=== PATIENT | male | born 1950 | race Caucasian/White ===

== ENCOUNTER → 2017-09-29 13:07 | Outpatient (CLI) | payer MEDICARE, MEDICAID, SELFPAY | PROVIDERS: Family Provider Family Medicine; PCP Family Medicine; Visit Provider Internal Medicine | DX: L89.611 Pressure ulcer of right heel, stage 1 (principal); G82.50 Quadriplegia, unspecified | CPT/HCPCS: 99213 ==

== ENCOUNTER → 2017-12-08 12:05 | Outpatient (CLI) | payer MEDICARE, MEDICAID, SELFPAY ==
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
== END ==
PROVIDERS: Family Provider Family Medicine; PCP Family Medicine; Visit Provider Internal Medicine
DX: G82.50 Quadriplegia, unspecified (principal); L89.153 Pressure ulcer of sacral region, stage 3
CPT/HCPCS: 11042; 11045

== ENCOUNTER → 2017-12-14 15:16 | Outpatient (CLI) | payer MEDICARE, MEDICAID, SELFPAY ==
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
== END ==
PROVIDERS: Family Provider Family Medicine; PCP Family Medicine; Visit Provider Internal Medicine
DX: L89.153 Pressure ulcer of sacral region, stage 3 (principal)
CPT/HCPCS: 11042

== ENCOUNTER → 2017-12-15 13:12 | Outpatient (REF) | payer MEDICARE, MEDICAID, SELFPAY ==
[2017-12-15 13:45] LABS: Appearance Urine UA CLEAR; Bilirubin Urine UA NEGATIVE (NEGATIVE); Color Urine UA YELLOW; Glucose Urine UA NEGATIVE (Normal); Ketones Urine UA NEGATIVE (NEGATIVE); Leukocyte Esterase Urine UA 2+ (NEGATIVE); Nitrite Urine UA POSITIVE (Negative); Occult Blood Urine UA 2+ (Negative); Protein Urine UA TRACE (Negative); Urobilinogen Urine UA 0.2 E.U./dL (0.2); pH Urine UA 7.5 (4.5-8.0)
[2017-12-15 14:08] LABS: Bacteria Urine Many (>30); Culture Indicated Urine Specimen Cultured; RBC Urine 0-1/HPF (0-5/HPF); WBC Urine 30-100/HPF (0-5/HPF)
== END ==
LOC: LAB 13:12
PROVIDERS: Family Provider Family Medicine; PCP Family Medicine; Visit Provider Family Medicine
DX: R39.9 Unspecified symptoms and signs involving the genitourinary system (principal)
CPT/HCPCS: 81001; 87077; 87086; 87186

== ENCOUNTER → 2017-12-21 11:15 | Outpatient (CLI) | payer MEDICARE, MEDICAID, SELFPAY ==
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
== END ==
PROVIDERS: Family Provider Family Medicine; PCP Family Medicine; Visit Provider Internal Medicine
DX: L89.153 Pressure ulcer of sacral region, stage 3 (principal); G82.21 Paraplegia, complete
CPT/HCPCS: 99213

== ENCOUNTER → 2018-04-04 15:32 | Outpatient (CLI) | payer MEDICARE, MEDICAID, SELFPAY ==
[2018-04-04 16:27] LABS: Appearance Urine UA CLOUDY; Bilirubin Urine UA NEGATIVE (NEGATIVE); Color Urine UA YELLOW; Glucose Urine UA NEGATIVE (Normal); Ketones Urine UA NEGATIVE (NEGATIVE); Leukocyte Esterase Urine UA 2+ (NEGATIVE); Nitrite Urine UA NEGATIVE (Negative); Occult Blood Urine UA 3+ (Negative); Protein Urine UA 2+ (Negative); Urobilinogen Urine UA 0.2 E.U./dL (0.2); pH Urine UA 8.5 (4.5-8.0)
[2018-04-04 16:45] LABS: RBC Urine 10-30/HPF (0-5/HPF); Squamous Epithelial Cell Urine 1-5 /HPF; WBC Urine 10-30/HPF (0-5/HPF)
[2018-04-04 16:46] LABS: Amorphous Sediment Urine 2+; Bacteria Urine Many (>30); Culture Indicated Urine Specimen Cultured; Mucus Urine 2+ (Negative)
== END ==
PROVIDERS: Family Provider Family Medicine; PCP Family Medicine; Visit Provider Family Medicine
DX: R30.0 Dysuria (principal)
CPT/HCPCS: 81003; 81015; 87077; 87086; 87186

== ENCOUNTER 2018-05-02 10:52 | Emergency (ER) | payer MEDICARE, MEDICAID, SELFPAY ==
[2018-05-02 11:22] VITALS: PULSE 86; RESP 12; TEMP 36.3; O2SAT 98
--- NOTE | 2018-05-02 11:31 | PC.NURSE ---
pt refused for bp to be taken and refused to be in stretcher.
--- NOTE | 2018-05-02 11:57 | PC.NURSE ---
24 FR found and placed at BS, awaiting MD assessment and orders
--- NOTE | 2018-05-02 12:55 | ED.MALEGU ---
HPI - Male Genitourinary <JANI Terry - Last Filed: 05/02/18 21:22> General Chief complaint: Urogenital-Male Stated complaint: CATH PULLED OUT Time Seen by Provider: 05/02/18 12:09 Source: patient Mode of arrival: wheelchair Limitations: no limitations History of Present Illness HPI Narrative: 67-year-old male with history of paraplegia is a everyday smoker here for complaint of his super pubic catheter being a accidentally pulled out last night. He states that the caregiver help to get him from his wheelchair into his bed when the catheter bag caught on the wheelchair and accidentally caused the catheter to come out. He states that he has not had the catheter in place for approximately 12 hr. He denies any discomfort. Denies any bleeding. He has been draining from the super pubic site is use been using a paper towel to absorb the urine. No other concerns or complaints today. MD Complaint: other Related Data Previous Rx's Medication Instructions Recorded Wheelchair Air Compression Cushion #1 ea 12/21/17 gabapentin 400 mg capsule 400 mg PO TID #90 cap 12/21/[address] #1 ea 01/24/18 ciprofloxacin 500 mg tablet 500 mg PO BID #30 tab 04/05/18 Allergies Allergy/AdvReac Type Severity Reaction Status Date / Time No Known Drug Allergies Allergy Unverified 12/07/17 16:42 Review of Systems <JANI Terry - Last Filed: 05/02/18 21:22> Constitutional Denies chills, Denies fever(s), Denies lethargy and Denies weakness Eyes Denies change in vision, Denies eye discharge, Denies irritation and Denies loss of vision ENT Ears, Nose, Mouth, and Throat: Denies change in voice, Denies neck pain and Denies sore throat Cardiovascular Denies chest pain, Denies irregular heart rhythm, Denies lightheadedness, Denies palpitations, Denies dyspnea, Denies dyspnea on exertion and Denies orthopnea Respiratory Denies cough, Denies dyspnea, Denies dyspnea on exertion and Denies wheezing Gastrointestinal Gastrointestinal: Denies abdominal pain, Denies change in bowel habits, Denies diarrhea, Denies nausea and Denies vomiting Genitourinary Comments: Suprapubic catheter accidentally removed Musculoskeletal Denies neck pain Integumentary/Breasts Denies pruritus, Denies erythema, Denies rash and Denies wounds Neurologic Denies confusion, Denies loss of vision and Denies weakness Psychiatric Denies anxiety, Denies confusion, Denies depression, Denies homicidal ideation and Denies suicidal ideation Endocrine Denies palpitations Hematologic/Lymphatic Denies easy bruising Allergic/Immunologic Denies wheezing Exam <JANI Terry - Last Filed: 05/02/18 21:22> Initial Vital Signs Initial Vital Signs: Vital Signs Temperature 97.3 F L 05/02/18 11:22 Pulse Rate 86 05/02/18 11:22 Respiratory Rate 12 05/02/18 11:22 Pulse Oximetry 98 05/02/18 11:22 Const General: cooperative and well developed Nutritional Appearance: well nourished Orientation: alert, awake, oriented x3 and not confused HENMT Mouth: oral mucosae normal and moist mucous membranes Throat: posterior oropharynx normal Eyes Conjunctivae: conjunctivae normal Sclera: sclerae normal Pupils: PERRL EOM: EOM intact bilaterally Resp Effort & Inspection: normal respiratory effort, able to speak in complete sentences, no respiratory distress and no use of accessory muscles Auscultation: clear to auscultation bilaterally, no rales, no rhonchi and no wheezes Cardio Rate: regular rate Rhythm: regular rhythm Heart Sounds: no click, no gallops, no murmurs and no rubs Pulses: normal peripheral pulses Other: Suprapubic site with no signs of trauma. No erythema. No signs of infection. <Suma Montaño DO - Last Filed: 05/05/18 13:17> Initial Vital Signs Initial Vital Signs: Vital Signs Temperature 97.3 F L 05/02/18 11:22 Pulse Rate 86 05/02/18 11:22 Respiratory Rate 12 05/02/18 11:22 Pulse Oximetry 98 05/02/18 11:22 Course <JANI Terry - Last Filed: 05/02/18 21:22> Vital Signs - 8 hr 05/02/18 11:22 Temperature 97.3 F L Pulse Rate 86 Respiratory Rate 12 Pulse Oximetry 98 <Suma Montaño DO - Last Filed: 05/05/18 13:17> Vital Signs - 8 hr 05/02/18 11:22 Temperature 97.3 F L Pulse Rate 86 Respiratory Rate 12 Pulse Oximetry 98 MDM - Male Genitourinary <Ivan WestJANI - Last Filed: 05/02/18 21:22> [facility] Narrative Medical decision making narrative: Discussed case with Dr. 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 Tyson. He states there is no contraindications in stock replacing the suprapubic catheter after 12 hr. Suprapubic catheter was replaced with 24 Romanian balloon catheter with no complications. Catheter is draining clear light urine. Follow up with primary care provider. Per follow up with Urology. Patient refused to have blood pressure checked today. For any worsening symptoms return emergency room. Discharge Plan Departure Patient Disposition: Home Clinical Impression: Encounter for suprapubic catheter care Discharge Date/Time: 05/02/18 14:38 Interventions: ED Discharge Assessment Last Done: 05/02/18 13:44 Instructions: How to Care for a Suprapubic Catheter Activity Restrictions/Additional Instructions: Suprapubic catheter was replaced today. Follow up with her primary care provider. Follow up with Urology. For any worsening symptoms return to the emergency room. Prescriptions: No Action Wheelchair Air Compression Cushion Qty: 1 RF: 0 gabapentin [Neurontin] 400 mg capsule 400 mg PO TID Qty: 90 RF: [address] Qty: 1 RF: 0 ciprofloxacin HCl 500 mg tablet 500 mg PO BID Qty: 30 RF: 0 Referrals: Jessie Haile DO [Primary Care Provider] - <Suma Montaño DO - Last Filed: 05/05/18 13:17> Cosign ED Attending Cosignature Attestation: I was immediately available in the department for consultation, case was discussed and plan to consult with urology. Per there recommendations catheter was placed, patient tolerated well and was draining. This documentation has been reviewed and I agree with assessment and plan. Supervised by Suma Montaño DO
== END 2018-05-02 14:38 | disposition home or self-care (01) ==
PROVIDERS: Emergency Provider Nurse Practitioner Family; Family Provider Family Medicine; PCP Family Medicine
DX: Z43.5 Encounter for attention to cystostomy (principal)
CPT/HCPCS: 99282

== ENCOUNTER → 2018-05-16 16:41 | Outpatient (CLI) | payer MEDICARE, MEDICAID, SELFPAY | PROVIDERS: Family Provider Family Medicine; PCP Family Medicine; Visit Provider Family Medicine | DX: J18.9 Pneumonia, unspecified organism (principal); R05 Cough | CPT/HCPCS: 87070; 87205 ==

== ENCOUNTER 2018-06-22 12:04 | Inpatient (IN) | payer MEDICARE, MEDICAID, SELFPAY ==
[2018-06-22] VITALS (11 sets, daily range): BP systolic 169–194; BP diastolic 75–120; PULSE 70–97; RESP 16–27; TEMP 36.6–36.8; O2SAT 93–100; BMI 17.4
--- NOTE | 2018-06-22 13:00 | ED.URI ---
HPI - URI/Sore Throat <JANI Terry - Last Filed: 06/22/18 21:37> General Chief Complaint: Upper Respiratory Symptoms Stated Complaint: REOCCURING PNUMONIA Time Seen by Provider: 06/22/18 13:00 Source: patient and other Mode of arrival: wheelchair Limitations: no limitations History of Present Illness HPI Narrative: 67-year-old male with history of paraplegia and is a everyday smoker here for complaint of having cough and and malaise over the past couple of days. He is concerned that he is starting to have pneumonia. He reports having a productive cough as well. Positive p.o. intake. He states he feels he may have had a fever over the past couple of days although has been checked. Positive chills. He has had positive p.o. intake although decreased appetite. No chest pain. No flank pain. He states that he had pneumonia in May and was treated with Levaquin. He reports that he did not complete the Levaquin treatment as I gave him diarrhea. Related Data Allergies Allergy/AdvReac Type Severity Reaction Status Date / Time No Known Drug Allergies Allergy Unverified 06/22/18 12:12 Review of Systems <JANI Terry - Last Filed: 06/22/18 21:37> Constitutional Reports chills, Reports fever(s), Denies lethargy and Denies weakness Eyes Denies change in vision, Denies eye discharge, Denies irritation and Denies loss of vision ENT Ears, Nose, Mouth, and Throat: Denies change in voice, Denies neck pain, Denies sore throat and Denies throat swelling Cardiovascular Denies chest pain, Denies irregular heart rhythm, Denies lightheadedness, Denies palpitations and Denies orthopnea Respiratory Reports cough and Denies wheezing Gastrointestinal Gastrointestinal: Denies abdominal pain, Denies change in bowel habits, Denies diarrhea, Denies nausea and Denies vomiting Genitourinary Denies hematuria, Denies flank pain, Denies urinary incontinence and Denies urinary urgency Musculoskeletal Denies neck pain Integumentary/Breasts Denies pruritus, Denies erythema, Denies rash and Denies wounds Neurologic Denies loss of vision and Denies weakness Endocrine Denies palpitations Allergic/Immunologic Denies urticaria, Denies throat swelling and Denies wheezing PFSH <JANI Terry - Last Filed: 06/22/18 21:37> Medical History Aortic stenosis (Chronic Unknown) COPD (chronic obstructive pulmonary disease) (Chronic Unknown) Erectile dysfunction (Chronic Unknown) Neurogenic bladder (Chronic Unknown) PAD (peripheral artery disease) (Chronic Unknown) Paraplegia (Chronic ~1969) Suprapubic catheter (Chronic Unknown) Surgical History History of ankle surgery (Resolved Unknown) History of bladder stone (Resolved ~09/2014) History of bladder surgery (Resolved Unknown) History of open reduction and internal fixation (ORIF) procedure (Resolved Unknown) History of pressure ulcer (Resolved Unknown) Hx of cataract surgery (Resolved Unknown) Family History Brother Diabetes mellitus Father Skin cancer Mother Diabetes mellitus Social History household members: family Smoking Status: Current every day smoker alcohol intake: current substance use type: marijuana Family History Brother Diabetes mellitus Father Skin cancer Mother Diabetes mellitus Social History household members: family Smoking Status: Current every day smoker alcohol intake: current substance use type: marijuana Exam <JANI Terry - Last Filed: 06/22/18 21:37> Initial Vital Signs Initial Vital Signs: Vital Signs Temperature 98.3 F 06/22/18 12:07 Pulse Rate 78 06/22/18 12:07 Respiratory Rate 20 06/22/18 12:07 Blood Pressure 176/88 H 06/22/18 12:07 Pulse Oximetry 93 06/22/18 12:07 Const General: cooperative and well developed Nutritional Appearance: well nourished Orientation: alert, awake, oriented x3 and not confused HENMT Mouth: oral mucosae normal and moist mucous membranes Eyes Conjunctivae: conjunctivae normal Sclera: sclerae normal Pupils: PERRL EOM: EOM intact bilaterally Resp Effort & Inspection: normal respiratory effort, able to speak in complete sentences, no respiratory distress and no use of accessory muscles Auscultation: clear to auscultation bilaterally, rales bilaterally, no rhonchi and no wheezes Cardio Rate: regular rate Rhythm: regular rhythm Heart Sounds: no click, no gallops, no murmurs and no rubs Pulses: normal peripheral pulses GI Inspection: non-distended Palpation: soft, no hepatosplenomegaly, No guarding, No pulsatile mass and No tender Auscultation: normal bowel sounds Skin General: no rashes or lesions noted, No jaundice and No petechiae Neuro General: alert and oriented x3 Speech: speech normal <Wayne Boothe DO - Last Filed: 06/27/18 07:36> Initial Vital Signs Initial Vital Signs: Vital Signs Temperature 98.3 F 06/22/18 12:07 Pulse Rate 78 06/22/18 12:07 Respiratory Rate 20 06/22/18 12:07 Blood Pressure 176/88 H 06/22/18 12:07 Pulse Oximetry 93 06/22/18 12:07 Course <JANI Terry - Last Filed: 06/22/18 21:37> Orders Ordered: Discontinued Medications Albuterol/Ipratropium (Duoneb) 3 ml INH NOW ONE Stop: 06/22/18 13:41 Last Admin: 06/22/18 13:44 Dose: 3 ml Albuterol/Ipratropium (Duoneb) 3 ml INH RTQ4HR PRN PRN Reason: Bronchospasm Last Admin: 06/23/18 09:05 Dose: 3 ml Furosemide (Lasix) 20 mg IV NOW ONE Stop: 06/23/18 15:45 Last Admin: 06/23/18 16:05 Dose: 20 mg Gabapentin (Neurontin) 200 mg PO NOW ONE Stop: 06/22/18 21:30 Last Admin: 06/22/18 22:30 Dose: 200 mg Gabapentin (Neurontin) 400 mg PO TID [facility] Last Admin: 06/23/18 21:10 Dose: 400 mg Heparin Sodium (Porcine) (Heparin) 5,000 unit SUBCUT BID [facility] Last Admin: 06/23/18 21:10 Dose: 5,000 unit Admin: 06/23/18 09:53 Dose: 5,000 unit Sodium Chloride (Normal Saline 0.9%) 1,000 mls @ 1,000 mls/hr IV BOLUS ONE Stop: 06/22/18 14:39 Last Infusion: 06/22/18 15:36 Dose: 0 mls/hr Admin: 06/22/18 13:49 Dose: 1,000 mls/hr Levofloxacin (Levaquin) 750 mg in 150 mls @ 100 mls/hr IV NOW ONE Stop: 06/22/18 17:09 Last Infusion: 06/22/18 18:32 Dose: 100 mls/hr Admin: 06/22/18 15:58 Dose: 100 mls/hr Sodium Chloride (Normal Saline 0.9%) 1,000 mls @ 1,000 mls/hr IV BOLUS ONE Stop: 06/22/18 16:39 Last Infusion: 06/22/18 18:33 Dose: 1,000 mls/hr Admin: 06/22/18 15:58 Dose: 1,000 mls/hr Ceftriaxone Sodium/Dextrose (Rocephin) 1 gm in 50 mls @ 100 mls/hr IV NOW ONE Stop: 06/22/18 18:25 Last Admin: 06/22/18 19:17 Dose: 100 mls/hr Sodium Chloride (Normal Saline 0.9%) 1,000 mls @ 80 mls/hr IV CONT [facility] Last Admin: 06/23/18 12:44 Dose: 80 mls/hr Infusion: 06/23/18 10:56 Dose: 80 mls/hr Admin: 06/22/18 22:26 Dose: 80 mls/hr Levofloxacin (Levaquin) 750 mg in 150 mls @ 100 mls/hr IV Q24H [facility] Last Infusion: 06/23/18 11:30 Dose: 0 mls/hr Admin: 06/23/18 09:53 Dose: 100 mls/hr Heparin Sodium/Dextrose (Heparin Drip) 25,000 unit in 500 mls @ 21.06 mls/hr IV CONT [facility]; Protocol Last Admin: 06/23/18 23:16 Dose: Not Given Piperacillin/Tazobactam/Dextrose (Zosyn) 3.375 gm in 50 mls @ 100 mls/hr IV Q6H [facility] Last Admin: 06/23/18 23:09 Dose: 100 mls/hr Lactobacillus Acidophilus (Bacid Caplet) 1 each PO BIDWM [facility] Last Admin: 06/23/18 17:21 Dose: 1 each Admin: 02/22/19 12:46 Dose: 1 each Lorazepam (Ativan) 0.25 mg IV Q4HR PRN PRN Reason: Anxiety Methylprednisolone (Solu-Medrol 125 Mg Vial) 125 mg IV NOW ONE Stop: 06/22/18 13:41 Last Admin: 06/22/18 13:49 Dose: 125 mg Morphine Sulfate (Morphine) 1 mg IV Q4HR PRN PRN Reason: Pain, Moderate (4-6) Last Admin: 06/23/18 20:19 Dose: 1 mg Admin: 06/23/18 16:14 Dose: 1 mg Nicotine (Nicoderm) 21 mg TOP DAILY [facility] Last Admin: 06/23/18 09:53 Dose: Not Given Nifedipine (Nifedipine) 10 mg PO Q20MIN [facility] Stop: 06/25/18 22:01 Last Admin: 06/23/18 11:32 Dose: Not Given Nifedipine (Nifedipine) 10 mg PO Q20MIN [facility] Stop: 06/24/18 22:01 Last Admin: 06/23/18 20:04 Dose: 10 mg Admin: 06/22/18 23:46 Dose: 10 mg Admin: 06/22/18 22:33 Dose: Not Given Prednisone (Deltasone) 40 mg PO DAILY [facility] Stop: 06/27/18 09:01 Last Admin: 06/23/18 12:46 Dose: 40 mg Vital Signs - 8 hr 06/22/18 13:44 06/22/18 14:55 06/22/18 15:30 Temperature Pulse Rate 97 H 91 H 95 H Respiratory Rate 24 21 24 Blood Pressure Blood Pressure [Right Arm] 172/120 H 184/101 H Pulse Oximetry 94 96 95 06/22/18 16:39 06/22/18 18:30 06/22/18 18:33 Temperature 98.1 F Pulse Rate 71 85 80 Respiratory Rate 25 H 19 21 Blood Pressure 171/112 H 174/93 H Blood Pressure [Right Arm] 171/104 H Pulse Oximetry 97 96 06/22/18 20:11 Temperature 97.9 F Pulse Rate 82 Respiratory Rate 20 Blood Pressure 187/75 H Blood Pressure [Right Arm] Pulse Oximetry 100 <Wayne Boothe DO - Last Filed: 06/27/18 07:36> Orders Ordered: Discontinued Medications Albuterol/Ipratropium (Duoneb) 3 ml INH NOW ONE Stop: 06/22/18 13:41 Last Admin: 06/22/18 13:44 Dose: 3 ml Albuterol/Ipratropium (Duoneb) 3 ml INH RTQ4HR PRN PRN Reason: Bronchospasm Last Admin: 06/23/18 09:05 Dose: 3 ml Furosemide (Lasix) 20 mg IV NOW ONE Stop: 06/23/18 15:45 Last Admin: 06/23/18 16:05 Dose: 20 mg Gabapentin (Neurontin) 200 mg PO NOW ONE Stop: 06/22/18 21:30 Last Admin: 06/22/18 22:30 Dose: 200 mg Gabapentin (Neurontin) 400 mg PO TID [facility] Last Admin: 06/23/18 21:10 Dose: 400 mg Heparin Sodium (Porcine) (Heparin) 5,000 unit SUBCUT BID [facility] Last Admin: 06/23/18 21:10 Dose: 5,000 unit Admin: 06/23/18 09:53 Dose: 5,000 unit Sodium Chloride (Normal Saline 0.9%) 1,000 mls @ 1,000 mls/hr IV BOLUS ONE Stop: 06/22/18 14:39 Last Infusion: 06/22/18 15:36 Dose: 0 mls/hr Admin: 06/22/18 13:49 Dose: 1,000 mls/hr Levofloxacin (Levaquin) 750 mg in 150 mls @ 100 mls/hr IV NOW ONE Stop: 06/22/18 17:09 Last Infusion: 06/22/18 18:32 Dose: 100 mls/hr Admin: 06/22/18 15:58 Dose: 100 mls/hr Sodium Chloride (Normal Saline 0.9%) 1,000 mls @ 1,000 mls/hr IV BOLUS ONE Stop: 06/22/18 16:39 Last Infusion: 06/22/18 18:33 Dose: 1,000 mls/hr Admin: 06/22/18 15:58 Dose: 1,000 mls/hr Ceftriaxone Sodium/Dextrose (Rocephin) 1 gm in 50 mls @ 100 mls/hr IV NOW ONE Stop: 06/22/18 18:25 Last Admin: 06/22/18 19:17 Dose: 100 mls/hr Sodium Chloride (Normal Saline 0.9%) 1,000 mls @ 80 mls/hr IV CONT [facility] Last Admin: 06/23/18 12:44 Dose: 80 mls/hr Infusion: 06/23/18 10:56 Dose: 80 mls/hr Admin: 06/22/18 22:26 Dose: 80 mls/hr Levofloxacin (Levaquin) 750 mg in 150 mls @ 100 mls/hr IV Q24H [facility] Last Infusion: 06/23/18 11:30 Dose: 0 mls/hr Admin: 06/23/18 09:53 Dose: 100 mls/hr Heparin Sodium/Dextrose (Heparin Drip) 25,000 unit in 500 mls @ 21.06 mls/hr IV CONT YENI; Protocol Last Admin: 06/23/18 23:16 Dose: Not Given Piperacillin/Tazobactam/Dextrose (Zosyn) 3.375 gm in 50 mls @ 100 mls/hr IV Q6H [facility] Last Admin: 06/23/18 23:09 Dose: 100 mls/hr Lactobacillus Acidophilus (Bacid Caplet) 1 each PO BIDWM [facility] Last Admin: 06/23/18 17:21 Dose: 1 each Admin: 06/23/18 12:46 Dose: 1 each Lorazepam (Ativan) 0.25 mg IV Q4HR PRN PRN Reason: Anxiety Methylprednisolone (Solu-Medrol 125 Mg Vial) 125 mg IV NOW ONE Stop: 06/22/18 13:41 Last Admin: 06/22/18 13:49 Dose: 125 mg Morphine Sulfate (Morphine) 1 mg IV Q4HR PRN PRN Reason: Pain, Moderate (4-6) Last Admin: 06/23/18 20:19 Dose: 1 mg Admin: 06/23/18 16:14 Dose: 1 mg Nicotine (Nicoderm) 21 mg TOP DAILY [facility] Last Admin: 06/23/18 09:53 Dose: Not Given Nifedipine (Nifedipine) 10 mg PO Q20MIN [facility] Stop: 06/25/18 22:01 Last Admin: 06/23/18 11:32 Dose: Not Given Nifedipine (Nifedipine) 10 mg PO Q20MIN [facility] Stop: 06/24/18 22:01 Last Admin: 06/23/18 20:04 Dose: 10 mg Admin: 06/22/18 23:46 Dose: 10 mg Admin: 06/22/18 22:33 Dose: Not Given Prednisone (Deltasone) 40 mg PO DAILY [facility] Stop: 06/27/18 09:01 Last Admin: 06/23/18 12:46 Dose: 40 mg Vital Signs - 8 hr 06/22/18 13:44 06/22/18 14:55 06/22/18 15:30 Temperature Pulse Rate 97 H 91 H 95 H Respiratory Rate 24 21 24 Blood Pressure Blood Pressure [Right Arm] 172/120 H 184/101 H Pulse Oximetry 94 96 95 06/22/18 16:39 06/22/18 18:30 06/22/18 18:33 Temperature 98.1 F Pulse Rate 71 85 80 Respiratory Rate 25 H 19 21 Blood Pressure 171/112 H 174/93 H Blood Pressure [Right Arm] 171/104 H Pulse Oximetry 97 96 06/22/18 20:11 Temperature 97.9 F Pulse Rate 82 Respiratory Rate 20 Blood Pressure 187/75 H Blood Pressure [Right Arm] Pulse Oximetry 100 MDM - URI/Sore Throat <JANI Terry - Last Filed: 06/22/18 21:37> Lab Data Result diagrams: 06/23/18 21:41 06/23/18 21:41 Lab Results 06/22/18 06/22/18 06/22/18 Range/Units 14:04 14:04 14:04 WBC 11.4 H (4.5-11.0) X10^3/uL RBC 4.91 (4.5-5.9) X10^6/uL Hgb 13.8 (13.5-17.5) g/dL Hct 42.6 (41-53) % MCV 86.8 (80-100) fL MCH 28.0 (26-34) PG MCHC 32.3 (30-36) % RDW 13.7 (11.6-14.8) % Plt Count 276 (150-400) X10^3/uL Neut % (Auto) 81.4 H (50-75) % Lymph % (Auto) 10.0 L (25-40) % Bent % (Auto) 6.7 (3-14) % Eos % (Auto) 1.3 L (2-4) % Baso % (Auto) 0.6 (0-2) % Neut # (Auto) 9300 H (4564-2787) /uL Lymph # (Auto) 1100 (1795-0272) /uL Bent # (Auto) 800 (0-900) /uL Eos # (Auto) 100 (0-450) /uL Baso # (Auto) 100 (0-100) /uL Total Counted Seg Neutrophils % (38-70) % Lymphocytes % (Manual) (25-45) % Monocytes % (Manual) (2-11) % Myelocytes % (-0) % Neutrophils # (Manual) (0424-1024) /uL RBC Morphology D-Dimer 654 H (<230) ng/mL ABG pH (7.35-7.45) ABG pCO2 (35-45) mmHg ABG pO2 (80-100) mmHg ABG HCO3 (22-26) mmol/L ABG Total CO2 (21-31) mmol/L ABG O2 Saturation (95-100) % ABG Base Excess (-2-2) mmol/L FiO2 Sodium 139 (137-145) mmol/L Potassium 4.5 (3.4-5.1) mmol/L Chloride 110 H (98-107) mmol/L Carbon Dioxide 17 L (22-32) mmol/L BUN 60 H (9-20) mg/dL Creatinine 1.90 H (0.66-1.25) mg/dL Estimated GFR 35.3 L (>60) mL/min BUN/Creatinine Ratio 31.6 H (6-22) Glucose 103 (80-110) mg/dL Lactate (0.7-2.1) mmol/L Calcium 8.9 (8.4-10.2) mg/dL Magnesium 2.0 (1.6-2.3) mg/dL Total Bilirubin (0.2-1.3) mg/dL AST (17-59) IU/L ALT (21-72) IU/L Alkaline Phosphatase (38-126) U/L Total Creatine Kinase 46 L (55-170) U/L CK-MB (CK-2) TNP CK-MB (CK-2) Rel Index TNP Troponin I 0.061 H (0.01-0.034) ng/mL B-Natriuretic Peptide 1150 H (<100) Total Protein (6.3-8.2) g/dL Albumin (3.5-5.0) g/dL Globulin (1.7-4.1) g/dL Albumin/Globulin Ratio (1.0-2.8) Procalcitonin (<0.5) ng/mL Urine Color Urine Appearance Urine pH (4.5-8.0) Ur Specific [place] (1.000-1.035) Urine Protein (Negative) Urine Glucose (UA) (Negative) g/dL Urine Ketones (NEGATIVE) Urine Occult Blood (Negative) Urine Nitrate (Negative) Urine Bilirubin (NEGATIVE) Urine Urobilinogen (0.2) E.U./dL Ur Leukocyte Esterase (NEGATIVE) Urine RBC (0-5/HPF) Urine WBC (0-5/HPF) Ur Squamous Epith Cells Calcium Oxalate Crystal (None) Amorphous Sediment Urine Bacteria (None) Urine Mucus (Negative) Ur Culture Indicated? Chlamy pneumoniae PCR (Not Detect) Adenovirus (PCR) (Not Detect) B.parapertussis DNA PCR (Not Detect) Coronavirus OC43 (PCR) (Not Detect) Coronavirus HKU1 (PCR) (Not Detect) Coronavirus 229E (PCR) (Not Detect) Coronavirus NL63 (PCR) (Not Detect) Human Metapneumovir PCR (Not Detect) Influenza Type A (PCR) (Not Detect) Influenza Type B (PCR) (Not Detect) Influenza A & B (PCR) (Negative) M. pneumoniae (PCR) (Not Detect) Parainfluenza 1 (PCR) (Not Detect) Parainfluenza 2 (PCR) (Not Detect) Parainfluenza 3 (PCR) (Not Detect) Parainfluenza 4 (PCR) (Not Detect) RSV (PCR) (Not Detect) Entero/Rhino (PCR) (Not Detect) Blood Type Antibody Screen Antibody Identification 06/22/18 06/22/18 06/22/18 Range/Units 14:04 14:04 15:18 WBC (4.5-11.0) X10^3/uL RBC (4.5-5.9) X10^6/uL Hgb (13.5-17.5) g/dL Hct (41-53) % MCV (80-100) fL MCH (26-34) PG MCHC (30-36) % RDW (11.6-14.8) % Plt Count (150-400) X10^3/uL Neut % (Auto) (50-75) % Lymph % (Auto) (25-40) % Bent % (Auto) (3-14) % Eos % (Auto) (2-4) % Baso % (Auto) (0-2) % Neut # (Auto) (8584-8853) /uL Lymph # (Auto) (9140-3584) /uL Bent # (Auto) (0-900) /uL Eos # (Auto) (0-450) /uL Baso # (Auto) (0-100) /uL Total Counted Seg Neutrophils % (38-70) % Lymphocytes % (Manual) (25-45) % Monocytes % (Manual) (2-11) % Myelocytes % (-0) % Neutrophils # (Manual) (5705-7189) /uL RBC Morphology D-Dimer (<230) ng/mL ABG pH (7.35-7.45) ABG pCO2 (35-45) mmHg ABG pO2 (80-100) mmHg ABG HCO3 (22-26) mmol/L ABG Total CO2 (21-31) mmol/L ABG O2 Saturation (95-100) % ABG Base Excess (-2-2) mmol/L FiO2 Sodium (137-145) mmol/L Potassium (3.4-5.1) mmol/L Chloride (98-107) mmol/L Carbon Dioxide (22-32) mmol/L BUN (9-20) mg/dL Creatinine (0.66-1.25) mg/dL Estimated GFR (>60) mL/min BUN/Creatinine Ratio (6-22) Glucose (80-110) mg/dL Lactate 0.8 (0.7-2.1) mmol/L Calcium (8.4-10.2) mg/dL Magnesium (1.6-2.3) mg/dL Total Bilirubin (0.2-1.3) mg/dL AST (17-59) IU/L ALT (21-72) IU/L Alkaline Phosphatase (38-126) U/L Total Creatine Kinase (55-170) U/L CK-MB (CK-2) CK-MB (CK-2) Rel Index Troponin I (0.01-0.034) ng/mL B-Natriuretic Peptide (<100) Total Protein (6.3-8.2) g/dL Albumin (3.5-5.0) g/dL Globulin (1.7-4.1) g/dL Albumin/Globulin Ratio (1.0-2.8) Procalcitonin < 0.05 (<0.5) ng/mL Urine Color Urine Appearance Urine pH (4.5-8.0) Ur Specific [place] (1.000-1.035) Urine Protein (Negative) Urine Glucose (UA) (Negative) g/dL Urine Ketones (NEGATIVE) Urine Occult Blood (Negative) Urine Nitrate (Negative) Urine Bilirubin (NEGATIVE) Urine Urobilinogen (0.2) E.U./dL Ur Leukocyte Esterase (NEGATIVE) Urine RBC 0-1/hpf D (0-5/HPF) Urine WBC 10-30/hpf H (0-5/HPF) Ur Squamous Epith Cells 0-1 /hpf Calcium Oxalate Crystal (None) Amorphous Sediment 2+ Urine Bacteria Many (>30) H (None) Urine Mucus (Negative) Ur Culture Indicated? Specimen cultured Chlamy pneumoniae PCR (Not Detect) Adenovirus (PCR) (Not Detect) B.parapertussis DNA PCR (Not Detect) Coronavirus OC43 (PCR) (Not Detect) Coronavirus HKU1 (PCR) (Not Detect) Coronavirus 229E (PCR) (Not Detect) Coronavirus NL63 (PCR) (Not Detect) Human Metapneumovir PCR (Not Detect) Influenza Type A (PCR) (Not Detect) Influenza Type B (PCR) (Not Detect) Influenza A & B (PCR) (Negative) M. pneumoniae (PCR) (Not Detect) Parainfluenza 1 (PCR) (Not Detect) Parainfluenza 2 (PCR) (Not Detect) Parainfluenza 3 (PCR) (Not Detect) Parainfluenza 4 (PCR) (Not Detect) RSV (PCR) (Not Detect) Entero/Rhino (PCR) (Not Detect) Blood Type Antibody Screen Antibody Identification 06/22/18 06/22/18 06/22/18 Range/Units 15:40 21:24 21:24 WBC (4.5-11.0) X10^3/uL RBC (4.5-5.9) X10^6/uL Hgb (13.5-17.5) g/dL Hct (41-53) % MCV (80-100) fL MCH (26-34) PG MCHC (30-36) % RDW (11.6-14.8) % Plt Count (150-400) X10^3/uL Neut % (Auto) (50-75) % Lymph % (Auto) (25-40) % Bent % (Auto) (3-14) % Eos % (Auto) (2-4) % Baso % (Auto) (0-2) % Neut # (Auto) (5011-5879) /uL Lymph # (Auto) (4225-3143) /uL Bent # (Auto) (0-900) /uL Eos # (Auto) (0-450) /uL Baso # (Auto) (0-100) /uL Total Counted Seg Neutrophils % (38-70) % Lymphocytes % (Manual) (25-45) % Monocytes % (Manual) (2-11) % Myelocytes % (-0) % Neutrophils # (Manual) (4430-4912) /uL RBC Morphology D-Dimer (<230) ng/mL ABG pH (7.35-7.45) ABG pCO2 (35-45) mmHg ABG pO2 (80-100) mmHg ABG HCO3 (22-26) mmol/L ABG Total CO2 (21-31) mmol/L ABG O2 Saturation (95-100) % ABG Base Excess (-2-2) mmol/L FiO2 Sodium (137-145) mmol/L Potassium (3.4-5.1) mmol/L Chloride (98-107) mmol/L Carbon Dioxide (22-32) mmol/L BUN (9-20) mg/dL Creatinine (0.66-1.25) mg/dL Estimated GFR (>60) mL/min BUN/Creatinine Ratio (6-22) Glucose (80-110) mg/dL Lactate 0.9 (0.7-2.1) mmol/L Calcium (8.4-10.2) mg/dL Magnesium (1.6-2.3) mg/dL Total Bilirubin (0.2-1.3) mg/dL AST (17-59) IU/L ALT (21-72) IU/L Alkaline Phosphatase (38-126) U/L Total Creatine Kinase (55-170) U/L CK-MB (CK-2) CK-MB (CK-2) Rel Index Troponin I 0.075 H (0.01-0.034) ng/mL B-Natriuretic Peptide (<100) Total Protein (6.3-8.2) g/dL Albumin (3.5-5.0) g/dL Globulin (1.7-4.1) g/dL Albumin/Globulin Ratio (1.0-2.8) Procalcitonin (<0.5) ng/mL Urine Color Urine Appearance Urine pH (4.5-8.0) Ur Specific [place] (1.000-1.035) Urine Protein (Negative) Urine Glucose (UA) (Negative) g/dL Urine Ketones (NEGATIVE) Urine Occult Blood (Negative) Urine Nitrate (Negative) Urine Bilirubin (NEGATIVE) Urine Urobilinogen (0.2) E.U./dL Ur Leukocyte Esterase (NEGATIVE) Urine RBC (0-5/HPF) Urine WBC (0-5/HPF) Ur Squamous Epith Cells Calcium Oxalate Crystal (None) Amorphous Sediment Urine Bacteria (None) Urine Mucus (Negative) Ur Culture Indicated? Chlamy pneumoniae PCR (Not Detect) Adenovirus (PCR) (Not Detect) B.parapertussis DNA PCR (Not Detect) Coronavirus OC43 (PCR) (Not Detect) Coronavirus HKU1 (PCR) (Not Detect) Coronavirus 229E (PCR) (Not Detect) Coronavirus NL63 (PCR) (Not Detect) Human Metapneumovir PCR (Not Detect) Influenza Type A (PCR) (Not Detect) Influenza Type B (PCR) (Not Detect) Influenza A & B (PCR) Negative (Negative) M. pneumoniae (PCR) (Not Detect) Parainfluenza 1 (PCR) (Not Detect) Parainfluenza 2 (PCR) (Not Detect) Parainfluenza 3 (PCR) (Not Detect) Parainfluenza 4 (PCR) (Not Detect) RSV (PCR) (Not Detect) Entero/Rhino (PCR) (Not Detect) Blood Type Antibody Screen Antibody Identification 06/22/18 06/22/18 06/22/18 Range/Units 21:27 21:36 23:10 WBC (4.5-11.0) X10^3/uL RBC (4.5-5.9) X10^6/uL Hgb (13.5-17.5) g/dL Hct (41-53) % MCV (80-100) fL MCH (26-34) PG MCHC (30-36) % RDW (11.6-14.8) % Plt Count (150-400) X10^3/uL Neut % (Auto) (50-75) % Lymph % (Auto) (25-40) % Bent % (Auto) (3-14) % Eos % (Auto) (2-4) % Baso % (Auto) (0-2) % Neut # (Auto) (6400-5150) /uL Lymph # (Auto) (0112-5344) /uL Bent # (Auto) (0-900) /uL Eos # (Auto) (0-450) /uL Baso # (Auto) (0-100) /uL Total Counted Seg Neutrophils % (38-70) % Lymphocytes % (Manual) (25-45) % Monocytes % (Manual) (2-11) % Myelocytes % (-0) % Neutrophils # (Manual) (6002-0934) /uL RBC Morphology D-Dimer (<230) ng/mL ABG pH 7.30 L (7.35-7.45) ABG pCO2 30.6 L (35-45) mmHg ABG pO2 71 L (80-100) mmHg ABG HCO3 15 L (22-26) mmol/L ABG Total CO2 16 L (21-31) mmol/L ABG O2 Saturation 93 L (95-100) % ABG Base Excess -11.0 L (-2-2) mmol/L FiO2 21 Sodium (137-145) mmol/L Potassium (3.4-5.1) mmol/L Chloride (98-107) mmol/L Carbon Dioxide (22-32) mmol/L BUN (9-20) mg/dL Creatinine (0.66-1.25) mg/dL Estimated GFR (>60) mL/min BUN/Creatinine Ratio (6-22) Glucose (80-110) mg/dL Lactate (0.7-2.1) mmol/L Calcium (8.4-10.2) mg/dL Magnesium (1.6-2.3) mg/dL Total Bilirubin (0.2-1.3) mg/dL AST (17-59) IU/L ALT (21-72) IU/L Alkaline Phosphatase (38-126) U/L Total Creatine Kinase (55-170) U/L CK-MB (CK-2) CK-MB (CK-2) Rel Index Troponin I (0.01-0.034) ng/mL B-Natriuretic Peptide (<100) Total Protein (6.3-8.2) g/dL Albumin (3.5-5.0) g/dL Globulin (1.7-4.1) g/dL Albumin/Globulin Ratio (1.0-2.8) Procalcitonin (<0.5) ng/mL Urine Color Yellow Urine Appearance Turbid Urine pH 7.5 (4.5-8.0) Ur Specific [place] 1.015 (1.000-1.035) Urine Protein 3+ H (Negative) Urine Glucose (UA) Negative (Negative) g/dL Urine Ketones Negative (NEGATIVE) Urine Occult Blood 1+ H (Negative) Urine Nitrate Positive (Negative) Urine Bilirubin Negative (NEGATIVE) Urine Urobilinogen 0.2 (0.2) E.U./dL Ur Leukocyte Esterase 1+ H (NEGATIVE) Urine RBC 0-1/hpf (0-5/HPF) Urine WBC 30-100/hpf H (0-5/HPF) Ur Squamous Epith Cells 1-5 /hpf Calcium Oxalate Crystal Occasional H (None) Amorphous Sediment Urine Bacteria Many (>30) H (None) Urine Mucus 3+ H (Negative) Ur Culture Indicated? Specimen cultured Chlamy pneumoniae PCR Not detected (Not Detect) Adenovirus (PCR) Not detected (Not Detect) B.parapertussis DNA PCR Not detected (Not Detect) Coronavirus OC43 (PCR) Not detected (Not Detect) Coronavirus HKU1 (PCR) Not detected (Not Detect) Coronavirus 229E (PCR) Not detected (Not Detect) Coronavirus NL63 (PCR) Not detected (Not Detect) Human Metapneumovir PCR Not detected (Not Detect) Influenza Type A (PCR) Not detected (Not Detect) Influenza Type B (PCR) Not detected (Not Detect) Influenza A & B (PCR) (Negative) M. pneumoniae (PCR) Not detected (Not Detect) Parainfluenza 1 (PCR) Not detected (Not Detect) Parainfluenza 2 (PCR) Not detected (Not Detect) Parainfluenza 3 (PCR) Not detected (Not Detect) Parainfluenza 4 (PCR) Not detected (Not Detect) RSV (PCR) Not detected (Not Detect) Entero/Rhino (PCR) Not detected (Not Detect) Blood Type Antibody Screen Antibody Identification 06/23/18 06/23/18 06/23/18 Range/Units 01:58 06:25 06:25 WBC 6.8 (4.5-11.0) X10^3/uL RBC 4.63 (4.5-5.9) X10^6/uL Hgb 13.0 L (13.5-17.5) g/dL Hct 40.5 L (41-53) % MCV 87.4 (80-100) fL MCH 28.0 (26-34) PG MCHC 32.1 (30-36) % RDW 14.0 (11.6-14.8) % Plt Count 259 (150-400) X10^3/uL Neut % (Auto) (50-75) % Lymph % (Auto) (25-40) % Bent % (Auto) (3-14) % Eos % (Auto) (2-4) % Baso % (Auto) (0-2) % Neut # (Auto) (6764-7462) /uL Lymph # (Auto) (8583-3942) /uL Bent # (Auto) (0-900) /uL Eos # (Auto) (0-450) /uL Baso # (Auto) (0-100) /uL Total Counted 100 Seg Neutrophils % 89.0 H (38-70) % Lymphocytes % (Manual) 6.0 L (25-45) % Monocytes % (Manual) 4.0 (2-11) % Myelocytes % 1.0 H (-0) % Neutrophils # (Manual) 6052 H (0935-6048) /uL RBC Morphology Normal morphology D-Dimer (<230) ng/mL ABG pH (7.35-7.45) ABG pCO2 (35-45) mmHg ABG pO2 (80-100) mmHg ABG HCO3 (22-26) mmol/L ABG Total CO2 (21-31) mmol/L ABG O2 Saturation (95-100) % ABG Base Excess (-2-2) mmol/L FiO2 Sodium 140 (137-145) mmol/L Potassium 4.9 (3.4-5.1) mmol/L Chloride 113 H (98-107) mmol/L Carbon Dioxide 16 L (22-32) mmol/L BUN 61 H (9-20) mg/dL Creatinine 2.10 H (0.66-1.25) mg/dL Estimated GFR 31.5 L (>60) mL/min BUN/Creatinine Ratio 29.0 H (6-22) Glucose 109 (80-110) mg/dL Lactate (0.7-2.1) mmol/L Calcium 8.7 (8.4-10.2) mg/dL Magnesium 1.9 (1.6-2.3) mg/dL Total Bilirubin (0.2-1.3) mg/dL AST (17-59) IU/L ALT (21-72) IU/L Alkaline Phosphatase (38-126) U/L Total Creatine Kinase (55-170) U/L CK-MB (CK-2) CK-MB (CK-2) Rel Index Troponin I 0.075 H (0.01-0.034) ng/mL B-Natriuretic Peptide (<100) Total Protein (6.3-8.2) g/dL Albumin (3.5-5.0) g/dL Globulin (1.7-4.1) g/dL Albumin/Globulin Ratio (1.0-2.8) Procalcitonin (<0.5) ng/mL Urine Color Urine Appearance Urine pH (4.5-8.0) Ur Specific [place] (1.000-1.035) Urine Protein (Negative) Urine Glucose (UA) (Negative) g/dL Urine Ketones (NEGATIVE) Urine Occult Blood (Negative) Urine Nitrate (Negative) Urine Bilirubin (NEGATIVE) Urine Urobilinogen (0.2) E.U./dL Ur Leukocyte Esterase (NEGATIVE) Urine RBC (0-5/HPF) Urine WBC (0-5/HPF) Ur Squamous Epith Cells Calcium Oxalate Crystal (None) Amorphous Sediment Urine Bacteria (None) Urine Mucus (Negative) Ur Culture Indicated? Chlamy pneumoniae PCR (Not Detect) Adenovirus (PCR) (Not Detect) B.parapertussis DNA PCR (Not Detect) Coronavirus OC43 (PCR) (Not Detect) Coronavirus HKU1 (PCR) (Not Detect) Coronavirus 229E (PCR) (Not Detect) Coronavirus NL63 (PCR) (Not Detect) Human Metapneumovir PCR (Not Detect) Influenza Type A (PCR) (Not Detect) Influenza Type B (PCR) (Not Detect) Influenza A & B (PCR) (Negative) M. pneumoniae (PCR) (Not Detect) Parainfluenza 1 (PCR) (Not Detect) Parainfluenza 2 (PCR) (Not Detect) Parainfluenza 3 (PCR) (Not Detect) Parainfluenza 4 (PCR) (Not Detect) RSV (PCR) (Not Detect) Entero/Rhino (PCR) (Not Detect) Blood Type Antibody Screen Antibody Identification 06/23/18 06/23/18 06/23/18 Range/Units 06:25 16:09 21:38 WBC (4.5-11.0) X10^3/uL RBC (4.5-5.9) X10^6/uL Hgb (13.5-17.5) g/dL Hct (41-53) % MCV (80-100) fL MCH (26-34) PG MCHC (30-36) % RDW (11.6-14.8) % Plt Count (150-400) X10^3/uL Neut % (Auto) (50-75) % Lymph % (Auto) (25-40) % Bent % (Auto) (3-14) % Eos % (Auto) (2-4) % Baso % (Auto) (0-2) % Neut # (Auto) (1185-8655) /uL Lymph # (Auto) (0801-9149) /uL Bent # (Auto) (0-900) /uL Eos # (Auto) (0-450) /uL Baso # (Auto) (0-100) /uL Total Counted Seg Neutrophils % (38-70) % Lymphocytes % (Manual) (25-45) % Monocytes % (Manual) (2-11) % Myelocytes % (-0) % Neutrophils # (Manual) (5642-8690) /uL RBC Morphology D-Dimer (<230) ng/mL ABG pH 7.22 L* (7.35-7.45) ABG pCO2 38.7 (35-45) mmHg ABG pO2 59 L (80-100) mmHg ABG HCO3 16 L (22-26) mmol/L ABG Total CO2 17 L (21-31) mmol/L ABG O2 Saturation 85 L (95-100) % ABG Base Excess -12.0 L (-2-2) mmol/L FiO2 0.21 Sodium (137-145) mmol/L Potassium (3.4-5.1) mmol/L Chloride (98-107) mmol/L Carbon Dioxide (22-32) mmol/L BUN (9-20) mg/dL Creatinine 1.90 H (0.66-1.25) mg/dL Estimated GFR 35.3 L (>60) mL/min BUN/Creatinine Ratio (6-22) Glucose (80-110) mg/dL Lactate (0.7-2.1) mmol/L Calcium (8.4-10.2) mg/dL Magnesium (1.6-2.3) mg/dL Total Bilirubin (0.2-1.3) mg/dL AST (17-59) IU/L ALT (21-72) IU/L Alkaline Phosphatase (38-126) U/L Total Creatine Kinase (55-170) U/L CK-MB (CK-2) CK-MB (CK-2) Rel Index Troponin I 0.074 H (0.01-0.034) ng/mL B-Natriuretic Peptide (<100) Total Protein (6.3-8.2) g/dL Albumin (3.5-5.0) g/dL Globulin (1.7-4.1) g/dL Albumin/Globulin Ratio (1.0-2.8) Procalcitonin (<0.5) ng/mL Urine Color Urine Appearance Urine pH (4.5-8.0) Ur Specific [place] (1.000-1.035) Urine Protein (Negative) Urine Glucose (UA) (Negative) g/dL Urine Ketones (NEGATIVE) Urine Occult Blood (Negative) Urine Nitrate (Negative) Urine Bilirubin (NEGATIVE) Urine Urobilinogen (0.2) E.U./dL Ur Leukocyte Esterase (NEGATIVE) Urine RBC (0-5/HPF) Urine WBC (0-5/HPF) Ur Squamous Epith Cells Calcium Oxalate Crystal (None) Amorphous Sediment Urine Bacteria (None) Urine Mucus (Negative) Ur Culture Indicated? Chlamy pneumoniae PCR (Not Detect) Adenovirus (PCR) (Not Detect) B.parapertussis DNA PCR (Not Detect) Coronavirus OC43 (PCR) (Not Detect) Coronavirus HKU1 (PCR) (Not Detect) Coronavirus 229E (PCR) (Not Detect) Coronavirus NL63 (PCR) (Not Detect) Human Metapneumovir PCR (Not Detect) Influenza Type A (PCR) (Not Detect) Influenza Type B (PCR) (Not Detect) Influenza A & B (PCR) (Negative) M. pneumoniae (PCR) (Not Detect) Parainfluenza 1 (PCR) (Not Detect) Parainfluenza 2 (PCR) (Not Detect) Parainfluenza 3 (PCR) (Not Detect) Parainfluenza 4 (PCR) (Not Detect) RSV (PCR) (Not Detect) Entero/Rhino (PCR) (Not Detect) Blood Type Antibody Screen Antibody Identification 06/23/18 06/23/18 06/23/18 Range/Units 21:41 21:41 21:41 WBC 8.2 (4.5-11.0) X10^3/uL RBC 4.55 (4.5-5.9) X10^6/uL Hgb 12.8 L (13.5-17.5) g/dL Hct 40.1 L (41-53) % MCV 88.2 (80-100) fL MCH 28.1 (26-34) PG MCHC 31.9 (30-36) % RDW 14.2 (11.6-14.8) % Plt Count 267 (150-400) X10^3/uL Neut % (Auto) 92.3 H (50-75) % Lymph % (Auto) 5.8 L (25-40) % Bent % (Auto) 1.8 L (3-14) % Eos % (Auto) 0.0 L (2-4) % Baso % (Auto) 0.1 (0-2) % Neut # (Auto) 7600 H (4820-8542) /uL Lymph # (Auto) 500 L (0296-1220) /uL Bent # (Auto) 200 (0-900) /uL Eos # (Auto) 0 (0-450) /uL Baso # (Auto) 0 (0-100) /uL Total Counted Seg Neutrophils % (38-70) % Lymphocytes % (Manual) (25-45) % Monocytes % (Manual) (2-11) % Myelocytes % (-0) % Neutrophils # (Manual) (0412-9755) /uL RBC Morphology D-Dimer (<230) ng/mL ABG pH (7.35-7.45) ABG pCO2 (35-45) mmHg ABG pO2 (80-100) mmHg ABG HCO3 (22-26) mmol/L ABG Total CO2 (21-31) mmol/L ABG O2 Saturation (95-100) % ABG Base Excess (-2-2) mmol/L FiO2 Sodium 140 (137-145) mmol/L Potassium 5.2 H (3.4-5.1) mmol/L Chloride 112 H (98-107) mmol/L Carbon Dioxide 17 L (22-32) mmol/L BUN 73 H (9-20) mg/dL Creatinine 2.40 H (0.66-1.25) mg/dL Estimated GFR 27.0 L (>60) mL/min BUN/Creatinine Ratio 30.4 H (6-22) Glucose 138 H (80-110) mg/dL Lactate (0.7-2.1) mmol/L Calcium 8.8 (8.4-10.2) mg/dL Magnesium (1.6-2.3) mg/dL Total Bilirubin 0.3 (0.2-1.3) mg/dL AST 39 (17-59) IU/L ALT 45 (21-72) IU/L Alkaline Phosphatase 55 (38-126) U/L Total Creatine Kinase (55-170) U/L CK-MB (CK-2) CK-MB (CK-2) Rel Index Troponin I 0.205 H* (0.01-0.034) ng/mL B-Natriuretic Peptide (<100) Total Protein 6.2 L (6.3-8.2) g/dL Albumin 3.2 L (3.5-5.0) g/dL Globulin 3.0 (1.7-4.1) g/dL Albumin/Globulin Ratio 1.1 (1.0-2.8) Procalcitonin (<0.5) ng/mL Urine Color Urine Appearance Urine pH (4.5-8.0) Ur Specific [place] (1.000-1.035) Urine Protein (Negative) Urine Glucose (UA) (Negative) g/dL Urine Ketones (NEGATIVE) Urine Occult Blood (Negative) Urine Nitrate (Negative) Urine Bilirubin (NEGATIVE) Urine Urobilinogen (0.2) E.U./dL Ur Leukocyte Esterase (NEGATIVE) Urine RBC (0-5/HPF) Urine WBC (0-5/HPF) Ur Squamous Epith Cells Calcium Oxalate Crystal (None) Amorphous Sediment Urine Bacteria (None) Urine Mucus (Negative) Ur Culture Indicated? Chlamy pneumoniae PCR (Not Detect) Adenovirus (PCR) (Not Detect) B.parapertussis DNA PCR (Not Detect) Coronavirus OC43 (PCR) (Not Detect) Coronavirus HKU1 (PCR) (Not Detect) Coronavirus 229E (PCR) (Not Detect) Coronavirus NL63 (PCR) (Not Detect) Human Metapneumovir PCR (Not Detect) Influenza Type A (PCR) (Not Detect) Influenza Type B (PCR) (Not Detect) Influenza A & B (PCR) (Negative) M. pneumoniae (PCR) (Not Detect) Parainfluenza 1 (PCR) (Not Detect) Parainfluenza 2 (PCR) (Not Detect) Parainfluenza 3 (PCR) (Not Detect) Parainfluenza 4 (PCR) (Not Detect) RSV (PCR) (Not Detect) Entero/Rhino (PCR) (Not Detect) Blood Type Antibody Screen Antibody Identification 06/23/18 06/23/18 Range/Units 21:41 22:57 WBC (4.5-11.0) X10^3/uL RBC (4.5-5.9) X10^6/uL Hgb (13.5-17.5) g/dL Hct (41-53) % MCV (80-100) fL MCH (26-34) PG MCHC (30-36) % RDW (11.6-14.8) % Plt Count (150-400) X10^3/uL Neut % (Auto) (50-75) % Lymph % (Auto) (25-40) % Bent % (Auto) (3-14) % Eos % (Auto) (2-4) % Baso % (Auto) (0-2) % Neut # (Auto) (8125-3154) /uL Lymph # (Auto) (8055-9959) /uL Bent # (Auto) (0-900) /uL Eos # (Auto) (0-450) /uL Baso # (Auto) (0-100) /uL Total Counted Seg Neutrophils % (38-70) % Lymphocytes % (Manual) (25-45) % Monocytes % (Manual) (2-11) % Myelocytes % (-0) % Neutrophils # (Manual) (9264-4698) /uL RBC Morphology D-Dimer (<230) ng/mL ABG pH 7.25 L* (7.35-7.45) ABG pCO2 36.0 (35-45) mmHg ABG pO2 118 H (80-100) mmHg ABG HCO3 16 L (22-26) mmol/L ABG Total CO2 17 L (21-31) mmol/L ABG O2 Saturation 98 (95-100) % ABG Base Excess -12.0 L (-2-2) mmol/L FiO2 0.35 Sodium (137-145) mmol/L Potassium (3.4-5.1) mmol/L Chloride (98-107) mmol/L Carbon Dioxide (22-32) mmol/L BUN (9-20) mg/dL Creatinine (0.66-1.25) mg/dL Estimated GFR (>60) mL/min BUN/Creatinine Ratio (6-22) Glucose (80-110) mg/dL Lactate (0.7-2.1) mmol/L Calcium (8.4-10.2) mg/dL Magnesium (1.6-2.3) mg/dL Total Bilirubin (0.2-1.3) mg/dL AST (17-59) IU/L ALT (21-72) IU/L Alkaline Phosphatase (38-126) U/L Total Creatine Kinase (55-170) U/L CK-MB (CK-2) CK-MB (CK-2) Rel Index Troponin I (0.01-0.034) ng/mL B-Natriuretic Peptide (<100) Total Protein (6.3-8.2) g/dL Albumin (3.5-5.0) g/dL Globulin (1.7-4.1) g/dL Albumin/Globulin Ratio (1.0-2.8) Procalcitonin (<0.5) ng/mL Urine Color Urine Appearance Urine pH (4.5-8.0) Ur Specific [place] (1.000-1.035) Urine Protein (Negative) Urine Glucose (UA) (Negative) g/dL Urine Ketones (NEGATIVE) Urine Occult Blood (Negative) Urine Nitrate (Negative) Urine Bilirubin (NEGATIVE) Urine Urobilinogen (0.2) E.U./dL Ur Leukocyte Esterase (NEGATIVE) Urine RBC (0-5/HPF) Urine WBC (0-5/HPF) Ur Squamous Epith Cells Calcium Oxalate Crystal (None) Amorphous Sediment Urine Bacteria (None) Urine Mucus (Negative) Ur Culture Indicated? Chlamy pneumoniae PCR (Not Detect) Adenovirus (PCR) (Not Detect) B.parapertussis DNA PCR (Not Detect) Coronavirus OC43 (PCR) (Not Detect) Coronavirus HKU1 (PCR) (Not Detect) Coronavirus 229E (PCR) (Not Detect) Coronavirus NL63 (PCR) (Not Detect) Human Metapneumovir PCR (Not Detect) Influenza Type A (PCR) (Not Detect) Influenza Type B (PCR) (Not Detect) Influenza A & B (PCR) (Negative) M. pneumoniae (PCR) (Not Detect) Parainfluenza 1 (PCR) (Not Detect) Parainfluenza 2 (PCR) (Not Detect) Parainfluenza 3 (PCR) (Not Detect) Parainfluenza 4 (PCR) (Not Detect) RSV (PCR) (Not Detect) Entero/Rhino (PCR) (Not Detect) Blood Type O Positive Antibody Screen Positive Antibody Identification Anti-K Point of Care Testing Glucose POC 122 Urine Dip Bedside Urine Glucose Negative Bedside Urine Bilirubin - Negative Bedside Urine Ketone - Negative Urine Specific [place] 1.015 Bedside Urine Occult Blood + Bedside Urine pH 7.5 Bedside Urine Protein +++ 300 Bedside Urine Urobilinogen +/- 1mg Bedside Urine Nitrite - Negative Bedside Urine Leukocytes ++ 125 Esterase Imaging Data Chest x-ray: Radiologist's impression: [address] [address] XRay Report Signed Patient: Kahlil Bailey RMR#: [id number] : 9Acct:[id number] Age/Sex: 67 / MDate of Service: 06/22/18 Loc: ED Accession Number: [id number] Procedure: XR chest 1V Ordering Provider: Ivan West PROCEDURE: XR CHEST 1V INDICATIONS: dyspnea TECHNIQUE: One view of the chest was acquired. COMPARISON: [facility], CT, PE STUDY (CTA CHEST), 01/27/2015, 12:26. [facility], CR, CHEST 1 VIEW, 01/15/2017, 10:54. [facility], CR, CHEST 1 VIEW, 01/17/2017, 11:14. FINDINGS: Surgical changes and devices: None. Lungs and pleura: Bilateral perihilar infiltrates, right greater than left. There is chronic interstitial prominence. Left basilar consolidation. No pleural effusions or pneumothorax. Mediastinum: Mediastinal contours appear normal. Heart size is normal. Bones and chest wall: No suspicious bony lesions. Overlying soft tissues appear unremarkable. IMPRESSION: 1. Bilateral perihilar infiltrates and left basilar consolidation suspicious for pneumonia. 2. There is chronic interstitial prominence. Dictated by: Tonya Cazares M.D. on 06/22/2018 at 14:09 Approved by: Tonya Cazares M.D. on 06/22/2018 at 14:11 ECG Data Interpretation: EKG shows sinus rhythm with no ST elevation or depression. No ectopy. Ventricular rate of 88. Pr interval 129. QRS duration is 68. QTC of 396. MDM Narrative Medical decision making narrative: chest x-ray shows findings of perihilar bilateral pneumonia and also left basilar pneumonia. CBC shows elevated white count of 11 kg. Neutrophils are elevated at 9000. chemistry shows decreased GFR 35.3 and elevated creatinine of 1.9. Troponin was elevated at .06. BNP was elevated at 1150. sinus symptoms presents as pneumonia. Due to patient's history of COPD and increased GFR suspect that the troponin and the BMP are elevated due to this. He was placed on Levaquin IV in the emergency room and also Rocephin. Will hold on using any diuretics at this point due to his decreased GFR and see have his BNP GFR improve with hydration. He is admitted to inpatient services. Dr. szymanski accepted. <Wayne Boothe, - Last Filed: 06/27/18 07:36> Lab Data Lab Results 06/22/18 06/22/18 06/22/18 Range/Units 14:04 14:04 14:04 WBC 11.4 H (4.5-11.0) X10^3/uL RBC 4.91 (4.5-5.9) X10^6/uL Hgb 13.8 (13.5-17.5) g/dL Hct 42.6 (41-53) % MCV 86.8 (80-100) fL MCH 28.0 (26-34) PG MCHC 32.3 (30-36) % RDW 13.7 (11.6-14.8) % Plt Count 276 (150-400) X10^3/uL Neut % (Auto) 81.4 H (50-75) % Lymph % (Auto) 10.0 L (25-40) % Bent % (Auto) 6.7 (3-14) % Eos % (Auto) 1.3 L (2-4) % Baso % (Auto) 0.6 (0-2) % Neut # (Auto) 9300 H (5014-6189) /uL Lymph # (Auto) 1100 (0813-4249) /uL Bent # (Auto) 800 (0-900) /uL Eos # (Auto) 100 (0-450) /uL Baso # (Auto) 100 (0-100) /uL Total Counted Seg Neutrophils % (38-70) % Lymphocytes % (Manual) (25-45) % Monocytes % (Manual) (2-11) % Myelocytes % (-0) % Neutrophils # (Manual) (4867-7543) /uL RBC Morphology D-Dimer 654 H (<230) ng/mL ABG pH (7.35-7.45) ABG pCO2 (35-45) mmHg ABG pO2 (80-100) mmHg ABG HCO3 (22-26) mmol/L ABG Total CO2 (21-31) mmol/L ABG O2 Saturation (95-100) % ABG Base Excess (-2-2) mmol/L FiO2 Sodium 139 (137-145) mmol/L Potassium 4.5 (3.4-5.1) mmol/L Chloride 110 H (98-107) mmol/L Carbon Dioxide 17 L (22-32) mmol/L BUN 60 H (9-20) mg/dL Creatinine 1.90 H (0.66-1.25) mg/dL Estimated GFR 35.3 L (>60) mL/min BUN/Creatinine Ratio 31.6 H (6-22) Glucose 103 (80-110) mg/dL Lactate (0.7-2.1) mmol/L Calcium 8.9 (8.4-10.2) mg/dL Magnesium 2.0 (1.6-2.3) mg/dL Total Bilirubin (0.2-1.3) mg/dL AST (17-59) IU/L ALT (21-72) IU/L Alkaline Phosphatase (38-126) U/L Total Creatine Kinase 46 L (55-170) U/L CK-MB (CK-2) TNP CK-MB (CK-2) Rel Index TNP Troponin I 0.061 H (0.01-0.034) ng/mL B-Natriuretic Peptide 1150 H (<100) Total Protein (6.3-8.2) g/dL Albumin (3.5-5.0) g/dL Globulin (1.7-4.1) g/dL Albumin/Globulin Ratio (1.0-2.8) Procalcitonin (<0.5) ng/mL Urine Color Urine Appearance Urine pH (4.5-8.0) Ur Specific [place] (1.000-1.035) Urine Protein (Negative) Urine Glucose (UA) (Negative) g/dL Urine Ketones (NEGATIVE) Urine Occult Blood (Negative) Urine Nitrate (Negative) Urine Bilirubin (NEGATIVE) Urine Urobilinogen (0.2) E.U./dL Ur Leukocyte Esterase (NEGATIVE) Urine RBC (0-5/HPF) Urine WBC (0-5/HPF) Ur Squamous Epith Cells Calcium Oxalate Crystal (None) Amorphous Sediment Urine Bacteria (None) Urine Mucus (Negative) Ur Culture Indicated? Chlamy pneumoniae PCR (Not Detect) Adenovirus (PCR) (Not Detect) B.parapertussis DNA PCR (Not Detect) Coronavirus OC43 (PCR) (Not Detect) Coronavirus HKU1 (PCR) (Not Detect) Coronavirus 229E (PCR) (Not Detect) Coronavirus NL63 (PCR) (Not Detect) Human Metapneumovir PCR (Not Detect) Influenza Type A (PCR) (Not Detect) Influenza Type B (PCR) (Not Detect) Influenza A & B (PCR) (Negative) M. pneumoniae (PCR) (Not Detect) Parainfluenza 1 (PCR) (Not Detect) Parainfluenza 2 (PCR) (Not Detect) Parainfluenza 3 (PCR) (Not Detect) Parainfluenza 4 (PCR) (Not Detect) RSV (PCR) (Not Detect) Entero/Rhino (PCR) (Not Detect) Blood Type Antibody Screen Antibody Identification 06/22/18 06/22/18 06/22/18 Range/Units 14:04 14:04 15:18 WBC (4.5-11.0) X10^3/uL RBC (4.5-5.9) X10^6/uL Hgb (13.5-17.5) g/dL Hct (41-53) % MCV (80-100) fL MCH (26-34) PG MCHC (30-36) % RDW (11.6-14.8) % Plt Count (150-400) X10^3/uL Neut % (Auto) (50-75) % Lymph % (Auto) (25-40) % Bent % (Auto) (3-14) % Eos % (Auto) (2-4) % Baso % (Auto) (0-2) % Neut # (Auto) (2888-4957) /uL Lymph # (Auto) (3045-3986) /uL Bent # (Auto) (0-900) /uL Eos # (Auto) (0-450) /uL Baso # (Auto) (0-100) /uL Total Counted Seg Neutrophils % (38-70) % Lymphocytes % (Manual) (25-45) % Monocytes % (Manual) (2-11) % Myelocytes % (-0) % Neutrophils # (Manual) (4585-5819) /uL RBC Morphology D-Dimer (<230) ng/mL ABG pH (7.35-7.45) ABG pCO2 (35-45) mmHg ABG pO2 (80-100) mmHg ABG HCO3 (22-26) mmol/L ABG Total CO2 (21-31) mmol/L ABG O2 Saturation (95-100) % ABG Base Excess (-2-2) mmol/L FiO2 Sodium (137-145) mmol/L Potassium (3.4-5.1) mmol/L Chloride (98-107) mmol/L Carbon Dioxide (22-32) mmol/L BUN (9-20) mg/dL Creatinine (0.66-1.25) mg/dL Estimated GFR (>60) mL/min BUN/Creatinine Ratio (6-22) Glucose (80-110) mg/dL Lactate 0.8 (0.7-2.1) mmol/L Calcium (8.4-10.2) mg/dL Magnesium (1.6-2.3) mg/dL Total Bilirubin (0.2-1.3) mg/dL AST (17-59) IU/L ALT (21-72) IU/L Alkaline Phosphatase (38-126) U/L Total Creatine Kinase (55-170) U/L CK-MB (CK-2) CK-MB (CK-2) Rel Index Troponin I (0.01-0.034) ng/mL B-Natriuretic Peptide (<100) Total Protein (6.3-8.2) g/dL Albumin (3.5-5.0) g/dL Globulin (1.7-4.1) g/dL Albumin/Globulin Ratio (1.0-2.8) Procalcitonin < 0.05 (<0.5) ng/mL Urine Color Urine Appearance Urine pH (4.5-8.0) Ur Specific [place] (1.000-1.035) Urine Protein (Negative) Urine Glucose (UA) (Negative) g/dL Urine Ketones (NEGATIVE) Urine Occult Blood (Negative) Urine Nitrate (Negative) Urine Bilirubin (NEGATIVE) Urine Urobilinogen (0.2) E.U./dL Ur Leukocyte Esterase (NEGATIVE) Urine RBC 0-1/hpf D (0-5/HPF) Urine WBC 10-30/hpf H (0-5/HPF) Ur Squamous Epith Cells 0-1 /hpf Calcium Oxalate Crystal (None) Amorphous Sediment 2+ Urine Bacteria Many (>30) H (None) Urine Mucus (Negative) Ur Culture Indicated? Specimen cultured Chlamy pneumoniae PCR (Not Detect) Adenovirus (PCR) (Not Detect) B.parapertussis DNA PCR (Not Detect) Coronavirus OC43 (PCR) (Not Detect) Coronavirus HKU1 (PCR) (Not Detect) Coronavirus 229E (PCR) (Not Detect) Coronavirus NL63 (PCR) (Not Detect) Human Metapneumovir PCR (Not Detect) Influenza Type A (PCR) (Not Detect) Influenza Type B (PCR) (Not Detect) Influenza A & B (PCR) (Negative) M. pneumoniae (PCR) (Not Detect) Parainfluenza 1 (PCR) (Not Detect) Parainfluenza 2 (PCR) (Not Detect) Parainfluenza 3 (PCR) (Not Detect) Parainfluenza 4 (PCR) (Not Detect) RSV (PCR) (Not Detect) Entero/Rhino (PCR) (Not Detect) Blood Type Antibody Screen Antibody Identification 06/22/18 06/22/18 06/22/18 Range/Units 15:40 21:24 21:24 WBC (4.5-11.0) X10^3/uL RBC (4.5-5.9) X10^6/uL Hgb (13.5-17.5) g/dL Hct (41-53) % MCV (80-100) fL MCH (26-34) PG MCHC (30-36) % RDW (11.6-14.8) % Plt Count (150-400) X10^3/uL Neut % (Auto) (50-75) % Lymph % (Auto) (25-40) % Bent % (Auto) (3-14) % Eos % (Auto) (2-4) % Baso % (Auto) (0-2) % Neut # (Auto) (8791-4696) /uL Lymph # (Auto) (9373-0326) /uL Bent # (Auto) (0-900) /uL Eos # (Auto) (0-450) /uL Baso # (Auto) (0-100) /uL Total Counted Seg Neutrophils % (38-70) % Lymphocytes % (Manual) (25-45) % Monocytes % (Manual) (2-11) % Myelocytes % (-0) % Neutrophils # (Manual) (8969-5650) /uL RBC Morphology D-Dimer (<230) ng/mL ABG pH (7.35-7.45) ABG pCO2 (35-45) mmHg ABG pO2 (80-100) mmHg ABG HCO3 (22-26) mmol/L ABG Total CO2 (21-31) mmol/L ABG O2 Saturation (95-100) % ABG Base Excess (-2-2) mmol/L FiO2 Sodium (137-145) mmol/L Potassium (3.4-5.1) mmol/L Chloride (98-107) mmol/L Carbon Dioxide (22-32) mmol/L BUN (9-20) mg/dL Creatinine (0.66-1.25) mg/dL Estimated GFR (>60) mL/min BUN/Creatinine Ratio (6-22) Glucose (80-110) mg/dL Lactate 0.9 (0.7-2.1) mmol/L Calcium (8.4-10.2) mg/dL Magnesium (1.6-2.3) mg/dL Total Bilirubin (0.2-1.3) mg/dL AST (17-59) IU/L ALT (21-72) IU/L Alkaline Phosphatase (38-126) U/L Total Creatine Kinase (55-170) U/L CK-MB (CK-2) CK-MB (CK-2) Rel Index Troponin I 0.075 H (0.01-0.034) ng/mL B-Natriuretic Peptide (<100) Total Protein (6.3-8.2) g/dL Albumin (3.5-5.0) g/dL Globulin (1.7-4.1) g/dL Albumin/Globulin Ratio (1.0-2.8) Procalcitonin (<0.5) ng/mL Urine Color Urine Appearance Urine pH (4.5-8.0) Ur Specific [place] (1.000-1.035) Urine Protein (Negative) Urine Glucose (UA) (Negative) g/dL Urine Ketones (NEGATIVE) Urine Occult Blood (Negative) Urine Nitrate (Negative) Urine Bilirubin (NEGATIVE) Urine Urobilinogen (0.2) E.U./dL Ur Leukocyte Esterase (NEGATIVE) Urine RBC (0-5/HPF) Urine WBC (0-5/HPF) Ur Squamous Epith Cells Calcium Oxalate Crystal (None) Amorphous Sediment Urine Bacteria (None) Urine Mucus (Negative) Ur Culture Indicated? Chlamy pneumoniae PCR (Not Detect) Adenovirus (PCR) (Not Detect) B.parapertussis DNA PCR (Not Detect) Coronavirus OC43 (PCR) (Not Detect) Coronavirus HKU1 (PCR) (Not Detect) Coronavirus 229E (PCR) (Not Detect) Coronavirus NL63 (PCR) (Not Detect) Human Metapneumovir PCR (Not Detect) Influenza Type A (PCR) (Not Detect) Influenza Type B (PCR) (Not Detect) Influenza A & B (PCR) Negative (Negative) M. pneumoniae (PCR) (Not Detect) Parainfluenza 1 (PCR) (Not Detect) Parainfluenza 2 (PCR) (Not Detect) Parainfluenza 3 (PCR) (Not Detect) Parainfluenza 4 (PCR) (Not Detect) RSV (PCR) (Not Detect) Entero/Rhino (PCR) (Not Detect) Blood Type Antibody Screen Antibody Identification 06/22/18 06/22/18 06/22/18 Range/Units 21:27 21:36 23:10 WBC (4.5-11.0) X10^3/uL RBC (4.5-5.9) X10^6/uL Hgb (13.5-17.5) g/dL Hct (41-53) % MCV (80-100) fL MCH (26-34) PG MCHC (30-36) % RDW (11.6-14.8) % Plt Count (150-400) X10^3/uL Neut % (Auto) (50-75) % Lymph % (Auto) (25-40) % Bent % (Auto) (3-14) % Eos % (Auto) (2-4) % Baso % (Auto) (0-2) % Neut # (Auto) (6326-4303) /uL Lymph # (Auto) (9768-1900) /uL Bent # (Auto) (0-900) /uL Eos # (Auto) (0-450) /uL Baso # (Auto) (0-100) /uL Total Counted Seg Neutrophils % (38-70) % Lymphocytes % (Manual) (25-45) % Monocytes % (Manual) (2-11) % Myelocytes % (-0) % Neutrophils # (Manual) (5555-0810) /uL RBC Morphology D-Dimer (<230) ng/mL ABG pH 7.30 L (7.35-7.45) ABG pCO2 30.6 L (35-45) mmHg ABG pO2 71 L (80-100) mmHg ABG HCO3 15 L (22-26) mmol/L ABG Total CO2 16 L (21-31) mmol/L ABG O2 Saturation 93 L (95-100) % ABG Base Excess -11.0 L (-2-2) mmol/L FiO2 21 Sodium (137-145) mmol/L Potassium (3.4-5.1) mmol/L Chloride (98-107) mmol/L Carbon Dioxide (22-32) mmol/L BUN (9-20) mg/dL Creatinine (0.66-1.25) mg/dL Estimated GFR (>60) mL/min BUN/Creatinine Ratio (6-22) Glucose (80-110) mg/dL Lactate (0.7-2.1) mmol/L Calcium (8.4-10.2) mg/dL Magnesium (1.6-2.3) mg/dL Total Bilirubin (0.2-1.3) mg/dL AST (17-59) IU/L ALT (21-72) IU/L Alkaline Phosphatase (38-126) U/L Total Creatine Kinase (55-170) U/L CK-MB (CK-2) CK-MB (CK-2) Rel Index Troponin I (0.01-0.034) ng/mL B-Natriuretic Peptide (<100) Total Protein (6.3-8.2) g/dL Albumin (3.5-5.0) g/dL Globulin (1.7-4.1) g/dL Albumin/Globulin Ratio (1.0-2.8) Procalcitonin (<0.5) ng/mL Urine Color Yellow Urine Appearance Turbid Urine pH 7.5 (4.5-8.0) Ur Specific [place] 1.015 (1.000-1.035) Urine Protein 3+ H (Negative) Urine Glucose (UA) Negative (Negative) g/dL Urine Ketones Negative (NEGATIVE) Urine Occult Blood 1+ H (Negative) Urine Nitrate Positive (Negative) Urine Bilirubin Negative (NEGATIVE) Urine Urobilinogen 0.2 (0.2) E.U./dL Ur Leukocyte Esterase 1+ H (NEGATIVE) Urine RBC 0-1/hpf (0-5/HPF) Urine WBC 30-100/hpf H (0-5/HPF) Ur Squamous Epith Cells 1-5 /hpf Calcium Oxalate Crystal Occasional H (None) Amorphous Sediment Urine Bacteria Many (>30) H (None) Urine Mucus 3+ H (Negative) Ur Culture Indicated? Specimen cultured Chlamy pneumoniae PCR Not detected (Not Detect) Adenovirus (PCR) Not detected (Not Detect) B.parapertussis DNA PCR Not detected (Not Detect) Coronavirus OC43 (PCR) Not detected (Not Detect) Coronavirus HKU1 (PCR) Not detected (Not Detect) Coronavirus 229E (PCR) Not detected (Not Detect) Coronavirus NL63 (PCR) Not detected (Not Detect) Human Metapneumovir PCR Not detected (Not Detect) Influenza Type A (PCR) Not detected (Not Detect) Influenza Type B (PCR) Not detected (Not Detect) Influenza A & B (PCR) (Negative) M. pneumoniae (PCR) Not detected (Not Detect) Parainfluenza 1 (PCR) Not detected (Not Detect) Parainfluenza 2 (PCR) Not detected (Not Detect) Parainfluenza 3 (PCR) Not detected (Not Detect) Parainfluenza 4 (PCR) Not detected (Not Detect) RSV (PCR) Not detected (Not Detect) Entero/Rhino (PCR) Not detected (Not Detect) Blood Type Antibody Screen Antibody Identification 06/23/18 06/23/18 06/23/18 Range/Units 01:58 06:25 06:25 WBC 6.8 (4.5-11.0) X10^3/uL RBC 4.63 (4.5-5.9) X10^6/uL Hgb 13.0 L (13.5-17.5) g/dL Hct 40.5 L (41-53) % MCV 87.4 (80-100) fL MCH 28.0 (26-34) PG MCHC 32.1 (30-36) % RDW 14.0 (11.6-14.8) % Plt Count 259 (150-400) X10^3/uL Neut % (Auto) (50-75) % Lymph % (Auto) (25-40) % Bent % (Auto) (3-14) % Eos % (Auto) (2-4) % Baso % (Auto) (0-2) % Neut # (Auto) (9527-1056) /uL Lymph # (Auto) (1451-9394) /uL Bent # (Auto) (0-900) /uL Eos # (Auto) (0-450) /uL Baso # (Auto) (0-100) /uL Total Counted 100 Seg Neutrophils % 89.0 H (38-70) % Lymphocytes % (Manual) 6.0 L (25-45) % Monocytes % (Manual) 4.0 (2-11) % Myelocytes % 1.0 H (-0) % Neutrophils # (Manual) 6052 H (3625-9658) /uL RBC Morphology Normal morphology D-Dimer (<230) ng/mL ABG pH (7.35-7.45) ABG pCO2 (35-45) mmHg ABG pO2 (80-100) mmHg ABG HCO3 (22-26) mmol/L ABG Total CO2 (21-31) mmol/L ABG O2 Saturation (95-100) % ABG Base Excess (-2-2) mmol/L FiO2 Sodium 140 (137-145) mmol/L Potassium 4.9 (3.4-5.1) mmol/L Chloride 113 H (98-107) mmol/L Carbon Dioxide 16 L (22-32) mmol/L BUN 61 H (9-20) mg/dL Creatinine 2.10 H (0.66-1.25) mg/dL Estimated GFR 31.5 L (>60) mL/min BUN/Creatinine Ratio 29.0 H (6-22) Glucose 109 (80-110) mg/dL Lactate (0.7-2.1) mmol/L Calcium 8.7 (8.4-10.2) mg/dL Magnesium 1.9 (1.6-2.3) mg/dL Total Bilirubin (0.2-1.3) mg/dL AST (17-59) IU/L ALT (21-72) IU/L Alkaline Phosphatase (38-126) U/L Total Creatine Kinase (55-170) U/L CK-MB (CK-2) CK-MB (CK-2) Rel Index Troponin I 0.075 H (0.01-0.034) ng/mL B-Natriuretic Peptide (<100) Total Protein (6.3-8.2) g/dL Albumin (3.5-5.0) g/dL Globulin (1.7-4.1) g/dL Albumin/Globulin Ratio (1.0-2.8) Procalcitonin (<0.5) ng/mL Urine Color Urine Appearance Urine pH (4.5-8.0) Ur Specific [place] (1.000-1.035) Urine Protein (Negative) Urine Glucose (UA) (Negative) g/dL Urine Ketones (NEGATIVE) Urine Occult Blood (Negative) Urine Nitrate (Negative) Urine Bilirubin (NEGATIVE) Urine Urobilinogen (0.2) E.U./dL Ur Leukocyte Esterase (NEGATIVE) Urine RBC (0-5/HPF) Urine WBC (0-5/HPF) Ur Squamous Epith Cells Calcium Oxalate Crystal (None) Amorphous Sediment Urine Bacteria (None) Urine Mucus (Negative) Ur Culture Indicated? Chlamy pneumoniae PCR (Not Detect) Adenovirus (PCR) (Not Detect) B.parapertussis DNA PCR (Not Detect) Coronavirus OC43 (PCR) (Not Detect) Coronavirus HKU1 (PCR) (Not Detect) Coronavirus 229E (PCR) (Not Detect) Coronavirus NL63 (PCR) (Not Detect) Human Metapneumovir PCR (Not Detect) Influenza Type A (PCR) (Not Detect) Influenza Type B (PCR) (Not Detect) Influenza A & B (PCR) (Negative) M. pneumoniae (PCR) (Not Detect) Parainfluenza 1 (PCR) (Not Detect) Parainfluenza 2 (PCR) (Not Detect) Parainfluenza 3 (PCR) (Not Detect) Parainfluenza 4 (PCR) (Not Detect) RSV (PCR) (Not Detect) Entero/Rhino (PCR) (Not Detect) Blood Type Antibody Screen Antibody Identification 06/23/18 06/23/18 06/23/18 Range/Units 06:25 16:09 21:38 WBC (4.5-11.0) X10^3/uL RBC (4.5-5.9) X10^6/uL Hgb (13.5-17.5) g/dL Hct (41-53) % MCV (80-100) fL MCH (26-34) PG MCHC (30-36) % RDW (11.6-14.8) % Plt Count (150-400) X10^3/uL Neut % (Auto) (50-75) % Lymph % (Auto) (25-40) % Bent % (Auto) (3-14) % Eos % (Auto) (2-4) % Baso % (Auto) (0-2) % Neut # (Auto) (9047-6446) /uL Lymph # (Auto) (3133-0350) /uL Bent # (Auto) (0-900) /uL Eos # (Auto) (0-450) /uL Baso # (Auto) (0-100) /uL Total Counted Seg Neutrophils % (38-70) % Lymphocytes % (Manual) (25-45) % Monocytes % (Manual) (2-11) % Myelocytes % (-0) % Neutrophils # (Manual) (7151-0657) /uL RBC Morphology D-Dimer (<230) ng/mL ABG pH 7.22 L* (7.35-7.45) ABG pCO2 38.7 (35-45) mmHg ABG pO2 59 L (80-100) mmHg ABG HCO3 16 L (22-26) mmol/L ABG Total CO2 17 L (21-31) mmol/L ABG O2 Saturation 85 L (95-100) % ABG Base Excess -12.0 L (-2-2) mmol/L FiO2 0.21 Sodium (137-145) mmol/L Potassium (3.4-5.1) mmol/L Chloride (98-107) mmol/L Carbon Dioxide (22-32) mmol/L BUN (9-20) mg/dL Creatinine 1.90 H (0.66-1.25) mg/dL Estimated GFR 35.3 L (>60) mL/min BUN/Creatinine Ratio (6-22) Glucose (80-110) mg/dL Lactate (0.7-2.1) mmol/L Calcium (8.4-10.2) mg/dL Magnesium (1.6-2.3) mg/dL Total Bilirubin (0.2-1.3) mg/dL AST (17-59) IU/L ALT (21-72) IU/L Alkaline Phosphatase (38-126) U/L Total Creatine Kinase (55-170) U/L CK-MB (CK-2) CK-MB (CK-2) Rel Index Troponin I 0.074 H (0.01-0.034) ng/mL B-Natriuretic Peptide (<100) Total Protein (6.3-8.2) g/dL Albumin (3.5-5.0) g/dL Globulin (1.7-4.1) g/dL Albumin/Globulin Ratio (1.0-2.8) Procalcitonin (<0.5) ng/mL Urine Color Urine Appearance Urine pH (4.5-8.0) Ur Specific [place] (1.000-1.035) Urine Protein (Negative) Urine Glucose (UA) (Negative) g/dL Urine Ketones (NEGATIVE) Urine Occult Blood (Negative) Urine Nitrate (Negative) Urine Bilirubin (NEGATIVE) Urine Urobilinogen (0.2) E.U./dL Ur Leukocyte Esterase (NEGATIVE) Urine RBC (0-5/HPF) Urine WBC (0-5/HPF) Ur Squamous Epith Cells Calcium Oxalate Crystal (None) Amorphous Sediment Urine Bacteria (None) Urine Mucus (Negative) Ur Culture Indicated? Chlamy pneumoniae PCR (Not Detect) Adenovirus (PCR) (Not Detect) B.parapertussis DNA PCR (Not Detect) Coronavirus OC43 (PCR) (Not Detect) Coronavirus HKU1 (PCR) (Not Detect) Coronavirus 229E (PCR) (Not Detect) Coronavirus NL63 (PCR) (Not Detect) Human Metapneumovir PCR (Not Detect) Influenza Type A (PCR) (Not Detect) Influenza Type B (PCR) (Not Detect) Influenza A & B (PCR) (Negative) M. pneumoniae (PCR) (Not Detect) Parainfluenza 1 (PCR) (Not Detect) Parainfluenza 2 (PCR) (Not Detect) Parainfluenza 3 (PCR) (Not Detect) Parainfluenza 4 (PCR) (Not Detect) RSV (PCR) (Not Detect) Entero/Rhino (PCR) (Not Detect) Blood Type Antibody Screen Antibody Identification 06/23/18 06/23/18 06/23/18 Range/Units 21:41 21:41 21:41 WBC 8.2 (4.5-11.0) X10^3/uL RBC 4.55 (4.5-5.9) X10^6/uL Hgb 12.8 L (13.5-17.5) g/dL Hct 40.1 L (41-53) % MCV 88.2 (80-100) fL MCH 28.1 (26-34) PG MCHC 31.9 (30-36) % RDW 14.2 (11.6-14.8) % Plt Count 267 (150-400) X10^3/uL Neut % (Auto) 92.3 H (50-75) % Lymph % (Auto) 5.8 L (25-40) % Bent % (Auto) 1.8 L (3-14) % Eos % (Auto) 0.0 L (2-4) % Baso % (Auto) 0.1 (0-2) % Neut # (Auto) 7600 H (9194-8742) /uL Lymph # (Auto) 500 L (8993-4285) /uL Bent # (Auto) 200 (0-900) /uL Eos # (Auto) 0 (0-450) /uL Baso # (Auto) 0 (0-100) /uL Total Counted Seg Neutrophils % (38-70) % Lymphocytes % (Manual) (25-45) % Monocytes % (Manual) (2-11) % Myelocytes % (-0) % Neutrophils # (Manual) (2341-5124) /uL RBC Morphology D-Dimer (<230) ng/mL ABG pH (7.35-7.45) ABG pCO2 (35-45) mmHg ABG pO2 (80-100) mmHg ABG HCO3 (22-26) mmol/L ABG Total CO2 (21-31) mmol/L ABG O2 Saturation (95-100) % ABG Base Excess (-2-2) mmol/L FiO2 Sodium 140 (137-145) mmol/L Potassium 5.2 H (3.4-5.1) mmol/L Chloride 112 H (98-107) mmol/L Carbon Dioxide 17 L (22-32) mmol/L BUN 73 H (9-20) mg/dL Creatinine 2.40 H (0.66-1.25) mg/dL Estimated GFR 27.0 L (>60) mL/min BUN/Creatinine Ratio 30.4 H (6-22) Glucose 138 H (80-110) mg/dL Lactate (0.7-2.1) mmol/L Calcium 8.8 (8.4-10.2) mg/dL Magnesium (1.6-2.3) mg/dL Total Bilirubin 0.3 (0.2-1.3) mg/dL AST 39 (17-59) IU/L ALT 45 (21-72) IU/L Alkaline Phosphatase 55 (38-126) U/L Total Creatine Kinase (55-170) U/L CK-MB (CK-2) CK-MB (CK-2) Rel Index Troponin I 0.205 H* (0.01-0.034) ng/mL B-Natriuretic Peptide (<100) Total Protein 6.2 L (6.3-8.2) g/dL Albumin 3.2 L (3.5-5.0) g/dL Globulin 3.0 (1.7-4.1) g/dL Albumin/Globulin Ratio 1.1 (1.0-2.8) Procalcitonin (<0.5) ng/mL Urine Color Urine Appearance Urine pH (4.5-8.0) Ur Specific [place] (1.000-1.035) Urine Protein (Negative) Urine Glucose (UA) (Negative) g/dL Urine Ketones (NEGATIVE) Urine Occult Blood (Negative) Urine Nitrate (Negative) Urine Bilirubin (NEGATIVE) Urine Urobilinogen (0.2) E.U./dL Ur Leukocyte Esterase (NEGATIVE) Urine RBC (0-5/HPF) Urine WBC (0-5/HPF) Ur Squamous Epith Cells Calcium Oxalate Crystal (None) Amorphous Sediment Urine Bacteria (None) Urine Mucus (Negative) Ur Culture Indicated? Chlamy pneumoniae PCR (Not Detect) Adenovirus (PCR) (Not Detect) B.parapertussis DNA PCR (Not Detect) Coronavirus OC43 (PCR) (Not Detect) Coronavirus HKU1 (PCR) (Not Detect) Coronavirus 229E (PCR) (Not Detect) Coronavirus NL63 (PCR) (Not Detect) Human Metapneumovir PCR (Not Detect) Influenza Type A (PCR) (Not Detect) Influenza Type B (PCR) (Not Detect) Influenza A & B (PCR) (Negative) M. pneumoniae (PCR) (Not Detect) Parainfluenza 1 (PCR) (Not Detect) Parainfluenza 2 (PCR) (Not Detect) Parainfluenza 3 (PCR) (Not Detect) Parainfluenza 4 (PCR) (Not Detect) RSV (PCR) (Not Detect) Entero/Rhino (PCR) (Not Detect) Blood Type Antibody Screen Antibody Identification 06/23/18 06/23/18 Range/Units 21:41 22:57 WBC (4.5-11.0) X10^3/uL RBC (4.5-5.9) X10^6/uL Hgb (13.5-17.5) g/dL Hct (41-53) % MCV (80-100) fL MCH (26-34) PG MCHC (30-36) % RDW (11.6-14.8) % Plt Count (150-400) X10^3/uL Neut % (Auto) (50-75) % Lymph % (Auto) (25-40) % Bent % (Auto) (3-14) % Eos % (Auto) (2-4) % Baso % (Auto) (0-2) % Neut # (Auto) (9088-2458) /uL Lymph # (Auto) (4688-0490) /uL Bent # (Auto) (0-900) /uL Eos # (Auto) (0-450) /uL Baso # (Auto) (0-100) /uL Total Counted Seg Neutrophils % (38-70) % Lymphocytes % (Manual) (25-45) % Monocytes % (Manual) (2-11) % Myelocytes % (-0) % Neutrophils # (Manual) (1212-5188) /uL RBC Morphology D-Dimer (<230) ng/mL ABG pH 7.25 L* (7.35-7.45) ABG pCO2 36.0 (35-45) mmHg ABG pO2 118 H (80-100) mmHg ABG HCO3 16 L (22-26) mmol/L ABG Total CO2 17 L (21-31) mmol/L ABG O2 Saturation 98 (95-100) % ABG Base Excess -12.0 L (-2-2) mmol/L FiO2 0.35 Sodium (137-145) mmol/L Potassium (3.4-5.1) mmol/L Chloride (98-107) mmol/L Carbon Dioxide (22-32) mmol/L BUN (9-20) mg/dL Creatinine (0.66-1.25) mg/dL Estimated GFR (>60) mL/min BUN/Creatinine Ratio (6-22) Glucose (80-110) mg/dL Lactate (0.7-2.1) mmol/L Calcium (8.4-10.2) mg/dL Magnesium (1.6-2.3) mg/dL Total Bilirubin (0.2-1.3) mg/dL AST (17-59) IU/L ALT (21-72) IU/L Alkaline Phosphatase (38-126) U/L Total Creatine Kinase (55-170) U/L CK-MB (CK-2) CK-MB (CK-2) Rel Index Troponin I (0.01-0.034) ng/mL B-Natriuretic Peptide (<100) Total Protein (6.3-8.2) g/dL Albumin (3.5-5.0) g/dL Globulin (1.7-4.1) g/dL Albumin/Globulin Ratio (1.0-2.8) Procalcitonin (<0.5) ng/mL Urine Color Urine Appearance Urine pH (4.5-8.0) Ur Specific [place] (1.000-1.035) Urine Protein (Negative) Urine Glucose (UA) (Negative) g/dL Urine Ketones (NEGATIVE) Urine Occult Blood (Negative) Urine Nitrate (Negative) Urine Bilirubin (NEGATIVE) Urine Urobilinogen (0.2) E.U./dL Ur Leukocyte Esterase (NEGATIVE) Urine RBC (0-5/HPF) Urine WBC (0-5/HPF) Ur Squamous Epith Cells Calcium Oxalate Crystal (None) Amorphous Sediment Urine Bacteria (None) Urine Mucus (Negative) Ur Culture Indicated? Chlamy pneumoniae PCR (Not Detect) Adenovirus (PCR) (Not Detect) B.parapertussis DNA PCR (Not Detect) Coronavirus OC43 (PCR) (Not Detect) Coronavirus HKU1 (PCR) (Not Detect) Coronavirus 229E (PCR) (Not Detect) Coronavirus NL63 (PCR) (Not Detect) Human Metapneumovir PCR (Not Detect) Influenza Type A (PCR) (Not Detect) Influenza Type B (PCR) (Not Detect) Influenza A & B (PCR) (Negative) M. pneumoniae (PCR) (Not Detect) Parainfluenza 1 (PCR) (Not Detect) Parainfluenza 2 (PCR) (Not Detect) Parainfluenza 3 (PCR) (Not Detect) Parainfluenza 4 (PCR) (Not Detect) RSV (PCR) (Not Detect) Entero/Rhino (PCR) (Not Detect) Blood Type O Positive Antibody Screen Positive Antibody Identification Anti-K Point of Care Testing Glucose POC 122 Urine Dip Bedside Urine Glucose Negative Bedside Urine Bilirubin - Negative Bedside Urine Ketone - Negative Urine Specific [place] 1.015 Bedside Urine Occult Blood + Bedside Urine pH 7.5 Bedside Urine Protein +++ 300 Bedside Urine Urobilinogen +/- 1mg Bedside Urine Nitrite - Negative Bedside Urine Leukocytes ++ 125 Esterase Discharge Plan Departure Patient Disposition: Admitted As Inpatient Clinical Impression: Pneumonia Qualifiers: Pneumonia type: due to unspecified organism Laterality: bilateral Lung location: lower lobe of lung Qualified Code(s): J18.1 - Lobar pneumonia, unspecified organism Discharge Date/Time: 06/22/18 18:35 Interventions: ED Discharge Assessment Last Done: 06/22/18 18:33 Admit Date/Time: 06/23/18 11:02 Admit Provider: Rubi Szymanski <Wayne Boothe DO - Last Filed: 06/27/18 07:36> Cosign ED Attending Terry Attestation: I was available for consultation during this patient's emergency department encounter
--- NOTE | 2018-06-22 13:41 | DI.RAD.S_ITS ---
PROCEDURE: XR CHEST 1V INDICATIONS: dyspnea TECHNIQUE: One view of the chest was acquired. COMPARISON: [facility], CT, PE STUDY (CTA CHEST), 01/27/2015, 12:26. [facility], CR, CHEST 1 VIEW, 01/15/2017, 10:54. [facility], CR, CHEST 1 VIEW, 01/17/2017, 11:14. FINDINGS: Surgical changes and devices: None. Lungs and pleura: Bilateral perihilar infiltrates, right greater than left. There is chronic interstitial prominence. Left basilar consolidation. No pleural effusions or pneumothorax. Mediastinum: Mediastinal contours appear normal. Heart size is normal. Bones and chest wall: No suspicious bony lesions. Overlying soft tissues appear unremarkable. IMPRESSION: 1. Bilateral perihilar infiltrates and left basilar consolidation suspicious for pneumonia. 2. There is chronic interstitial prominence. Dictated by: Tonya Cazares M.D. on 06/22/2018 at 14:09 Approved by: Tonya Cazares M.D. on 06/22/2018 at 14:11
[2018-06-22] MEDS: ALBUTEROL/IPRATROPIUM 3 ML AMPUL INH (13:44)
[2018-06-22] MEDS: methylPREDNISolone 125 MG/2 ML VIAL IV (13:49)
[2018-06-22] MEDS: SODIUM CHLORIDE 0.9% 1,000 ML 1000 ML IV ×2 (13:49→15:58)
[2018-06-22 14:18] LABS: Add Manual Diff / Slide Review NO; Basophils Absolute Auto 100 /uL (0-100); Basophils Percent Auto 0.6 % (0-2); Eosinophils Absolute Auto 100 /uL (0-450); Eosinophils Percent Auto 1.3 % (2-4); Hematocrit 42.6 % (41-53); Hemoglobin 13.8 g/dL (13.5-17.5); Lymphocytes Absolute Auto 1100 /uL (1100-4500); Mean Corpuscular HGB Conc 32.3 % (30-36); Mean Corpuscular Volume 86.8 fL (80-100); Monocytes Absolute Auto 800 /uL (0-900); Monocytes Percent Auto 6.7 % (3-14); Neutrophils Absolute Auto 9300 /uL (1500-7000); Neutrophils Percent Auto 81.4 % (50-75); Platelet Count 276 X10^3/uL (150-400); Red Blood Cell Count 4.91 X10^6/uL (4.5-5.9); Red Cell Distribution Width 13.7 % (11.6-14.8); White Blood Cell Count 11.4 X10^3/uL (4.5-11.0)
--- NOTE | 2018-06-22 14:18 | PC.NURSE ---
Upon admission to ED, Cleaned patient with assistance of caregiver. Pt had soft stools but does not appear to have diarrhea as caregiver states. She states stool has been just like this. Report of low BP however here 169/98. Patient appears dirty and unkept. Patient has large area of redness coccyx that does not mony. Covered pressure sore on right buttox. Redness on scrotum. Tobacco found in scrotum as well. Patient has limited movement of arms. Cannot move legs. Pt is wheelchair bound. Caregiver and two brothers are currently at bedside.
[2018-06-22 14:24] LABS: D Dimer 654 ng/mL (<230)
[2018-06-22 14:35] LABS: BUN Creatinine Ratio 31.6 (6-22); Blood Urea Nitrogen 60 mg/dL (9-20); Calcium 8.9 mg/dL (8.4-10.2); Carbon Dioxide 17 mmol/L (22-32); Chloride 110 mmol/L (98-107); Creatine Kinase 46 U/L (55-170); Estimated Glomerular Filt Rate 35.3 mL/min (>60); Glucose 103 mg/dL (80-110); HEMOLYSIS < 15 (0-50); Lactate (Lactic Acid) 0.8 mmol/L (0.7-2.1); Potassium 4.5 mmol/L (3.4-5.1); Sodium 139 mmol/L (137-145)
[2018-06-22 14:46] LABS: Troponin I 0.061 ng/mL (0.01-0.034)
[2018-06-22 14:52] LABS: Procalcitonin < 0.05 ng/mL (<0.5)
[2018-06-22 15:13] LABS: B Type Natriuretic Peptide 1150 (<100)
[2018-06-22 15:49] LABS: Amorphous Sediment Urine 2+; Bacteria Urine Many (>30); Culture Indicated Urine Specimen Cultured; RBC Urine 0-1/HPF (0-5/HPF); Squamous Epithelial Cell Urine 0-1 /HPF; WBC Urine 10-30/HPF (0-5/HPF)
[2018-06-22] MEDS: levoFLOXacin 750 MG/150 ML PIGGYBACK 100 MG IV (15:58)
[2018-06-22 16:00] LABS: Influenza A and B by PCR Rapid Negative (Negative)
--- NOTE | 2018-06-22 17:20 | ED_ITS ---
HPI - URI/Sore Throat <JANI Terry - Last Filed: 06/22/18 21:37> General Chief Complaint: Upper Respiratory Symptoms Stated Complaint: REOCCURING PNUMONIA Time Seen by Provider: 06/22/18 13:00 Source: patient and other Mode of arrival: wheelchair Limitations: no limitations History of Present Illness HPI Narrative: 67-year-old male with history of paraplegia and is a everyday smoker here for complaint of having cough and and malaise over the past couple of days. He is concerned that he is starting to have pneumonia. He reports having a productive cough as well. Positive p.o. intake. He states he feels he may have had a fever over the past couple of days although has been checked. Positive chills. He has had positive p.o. intake although decreased appetite. No chest pain. No flank pain. He states that he had pneumonia in May and was treated with Levaquin. He reports that he did not complete the Levaquin treatment as I gave him diarrhea. Related Data Allergies Allergy/AdvReac Type Severity Reaction Status Date / Time No Known Drug Allergies Allergy Unverified 06/22/18 12:12 Review of Systems <JANI Terry - Last Filed: 06/22/18 21:37> Constitutional Reports chills, Reports fever(s), Denies lethargy and Denies weakness Eyes Denies change in vision, Denies eye discharge, Denies irritation and Denies loss of vision ENT Ears, Nose, Mouth, and Throat: Denies change in voice, Denies neck pain, Denies sore throat and Denies throat swelling Cardiovascular Denies chest pain, Denies irregular heart rhythm, Denies lightheadedness, Denies palpitations and Denies orthopnea Respiratory Reports cough and Denies wheezing Gastrointestinal Gastrointestinal: Denies abdominal pain, Denies change in bowel habits, Denies diarrhea, Denies nausea and Denies vomiting Genitourinary Denies hematuria, Denies flank pain, Denies urinary incontinence and Denies urinary urgency Musculoskeletal Denies neck pain Integumentary/Breasts Denies pruritus, Denies erythema, Denies rash and Denies wounds Neurologic Denies loss of vision and Denies weakness Endocrine Denies palpitations Allergic/Immunologic Denies urticaria, Denies throat swelling and Denies wheezing PFSH <JANI Terry - Last Filed: 06/22/18 21:37> Medical History Aortic stenosis (Chronic Unknown) COPD (chronic obstructive pulmonary disease) (Chronic Unknown) Erectile dysfunction (Chronic Unknown) Neurogenic bladder (Chronic Unknown) PAD (peripheral artery disease) (Chronic Unknown) Paraplegia (Chronic ~1969) Suprapubic catheter (Chronic Unknown) Surgical History History of ankle surgery (Resolved Unknown) History of bladder stone (Resolved ~09/2014) History of bladder surgery (Resolved Unknown) History of open reduction and internal fixation (ORIF) procedure (Resolved Unknown) History of pressure ulcer (Resolved Unknown) Hx of cataract surgery (Resolved Unknown) Family History Brother Diabetes mellitus Father Skin cancer Mother Diabetes mellitus Social History household members: family Smoking Status: Current every day smoker alcohol intake: current substance use type: marijuana Family History Brother Diabetes mellitus Father Skin cancer Mother Diabetes mellitus Social History household members: family Smoking Status: Current every day smoker alcohol intake: current substance use type: marijuana Exam <JANI Terry - Last Filed: 06/22/18 21:37> Initial Vital Signs Initial Vital Signs: Vital Signs Temperature 98.3 F 06/22/18 12:07 Pulse Rate 78 06/22/18 12:07 Respiratory Rate 20 06/22/18 12:07 Blood Pressure 176/88 H 06/22/18 12:07 Pulse Oximetry 93 06/22/18 12:07 Const General: cooperative and well developed Nutritional Appearance: well nourished Orientation: alert, awake, oriented x3 and not confused HENMT Mouth: oral mucosae normal and moist mucous membranes Eyes Conjunctivae: conjunctivae normal Sclera: sclerae normal Pupils: PERRL EOM: EOM intact bilaterally Resp Effort & Inspection: normal respiratory effort, able to speak in complete sentences, no respiratory distress and no use of accessory muscles Auscultation: clear to auscultation bilaterally, rales bilaterally, no rhonchi and no wheezes Cardio Rate: regular rate Rhythm: regular rhythm Heart Sounds: no click, no gallops, no murmurs and no rubs Pulses: normal peripheral pulses GI Inspection: non-distended Palpation: soft, no hepatosplenomegaly, No guarding, No pulsatile mass and No tender Auscultation: normal bowel sounds Skin General: no rashes or lesions noted, No jaundice and No petechiae Neuro General: alert and oriented x3 Speech: speech normal <Wayne Boothe DO - Last Filed: 06/27/18 07:36> Initial Vital Signs Initial Vital Signs: Vital Signs Temperature 98.3 F 06/22/18 12:07 Pulse Rate 78 06/22/18 12:07 Respiratory Rate 20 06/22/18 12:07 Blood Pressure 176/88 H 06/22/18 12:07 Pulse Oximetry 93 06/22/18 12:07 Course <JANI Terry - Last Filed: 06/22/18 21:37> Orders Ordered: Discontinued Medications Albuterol/Ipratropium (Duoneb) 3 ml INH NOW ONE Stop: 06/22/18 13:41 Last Admin: 06/22/18 13:44 Dose: 3 ml Albuterol/Ipratropium (Duoneb) 3 ml INH RTQ4HR PRN PRN Reason: Bronchospasm Last Admin: 06/23/18 09:05 Dose: 3 ml Furosemide (Lasix) 20 mg IV NOW ONE Stop: 06/23/18 15:45 Last Admin: 06/23/18 16:05 Dose: 20 mg Gabapentin (Neurontin) 200 mg PO NOW ONE Stop: 06/22/18 21:30 Last Admin: 06/22/18 22:30 Dose: 200 mg Gabapentin (Neurontin) 400 mg PO TID [facility] Last Admin: 06/23/18 21:10 Dose: 400 mg Heparin Sodium (Porcine) (Heparin) 5,000 unit SUBCUT BID [facility] Last Admin: 06/23/18 21:10 Dose: 5,000 unit Admin: 06/23/18 09:53 Dose: 5,000 unit Sodium Chloride (Normal Saline 0.9%) 1,000 mls @ 1,000 mls/hr IV BOLUS ONE Stop: 06/22/18 14:39 Last Infusion: 06/22/18 15:36 Dose: 0 mls/hr Admin: 06/22/18 13:49 Dose: 1,000 mls/hr Levofloxacin (Levaquin) 750 mg in 150 mls @ 100 mls/hr IV NOW ONE Stop: 06/22/18 17:09 Last Infusion: 06/22/18 18:32 Dose: 100 mls/hr Admin: 06/22/18 15:58 Dose: 100 mls/hr Sodium Chloride (Normal Saline 0.9%) 1,000 mls @ 1,000 mls/hr IV BOLUS ONE Stop: 06/22/18 16:39 Last Infusion: 06/22/18 18:33 Dose: 1,000 mls/hr Admin: 06/22/18 15:58 Dose: 1,000 mls/hr Ceftriaxone Sodium/Dextrose (Rocephin) 1 gm in 50 mls @ 100 mls/hr IV NOW ONE Stop: 06/22/18 18:25 Last Admin: 06/22/18 19:17 Dose: 100 mls/hr Sodium Chloride (Normal Saline 0.9%) 1,000 mls @ 80 mls/hr IV CONT YENI Last Admin: 06/23/18 12:44 Dose: 80 mls/hr Infusion: 06/23/18 10:56 Dose: 80 mls/hr Admin: 06/22/18 22:26 Dose: 80 mls/hr Levofloxacin (Levaquin) 750 mg in 150 mls @ 100 mls/hr IV Q24H YENI Last Infusion: 06/23/18 11:30 Dose: 0 mls/hr Admin: 06/23/18 09:53 Dose: 100 mls/hr Heparin Sodium/Dextrose (Heparin Drip) 25,000 unit in 500 mls @ 21.06 mls/hr IV CONT YENI; Protocol Last Admin: 06/23/18 23:16 Dose: Not Given Piperacillin/Tazobactam/Dextrose (Zosyn) 3.375 gm in 50 mls @ 100 mls/hr IV Q6H YENI Last Admin: 06/23/18 23:09 Dose: 100 mls/hr Lactobacillus Acidophilus (Bacid Caplet) 1 each PO BIDWM YENI Last Admin: 06/23/18 17:21 Dose: 1 each Admin: 02/22/19 12:46 Dose: 1 each Lorazepam (Ativan) 0.25 mg IV Q4HR PRN PRN Reason: Anxiety Methylprednisolone (Solu-Medrol 125 Mg Vial) 125 mg IV NOW ONE Stop: 06/22/18 13:41 Last Admin: 06/22/18 13:49 Dose: 125 mg Morphine Sulfate (Morphine) 1 mg IV Q4HR PRN PRN Reason: Pain, Moderate (4-6) Last Admin: 06/23/18 20:19 Dose: 1 mg Admin: 06/23/18 16:14 Dose: 1 mg Nicotine (Nicoderm) 21 mg TOP DAILY [facility] Last Admin: 06/23/18 09:53 Dose: Not Given Nifedipine (Nifedipine) 10 mg PO Q20MIN [facility] Stop: 06/25/18 22:01 Last Admin: 06/23/18 11:32 Dose: Not Given Nifedipine (Nifedipine) 10 mg PO Q20MIN [facility] Stop: 06/24/18 22:01 Last Admin: 06/23/18 20:04 Dose: 10 mg Admin: 06/22/18 23:46 Dose: 10 mg Admin: 06/22/18 22:33 Dose: Not Given Prednisone (Deltasone) 40 mg PO DAILY [facility] Stop: 06/27/18 09:01 Last Admin: 06/23/18 12:46 Dose: 40 mg Vital Signs - 8 hr 06/22/18 13:44 06/22/18 14:55 06/22/18 15:30 Temperature Pulse Rate 97 H 91 H 95 H Respiratory Rate 24 21 24 Blood Pressure Blood Pressure [Right Arm] 172/120 H 184/101 H Pulse Oximetry 94 96 95 06/22/18 16:39 06/22/18 18:30 06/22/18 18:33 Temperature 98.1 F Pulse Rate 71 85 80 Respiratory Rate 25 H 19 21 Blood Pressure 171/112 H 174/93 H Blood Pressure [Right Arm] 171/104 H Pulse Oximetry 97 96 06/22/18 20:11 Temperature 97.9 F Pulse Rate 82 Respiratory Rate 20 Blood Pressure 187/75 H Blood Pressure [Right Arm] Pulse Oximetry 100 <Wayne Boothe DO - Last Filed: 06/27/18 07:36> Orders Ordered: Discontinued Medications Albuterol/Ipratropium (Duoneb) 3 ml INH NOW ONE Stop: 06/22/18 13:41 Last Admin: 06/22/18 13:44 Dose: 3 ml Albuterol/Ipratropium (Duoneb) 3 ml INH RTQ4HR PRN PRN Reason: Bronchospasm Last Admin: 06/23/18 09:05 Dose: 3 ml Furosemide (Lasix) 20 mg IV NOW ONE Stop: 06/23/18 15:45 Last Admin: 06/23/18 16:05 Dose: 20 mg Gabapentin (Neurontin) 200 mg PO NOW ONE Stop: 06/22/18 21:30 Last Admin: 06/22/18 22:30 Dose: 200 mg Gabapentin (Neurontin) 400 mg PO TID YENI Last Admin: 06/23/18 21:10 Dose: 400 mg Heparin Sodium (Porcine) (Heparin) 5,000 unit SUBCUT BID [facility] Last Admin: 06/23/18 21:10 Dose: 5,000 unit Admin: 06/23/18 09:53 Dose: 5,000 unit Sodium Chloride (Normal Saline 0.9%) 1,000 mls @ 1,000 mls/hr IV BOLUS ONE Stop: 06/22/18 14:39 Last Infusion: 06/22/18 15:36 Dose: 0 mls/hr Admin: 06/22/18 13:49 Dose: 1,000 mls/hr Levofloxacin (Levaquin) 750 mg in 150 mls @ 100 mls/hr IV NOW ONE Stop: 06/22/18 17:09 Last Infusion: 06/22/18 18:32 Dose: 100 mls/hr Admin: 06/22/18 15:58 Dose: 100 mls/hr Sodium Chloride (Normal Saline 0.9%) 1,000 mls @ 1,000 mls/hr IV BOLUS ONE Stop: 06/22/18 16:39 Last Infusion: 06/22/18 18:33 Dose: 1,000 mls/hr Admin: 06/22/18 15:58 Dose: 1,000 mls/hr Ceftriaxone Sodium/Dextrose (Rocephin) 1 gm in 50 mls @ 100 mls/hr IV NOW ONE Stop: 06/22/18 18:25 Last Admin: 06/22/18 19:17 Dose: 100 mls/hr Sodium Chloride (Normal Saline 0.9%) 1,000 mls @ 80 mls/hr IV CONT [facility] Last Admin: 06/23/18 12:44 Dose: 80 mls/hr Infusion: 06/23/18 10:56 Dose: 80 mls/hr Admin: 06/22/18 22:26 Dose: 80 mls/hr Levofloxacin (Levaquin) 750 mg in 150 mls @ 100 mls/hr IV Q24H [facility] Last Infusion: 06/23/18 11:30 Dose: 0 mls/hr Admin: 06/23/18 09:53 Dose: 100 mls/hr Heparin Sodium/Dextrose (Heparin Drip) 25,000 unit in 500 mls @ 21.06 mls/hr IV CONT YENI; Protocol Last Admin: 06/23/18 23:16 Dose: Not Given Piperacillin/Tazobactam/Dextrose (Zosyn) 3.375 gm in 50 mls @ 100 mls/hr IV Q6H [facility] Last Admin: 06/23/18 23:09 Dose: 100 mls/hr Lactobacillus Acidophilus (Bacid Caplet) 1 each PO BIDWM [facility] Last Admin: 06/23/18 17:21 Dose: 1 each Admin: 06/23/18 12:46 Dose: 1 each Lorazepam (Ativan) 0.25 mg IV Q4HR PRN PRN Reason: Anxiety Methylprednisolone (Solu-Medrol 125 Mg Vial) 125 mg IV NOW ONE Stop: 06/22/18 13:41 Last Admin: 06/22/18 13:49 Dose: 125 mg Morphine Sulfate (Morphine) 1 mg IV Q4HR PRN PRN Reason: Pain, Moderate (4-6) Last Admin: 06/23/18 20:19 Dose: 1 mg Admin: 06/23/18 16:14 Dose: 1 mg Nicotine (Nicoderm) 21 mg TOP DAILY [facility] Last Admin: 06/23/18 09:53 Dose: Not Given Nifedipine (Nifedipine) 10 mg PO Q20MIN [facility] Stop: 06/25/18 22:01 Last Admin: 06/23/18 11:32 Dose: Not Given Nifedipine (Nifedipine) 10 mg PO Q20MIN [facility] Stop: 06/24/18 22:01 Last Admin: 06/23/18 20:04 Dose: 10 mg Admin: 06/22/18 23:46 Dose: 10 mg Admin: 06/22/18 22:33 Dose: Not Given Prednisone (Deltasone) 40 mg PO DAILY YENI Stop: 06/27/18 09:01 Last Admin: 06/23/18 12:46 Dose: 40 mg Vital Signs - 8 hr 06/22/18 13:44 06/22/18 14:55 06/22/18 15:30 Temperature Pulse Rate 97 H 91 H 95 H Respiratory Rate 24 21 24 Blood Pressure Blood Pressure [Right Arm] 172/120 H 184/101 H Pulse Oximetry 94 96 95 06/22/18 16:39 06/22/18 18:30 06/22/18 18:33 Temperature 98.1 F Pulse Rate 71 85 80 Respiratory Rate 25 H 19 21 Blood Pressure 171/112 H 174/93 H Blood Pressure [Right Arm] 171/104 H Pulse Oximetry 97 96 06/22/18 20:11 Temperature 97.9 F Pulse Rate 82 Respiratory Rate 20 Blood Pressure 187/75 H Blood Pressure [Right Arm] Pulse Oximetry 100 MDM - URI/Sore Throat <JANI Terry - Last Filed: 06/22/18 21:37> Lab Data Result diagrams: 06/23/18 21:41 06/23/18 21:41 Lab Results 06/22/18 06/22/18 06/22/18 Range/Units 14:04 14:04 14:04 WBC 11.4 H (4.5-11.0) X10^3/uL RBC 4.91 (4.5-5.9) X10^6/uL Hgb 13.8 (13.5-17.5) g/dL Hct 42.6 (41-53) % MCV 86.8 (80-100) fL MCH 28.0 (26-34) PG MCHC 32.3 (30-36) % RDW 13.7 (11.6-14.8) % Plt Count 276 (150-400) X10^3/uL Neut % (Auto) 81.4 H (50-75) % Lymph % (Auto) 10.0 L (25-40) % [place] % (Auto) 6.7 (3-14) % Eos % (Auto) 1.3 L (2-4) % Baso % (Auto) 0.6 (0-2) % Neut # (Auto) 9300 H (4662-8291) /uL Lymph # (Auto) 1100 (1019-9167) /uL [place] # (Auto) 800 (0-900) /uL Eos # (Auto) 100 (0-450) /uL Baso # (Auto) 100 (0-100) /uL Total Counted Seg Neutrophils % (38-70) % Lymphocytes % (Manual) (25-45) % Monocytes % (Manual) (2-11) % Myelocytes % (-0) % Neutrophils # (Manual) (3102-1521) /uL RBC Morphology D-Dimer 654 H (<230) ng/mL ABG pH (7.35-7.45) ABG pCO2 (35-45) mmHg ABG pO2 (80-100) mmHg ABG HCO3 (22-26) mmol/L ABG Total CO2 (21-31) mmol/L ABG O2 Saturation (95-100) % ABG Base Excess (-2-2) mmol/L FiO2 Sodium 139 (137-145) mmol/L Potassium 4.5 (3.4-5.1) mmol/L Chloride 110 H (98-107) mmol/L Carbon Dioxide 17 L (22-32) mmol/L BUN 60 H (9-20) mg/dL Creatinine 1.90 H (0.66-1.25) mg/dL Estimated GFR 35.3 L (>60) mL/min BUN/Creatinine Ratio 31.6 H (6-22) Glucose 103 (80-110) mg/dL Lactate (0.7-2.1) mmol/L Calcium 8.9 (8.4-10.2) mg/dL Magnesium 2.0 (1.6-2.3) mg/dL Total Bilirubin (0.2-1.3) mg/dL AST (17-59) IU/L ALT (21-72) IU/L Alkaline Phosphatase (38-126) U/L Total Creatine Kinase 46 L (55-170) U/L CK-MB (CK-2) TNP CK-MB (CK-2) Rel Index TNP Troponin I 0.061 H (0.01-0.034) ng/mL B-Natriuretic Peptide 1150 H (<100) Total Protein (6.3-8.2) g/dL Albumin (3.5-5.0) g/dL Globulin (1.7-4.1) g/dL Albumin/Globulin Ratio (1.0-2.8) Procalcitonin (<0.5) ng/mL Urine Color Urine Appearance Urine pH (4.5-8.0) Ur Specific [place] (1.000-1.035) Urine Protein (Negative) Urine Glucose (UA) (Negative) g/dL Urine Ketones (NEGATIVE) Urine Occult Blood (Negative) Urine Nitrate (Negative) Urine Bilirubin (NEGATIVE) Urine Urobilinogen (0.2) E.U./dL Ur Leukocyte Esterase (NEGATIVE) Urine RBC (0-5/HPF) Urine WBC (0-5/HPF) Ur Squamous Epith Cells Calcium Oxalate Crystal (None) Amorphous Sediment Urine Bacteria (None) Urine Mucus (Negative) Ur Culture Indicated? Chlamy pneumoniae PCR (Not Detect) Adenovirus (PCR) (Not Detect) B.parapertussis DNA PCR (Not Detect) Coronavirus OC43 (PCR) (Not Detect) Coronavirus HKU1 (PCR) (Not Detect) Coronavirus 229E (PCR) (Not Detect) Coronavirus NL63 (PCR) (Not Detect) Human Metapneumovir PCR (Not Detect) Influenza Type A (PCR) (Not Detect) Influenza Type B (PCR) (Not Detect) Influenza A & B (PCR) (Negative) M. pneumoniae (PCR) (Not Detect) Parainfluenza 1 (PCR) (Not Detect) Parainfluenza 2 (PCR) (Not Detect) Parainfluenza 3 (PCR) (Not Detect) Parainfluenza 4 (PCR) (Not Detect) RSV (PCR) (Not Detect) Entero/Rhino (PCR) (Not Detect) Blood Type Antibody Screen Antibody Identification 06/22/18 06/22/18 06/22/18 Range/Units 14:04 14:04 15:18 WBC (4.5-11.0) X10^3/uL RBC (4.5-5.9) X10^6/uL Hgb (13.5-17.5) g/dL Hct (41-53) % MCV (80-100) fL MCH (26-34) PG MCHC (30-36) % RDW (11.6-14.8) % Plt Count (150-400) X10^3/uL Neut % (Auto) (50-75) % Lymph % (Auto) (25-40) % [place] % (Auto) (3-14) % Eos % (Auto) (2-4) % Baso % (Auto) (0-2) % Neut # (Auto) (2438-8334) /uL Lymph # (Auto) (4145-4862) /uL [place] # (Auto) (0-900) /uL Eos # (Auto) (0-450) /uL Baso # (Auto) (0-100) /uL Total Counted Seg Neutrophils % (38-70) % Lymphocytes % (Manual) (25-45) % Monocytes % (Manual) (2-11) % Myelocytes % (-0) % Neutrophils # (Manual) (1409-7974) /uL RBC Morphology D-Dimer (<230) ng/mL ABG pH (7.35-7.45) ABG pCO2 (35-45) mmHg ABG pO2 (80-100) mmHg ABG HCO3 (22-26) mmol/L ABG Total CO2 (21-31) mmol/L ABG O2 Saturation (95-100) % ABG Base Excess (-2-2) mmol/L FiO2 Sodium (137-145) mmol/L Potassium (3.4-5.1) mmol/L Chloride (98-107) mmol/L Carbon Dioxide (22-32) mmol/L BUN (9-20) mg/dL Creatinine (0.66-1.25) mg/dL Estimated GFR (>60) mL/min BUN/Creatinine Ratio (6-22) Glucose (80-110) mg/dL Lactate 0.8 (0.7-2.1) mmol/L Calcium (8.4-10.2) mg/dL Magnesium (1.6-2.3) mg/dL Total Bilirubin (0.2-1.3) mg/dL AST (17-59) IU/L ALT (21-72) IU/L Alkaline Phosphatase (38-126) U/L Total Creatine Kinase (55-170) U/L CK-MB (CK-2) CK-MB (CK-2) Rel Index Troponin I (0.01-0.034) ng/mL B-Natriuretic Peptide (<100) Total Protein (6.3-8.2) g/dL Albumin (3.5-5.0) g/dL Globulin (1.7-4.1) g/dL Albumin/Globulin Ratio (1.0-2.8) Procalcitonin < 0.05 (<0.5) ng/mL Urine Color Urine Appearance Urine pH (4.5-8.0) Ur Specific [place] (1.000-1.035) Urine Protein (Negative) Urine Glucose (UA) (Negative) g/dL Urine Ketones (NEGATIVE) Urine Occult Blood (Negative) Urine Nitrate (Negative) Urine Bilirubin (NEGATIVE) Urine Urobilinogen (0.2) E.U./dL Ur Leukocyte Esterase (NEGATIVE) Urine RBC 0-1/hpf D (0-5/HPF) Urine WBC 10-30/hpf H (0-5/HPF) Ur Squamous Epith Cells 0-1 /hpf Calcium Oxalate Crystal (None) Amorphous Sediment 2+ Urine Bacteria Many (>30) H (None) Urine Mucus (Negative) Ur Culture Indicated? Specimen cultured Chlamy pneumoniae PCR (Not Detect) Adenovirus (PCR) (Not Detect) B.parapertussis DNA PCR (Not Detect) Coronavirus OC43 (PCR) (Not Detect) Coronavirus HKU1 (PCR) (Not Detect) Coronavirus 229E (PCR) (Not Detect) Coronavirus NL63 (PCR) (Not Detect) Human Metapneumovir PCR (Not Detect) Influenza Type A (PCR) (Not Detect) Influenza Type B (PCR) (Not Detect) Influenza A & B (PCR) (Negative) M. pneumoniae (PCR) (Not Detect) Parainfluenza 1 (PCR) (Not Detect) Parainfluenza 2 (PCR) (Not Detect) Parainfluenza 3 (PCR) (Not Detect) Parainfluenza 4 (PCR) (Not Detect) RSV (PCR) (Not Detect) Entero/Rhino (PCR) (Not Detect) Blood Type Antibody Screen Antibody Identification 06/22/18 06/22/18 06/22/18 Range/Units 15:40 21:24 21:24 WBC (4.5-11.0) X10^3/uL RBC (4.5-5.9) X10^6/uL Hgb (13.5-17.5) g/dL Hct (41-53) % MCV (80-100) fL MCH (26-34) PG MCHC (30-36) % RDW (11.6-14.8) % Plt Count (150-400) X10^3/uL Neut % (Auto) (50-75) % Lymph % (Auto) (25-40) % [place] % (Auto) (3-14) % Eos % (Auto) (2-4) % Baso % (Auto) (0-2) % Neut # (Auto) (0274-6485) /uL Lymph # (Auto) (2906-1052) /uL [place] # (Auto) (0-900) /uL Eos # (Auto) (0-450) /uL Baso # (Auto) (0-100) /uL Total Counted Seg Neutrophils % (38-70) % Lymphocytes % (Manual) (25-45) % Monocytes % (Manual) (2-11) % Myelocytes % (-0) % Neutrophils # (Manual) (0465-4482) /uL RBC Morphology D-Dimer (<230) ng/mL ABG pH (7.35-7.45) ABG pCO2 (35-45) mmHg ABG pO2 (80-100) mmHg ABG HCO3 (22-26) mmol/L ABG Total CO2 (21-31) mmol/L ABG O2 Saturation (95-100) % ABG Base Excess (-2-2) mmol/L FiO2 Sodium (137-145) mmol/L Potassium (3.4-5.1) mmol/L Chloride (98-107) mmol/L Carbon Dioxide (22-32) mmol/L BUN (9-20) mg/dL Creatinine (0.66-1.25) mg/dL Estimated GFR (>60) mL/min BUN/Creatinine Ratio (6-22) Glucose (80-110) mg/dL Lactate 0.9 (0.7-2.1) mmol/L Calcium (8.4-10.2) mg/dL Magnesium (1.6-2.3) mg/dL Total Bilirubin (0.2-1.3) mg/dL AST (17-59) IU/L ALT (21-72) IU/L Alkaline Phosphatase (38-126) U/L Total Creatine Kinase (55-170) U/L CK-MB (CK-2) CK-MB (CK-2) Rel Index Troponin I 0.075 H (0.01-0.034) ng/mL B-Natriuretic Peptide (<100) Total Protein (6.3-8.2) g/dL Albumin (3.5-5.0) g/dL Globulin (1.7-4.1) g/dL Albumin/Globulin Ratio (1.0-2.8) Procalcitonin (<0.5) ng/mL Urine Color Urine Appearance Urine pH (4.5-8.0) Ur Specific [place] (1.000-1.035) Urine Protein (Negative) Urine Glucose (UA) (Negative) g/dL Urine Ketones (NEGATIVE) Urine Occult Blood (Negative) Urine Nitrate (Negative) Urine Bilirubin (NEGATIVE) Urine Urobilinogen (0.2) E.U./dL Ur Leukocyte Esterase (NEGATIVE) Urine RBC (0-5/HPF) Urine WBC (0-5/HPF) Ur Squamous Epith Cells Calcium Oxalate Crystal (None) Amorphous Sediment Urine Bacteria (None) Urine Mucus (Negative) Ur Culture Indicated? Chlamy pneumoniae PCR (Not Detect) Adenovirus (PCR) (Not Detect) B.parapertussis DNA PCR (Not Detect) Coronavirus OC43 (PCR) (Not Detect) Coronavirus HKU1 (PCR) (Not Detect) Coronavirus 229E (PCR) (Not Detect) Coronavirus NL63 (PCR) (Not Detect) Human Metapneumovir PCR (Not Detect) Influenza Type A (PCR) (Not Detect) Influenza Type B (PCR) (Not Detect) Influenza A & B (PCR) Negative (Negative) M. pneumoniae (PCR) (Not Detect) Parainfluenza 1 (PCR) (Not Detect) Parainfluenza 2 (PCR) (Not Detect) Parainfluenza 3 (PCR) (Not Detect) Parainfluenza 4 (PCR) (Not Detect) RSV (PCR) (Not Detect) Entero/Rhino (PCR) (Not Detect) Blood Type Antibody Screen Antibody Identification 06/22/18 06/22/18 06/22/18 Range/Units 21:27 21:36 23:10 WBC (4.5-11.0) X10^3/uL RBC (4.5-5.9) X10^6/uL Hgb (13.5-17.5) g/dL Hct (41-53) % MCV (80-100) fL MCH (26-34) PG MCHC (30-36) % RDW (11.6-14.8) % Plt Count (150-400) X10^3/uL Neut % (Auto) (50-75) % Lymph % (Auto) (25-40) % [place] % (Auto) (3-14) % Eos % (Auto) (2-4) % Baso % (Auto) (0-2) % Neut # (Auto) (1591-4554) /uL Lymph # (Auto) (7828-6028) /uL [place] # (Auto) (0-900) /uL Eos # (Auto) (0-450) /uL Baso # (Auto) (0-100) /uL Total Counted Seg Neutrophils % (38-70) % Lymphocytes % (Manual) (25-45) % Monocytes % (Manual) (2-11) % Myelocytes % (-0) % Neutrophils # (Manual) (9106-6456) /uL RBC Morphology D-Dimer (<230) ng/mL ABG pH 7.30 L (7.35-7.45) ABG pCO2 30.6 L (35-45) mmHg ABG pO2 71 L (80-100) mmHg ABG HCO3 15 L (22-26) mmol/L ABG Total CO2 16 L (21-31) mmol/L ABG O2 Saturation 93 L (95-100) % ABG Base Excess -11.0 L (-2-2) mmol/L FiO2 21 Sodium (137-145) mmol/L Potassium (3.4-5.1) mmol/L Chloride (98-107) mmol/L Carbon Dioxide (22-32) mmol/L BUN (9-20) mg/dL Creatinine (0.66-1.25) mg/dL Estimated GFR (>60) mL/min BUN/Creatinine Ratio (6-22) Glucose (80-110) mg/dL Lactate (0.7-2.1) mmol/L Calcium (8.4-10.2) mg/dL Magnesium (1.6-2.3) mg/dL Total Bilirubin (0.2-1.3) mg/dL AST (17-59) IU/L ALT (21-72) IU/L Alkaline Phosphatase (38-126) U/L Total Creatine Kinase (55-170) U/L CK-MB (CK-2) CK-MB (CK-2) Rel Index Troponin I (0.01-0.034) ng/mL B-Natriuretic Peptide (<100) Total Protein (6.3-8.2) g/dL Albumin (3.5-5.0) g/dL Globulin (1.7-4.1) g/dL Albumin/Globulin Ratio (1.0-2.8) Procalcitonin (<0.5) ng/mL Urine Color Yellow Urine Appearance Turbid Urine pH 7.5 (4.5-8.0) Ur Specific [place] 1.015 (1.000-1.035) Urine Protein 3+ H (Negative) Urine Glucose (UA) Negative (Negative) g/dL Urine Ketones Negative (NEGATIVE) Urine Occult Blood 1+ H (Negative) Urine Nitrate Positive (Negative) Urine Bilirubin Negative (NEGATIVE) Urine Urobilinogen 0.2 (0.2) E.U./dL Ur Leukocyte Esterase 1+ H (NEGATIVE) Urine RBC 0-1/hpf (0-5/HPF) Urine WBC 30-100/hpf H (0-5/HPF) Ur Squamous Epith Cells 1-5 /hpf Calcium Oxalate Crystal Occasional H (None) Amorphous Sediment Urine Bacteria Many (>30) H (None) Urine Mucus 3+ H (Negative) Ur Culture Indicated? Specimen cultured Chlamy pneumoniae PCR Not detected (Not Detect) Adenovirus (PCR) Not detected (Not Detect) B.parapertussis DNA PCR Not detected (Not Detect) Coronavirus OC43 (PCR) Not detected (Not Detect) Coronavirus HKU1 (PCR) Not detected (Not Detect) Coronavirus 229E (PCR) Not detected (Not Detect) Coronavirus NL63 (PCR) Not detected (Not Detect) Human Metapneumovir PCR Not detected (Not Detect) Influenza Type A (PCR) Not detected (Not Detect) Influenza Type B (PCR) Not detected (Not Detect) Influenza A & B (PCR) (Negative) M. pneumoniae (PCR) Not detected (Not Detect) Parainfluenza 1 (PCR) Not detected (Not Detect) Parainfluenza 2 (PCR) Not detected (Not Detect) Parainfluenza 3 (PCR) Not detected (Not Detect) Parainfluenza 4 (PCR) Not detected (Not Detect) RSV (PCR) Not detected (Not Detect) Entero/Rhino (PCR) Not detected (Not Detect) Blood Type Antibody Screen Antibody Identification 06/23/18 06/23/18 06/23/18 Range/Units 01:58 06:25 06:25 WBC 6.8 (4.5-11.0) X10^3/uL RBC 4.63 (4.5-5.9) X10^6/uL Hgb 13.0 L (13.5-17.5) g/dL Hct 40.5 L (41-53) % MCV 87.4 (80-100) fL MCH 28.0 (26-34) PG MCHC 32.1 (30-36) % RDW 14.0 (11.6-14.8) % Plt Count 259 (150-400) X10^3/uL Neut % (Auto) (50-75) % Lymph % (Auto) (25-40) % [place] % (Auto) (3-14) % Eos % (Auto) (2-4) % Baso % (Auto) (0-2) % Neut # (Auto) (2[address]-6074) /uL Lymph # (Auto) (0003-7288) /uL [place] # (Auto) (0-900) /uL Eos # (Auto) (0-450) /uL Baso # (Auto) (0-100) /uL Total Counted 100 Seg Neutrophils % 89.0 H (38-70) % Lymphocytes % (Manual) 6.0 L (25-45) % Monocytes % (Manual) 4.0 (2-11) % Myelocytes % 1.0 H (-0) % Neutrophils # (Manual) 6052 H (5423-5026) /uL RBC Morphology Normal morphology D-Dimer (<230) ng/mL ABG pH (7.35-7.45) ABG pCO2 (35-45) mmHg ABG pO2 (80-100) mmHg ABG HCO3 (22-26) mmol/L ABG Total CO2 (21-31) mmol/L ABG O2 Saturation (95-100) % ABG Base Excess (-2-2) mmol/L FiO2 Sodium 140 (137-145) mmol/L Potassium 4.9 (3.4-5.1) mmol/L Chloride 113 H (98-107) mmol/L Carbon Dioxide 16 L (22-32) mmol/L BUN 61 H (9-20) mg/dL Creatinine 2.10 H (0.66-1.25) mg/dL Estimated GFR 31.5 L (>60) mL/min BUN/Creatinine Ratio 29.0 H (6-22) Glucose 109 (80-110) mg/dL Lactate (0.7-2.1) mmol/L Calcium 8.7 (8.4-10.2) mg/dL Magnesium 1.9 (1.6-2.3) mg/dL Total Bilirubin (0.2-1.3) mg/dL AST (17-59) IU/L ALT (21-72) IU/L Alkaline Phosphatase (38-126) U/L Total Creatine Kinase (55-170) U/L CK-MB (CK-2) CK-MB (CK-2) Rel Index Troponin I 0.075 H (0.01-0.034) ng/mL B-Natriuretic Peptide (<100) Total Protein (6.3-8.2) g/dL Albumin (3.5-5.0) g/dL Globulin (1.7-4.1) g/dL Albumin/Globulin Ratio (1.0-2.8) Procalcitonin (<0.5) ng/mL Urine Color Urine Appearance Urine pH (4.5-8.0) Ur Specific [place] (1.000-1.035) Urine Protein (Negative) Urine Glucose (UA) (Negative) g/dL Urine Ketones (NEGATIVE) Urine Occult Blood (Negative) Urine Nitrate (Negative) Urine Bilirubin (NEGATIVE) Urine Urobilinogen (0.2) E.U./dL Ur Leukocyte Esterase (NEGATIVE) Urine RBC (0-5/HPF) Urine WBC (0-5/HPF) Ur Squamous Epith Cells Calcium Oxalate Crystal (None) Amorphous Sediment Urine Bacteria (None) Urine Mucus (Negative) Ur Culture Indicated? Chlamy pneumoniae PCR (Not Detect) Adenovirus (PCR) (Not Detect) B.parapertussis DNA PCR (Not Detect) Coronavirus OC43 (PCR) (Not Detect) Coronavirus HKU1 (PCR) (Not Detect) Coronavirus 229E (PCR) (Not Detect) Coronavirus NL63 (PCR) (Not Detect) Human Metapneumovir PCR (Not Detect) Influenza Type A (PCR) (Not Detect) Influenza Type B (PCR) (Not Detect) Influenza A & B (PCR) (Negative) M. pneumoniae (PCR) (Not Detect) Parainfluenza 1 (PCR) (Not Detect) Parainfluenza 2 (PCR) (Not Detect) Parainfluenza 3 (PCR) (Not Detect) Parainfluenza 4 (PCR) (Not Detect) RSV (PCR) (Not Detect) Entero/Rhino (PCR) (Not Detect) Blood Type Antibody Screen Antibody Identification 06/23/18 06/23/18 06/23/18 Range/Units 06:25 16:09 21:38 WBC (4.5-11.0) X10^3/uL RBC (4.5-5.9) X10^6/uL Hgb (13.5-17.5) g/dL Hct (41-53) % MCV (80-100) fL MCH (26-34) PG MCHC (30-36) % RDW (11.6-14.8) % Plt Count (150-400) X10^3/uL Neut % (Auto) (50-75) % Lymph % (Auto) (25-40) % [place] % (Auto) (3-14) % Eos % (Auto) (2-4) % Baso % (Auto) (0-2) % Neut # (Auto) (2119-8371) /uL Lymph # (Auto) (3507-4419) /uL [place] # (Auto) (0-900) /uL Eos # (Auto) (0-450) /uL Baso # (Auto) (0-100) /uL Total Counted Seg Neutrophils % (38-70) % Lymphocytes % (Manual) (25-45) % Monocytes % (Manual) (2-11) % Myelocytes % (-0) % Neutrophils # (Manual) (1022-8876) /uL RBC Morphology D-Dimer (<230) ng/mL ABG pH 7.22 L* (7.35-7.45) ABG pCO2 38.7 (35-45) mmHg ABG pO2 59 L (80-100) mmHg ABG HCO3 16 L (22-26) mmol/L ABG Total CO2 17 L (21-31) mmol/L ABG O2 Saturation 85 L (95-100) % ABG Base Excess -12.0 L (-2-2) mmol/L FiO2 0.21 Sodium (137-145) mmol/L Potassium (3.4-5.1) mmol/L Chloride (98-107) mmol/L Carbon Dioxide (22-32) mmol/L BUN (9-20) mg/dL Creatinine 1.90 H (0.66-1.25) mg/dL Estimated GFR 35.3 L (>60) mL/min BUN/Creatinine Ratio (6-22) Glucose (80-110) mg/dL Lactate (0.7-2.1) mmol/L Calcium (8.4-10.2) mg/dL Magnesium (1.6-2.3) mg/dL Total Bilirubin (0.2-1.3) mg/dL AST (17-59) IU/L ALT (21-72) IU/L Alkaline Phosphatase (38-126) U/L Total Creatine Kinase (55-170) U/L CK-MB (CK-2) CK-MB (CK-2) Rel Index Troponin I 0.074 H (0.01-0.034) ng/mL B-Natriuretic Peptide (<100) Total Protein (6.3-8.2) g/dL Albumin (3.5-5.0) g/dL Globulin (1.7-4.1) g/dL Albumin/Globulin Ratio (1.0-2.8) Procalcitonin (<0.5) ng/mL Urine Color Urine Appearance Urine pH (4.5-8.0) Ur Specific [place] (1.000-1.035) Urine Protein (Negative) Urine Glucose (UA) (Negative) g/dL Urine Ketones (NEGATIVE) Urine Occult Blood (Negative) Urine Nitrate (Negative) Urine Bilirubin (NEGATIVE) Urine Urobilinogen (0.2) E.U./dL Ur Leukocyte Esterase (NEGATIVE) Urine RBC (0-5/HPF) Urine WBC (0-5/HPF) Ur Squamous Epith Cells Calcium Oxalate Crystal (None) Amorphous Sediment Urine Bacteria (None) Urine Mucus (Negative) Ur Culture Indicated? Chlamy pneumoniae PCR (Not Detect) Adenovirus (PCR) (Not Detect) B.parapertussis DNA PCR (Not Detect) Coronavirus OC43 (PCR) (Not Detect) Coronavirus HKU1 (PCR) (Not Detect) Coronavirus 229E (PCR) (Not Detect) Coronavirus NL63 (PCR) (Not Detect) Human Metapneumovir PCR (Not Detect) Influenza Type A (PCR) (Not Detect) Influenza Type B (PCR) (Not Detect) Influenza A & B (PCR) (Negative) M. pneumoniae (PCR) (Not Detect) Parainfluenza 1 (PCR) (Not Detect) Parainfluenza 2 (PCR) (Not Detect) Parainfluenza 3 (PCR) (Not Detect) Parainfluenza 4 (PCR) (Not Detect) RSV (PCR) (Not Detect) Entero/Rhino (PCR) (Not Detect) Blood Type Antibody Screen Antibody Identification 06/23/18 06/23/18 06/23/18 Range/Units 21:41 21:41 21:41 WBC 8.2 (4.5-11.0) X10^3/uL RBC 4.55 (4.5-5.9) X10^6/uL Hgb 12.8 L (13.5-17.5) g/dL Hct 40.1 L (41-53) % MCV 88.2 (80-100) fL MCH 28.1 (26-34) PG MCHC 31.9 (30-36) % RDW 14.2 (11.6-14.8) % Plt Count 267 (150-400) X10^3/uL Neut % (Auto) 92.3 H (50-75) % Lymph % (Auto) 5.8 L (25-40) % [place] % (Auto) 1.8 L (3-14) % Eos % (Auto) 0.0 L (2-4) % Baso % (Auto) 0.1 (0-2) % Neut # (Auto) 7600 H (5621-9777) /uL Lymph # (Auto) 500 L (6987-2542) /uL [place] # (Auto) 200 (0-900) /uL Eos # (Auto) 0 (0-450) /uL Baso # (Auto) 0 (0-100) /uL Total Counted Seg Neutrophils % (38-70) % Lymphocytes % (Manual) (25-45) % Monocytes % (Manual) (2-11) % Myelocytes % (-0) % Neutrophils # (Manual) (8382-5648) /uL RBC Morphology D-Dimer (<230) ng/mL ABG pH (7.35-7.45) ABG pCO2 (35-45) mmHg ABG pO2 (80-100) mmHg ABG HCO3 (22-26) mmol/L ABG Total CO2 (21-31) mmol/L ABG O2 Saturation (95-100) % ABG Base Excess (-2-2) mmol/L FiO2 Sodium 140 (137-145) mmol/L Potassium 5.2 H (3.4-5.1) mmol/L Chloride 112 H (98-107) mmol/L Carbon Dioxide 17 L (22-32) mmol/L BUN 73 H (9-20) mg/dL Creatinine 2.40 H (0.66-1.25) mg/dL Estimated GFR 27.0 L (>60) mL/min BUN/Creatinine Ratio 30.4 H (6-22) Glucose 138 H (80-110) mg/dL Lactate (0.7-2.1) mmol/L Calcium 8.8 (8.4-10.2) mg/dL Magnesium (1.6-2.3) mg/dL Total Bilirubin 0.3 (0.2-1.3) mg/dL AST 39 (17-59) IU/L ALT 45 (21-72) IU/L Alkaline Phosphatase 55 (38-126) U/L Total Creatine Kinase (55-170) U/L CK-MB (CK-2) CK-MB (CK-2) Rel Index Troponin I 0.205 H* (0.01-0.034) ng/mL B-Natriuretic Peptide (<100) Total Protein 6.2 L (6.3-8.2) g/dL Albumin 3.2 L (3.5-5.0) g/dL Globulin 3.0 (1.7-4.1) g/dL Albumin/Globulin Ratio 1.1 (1.0-2.8) Procalcitonin (<0.5) ng/mL Urine Color Urine Appearance Urine pH (4.5-8.0) Ur Specific [place] (1.000-1.035) Urine Protein (Negative) Urine Glucose (UA) (Negative) g/dL Urine Ketones (NEGATIVE) Urine Occult Blood (Negative) Urine Nitrate (Negative) Urine Bilirubin (NEGATIVE) Urine Urobilinogen (0.2) E.U./dL Ur Leukocyte Esterase (NEGATIVE) Urine RBC (0-5/HPF) Urine WBC (0-5/HPF) Ur Squamous Epith Cells Calcium Oxalate Crystal (None) Amorphous Sediment Urine Bacteria (None) Urine Mucus (Negative) Ur Culture Indicated? Chlamy pneumoniae PCR (Not Detect) Adenovirus (PCR) (Not Detect) B.parapertussis DNA PCR (Not Detect) Coronavirus OC43 (PCR) (Not Detect) Coronavirus HKU1 (PCR) (Not Detect) Coronavirus 229E (PCR) (Not Detect) Coronavirus NL63 (PCR) (Not Detect) Human Metapneumovir PCR (Not Detect) Influenza Type A (PCR) (Not Detect) Influenza Type B (PCR) (Not Detect) Influenza A & B (PCR) (Negative) M. pneumoniae (PCR) (Not Detect) Parainfluenza 1 (PCR) (Not Detect) Parainfluenza 2 (PCR) (Not Detect) Parainfluenza 3 (PCR) (Not Detect) Parainfluenza 4 (PCR) (Not Detect) RSV (PCR) (Not Detect) Entero/Rhino (PCR) (Not Detect) Blood Type Antibody Screen Antibody Identification 06/23/18 06/23/18 Range/Units 21:41 22:57 WBC (4.5-11.0) X10^3/uL RBC (4.5-5.9) X10^6/uL Hgb (13.5-17.5) g/dL Hct (41-53) % MCV (80-100) fL MCH (26-34) PG MCHC (30-36) % RDW (11.6-14.8) % Plt Count (150-400) X10^3/uL Neut % (Auto) (50-75) % Lymph % (Auto) (25-40) % [place] % (Auto) (3-14) % Eos % (Auto) (2-4) % Baso % (Auto) (0-2) % Neut # (Auto) (8691-6744) /uL Lymph # (Auto) (5954-2306) /uL [place] # (Auto) (0-900) /uL Eos # (Auto) (0-450) /uL Baso # (Auto) (0-100) /uL Total Counted Seg Neutrophils % (38-70) % Lymphocytes % (Manual) (25-45) % Monocytes % (Manual) (2-11) % Myelocytes % (-0) % Neutrophils # (Manual) (6322-9229) /uL RBC Morphology D-Dimer (<230) ng/mL ABG pH 7.25 L* (7.35-7.45) ABG pCO2 36.0 (35-45) mmHg ABG pO2 118 H (80-100) mmHg ABG HCO3 16 L (22-26) mmol/L ABG Total CO2 17 L (21-31) mmol/L ABG O2 Saturation 98 (95-100) % ABG Base Excess -12.0 L (-2-2) mmol/L FiO2 0.35 Sodium (137-145) mmol/L Potassium (3.4-5.1) mmol/L Chloride (98-107) mmol/L Carbon Dioxide (22-32) mmol/L BUN (9-20) mg/dL Creatinine (0.66-1.25) mg/dL Estimated GFR (>60) mL/min BUN/Creatinine Ratio (6-22) Glucose (80-110) mg/dL Lactate (0.7-2.1) mmol/L Calcium (8.4-10.2) mg/dL Magnesium (1.6-2.3) mg/dL Total Bilirubin (0.2-1.3) mg/dL AST (17-59) IU/L ALT (21-72) IU/L Alkaline Phosphatase (38-126) U/L Total Creatine Kinase (55-170) U/L CK-MB (CK-2) CK-MB (CK-2) Rel Index Troponin I (0.01-0.034) ng/mL B-Natriuretic Peptide (<100) Total Protein (6.3-8.2) g/dL Albumin (3.5-5.0) g/dL Globulin (1.7-4.1) g/dL Albumin/Globulin Ratio (1.0-2.8) Procalcitonin (<0.5) ng/mL Urine Color Urine Appearance Urine pH (4.5-8.0) Ur Specific [place] (1.000-1.035) Urine Protein (Negative) Urine Glucose (UA) (Negative) g/dL Urine Ketones (NEGATIVE) Urine Occult Blood (Negative) Urine Nitrate (Negative) Urine Bilirubin (NEGATIVE) Urine Urobilinogen (0.2) E.U./dL Ur Leukocyte Esterase (NEGATIVE) Urine RBC (0-5/HPF) Urine WBC (0-5/HPF) Ur Squamous Epith Cells Calcium Oxalate Crystal (None) Amorphous Sediment Urine Bacteria (None) Urine Mucus (Negative) Ur Culture Indicated? Chlamy pneumoniae PCR (Not Detect) Adenovirus (PCR) (Not Detect) B.parapertussis DNA PCR (Not Detect) Coronavirus OC43 (PCR) (Not Detect) Coronavirus HKU1 (PCR) (Not Detect) Coronavirus 229E (PCR) (Not Detect) Coronavirus NL63 (PCR) (Not Detect) Human Metapneumovir PCR (Not Detect) Influenza Type A (PCR) (Not Detect) Influenza Type B (PCR) (Not Detect) Influenza A & B (PCR) (Negative) M. pneumoniae (PCR) (Not Detect) Parainfluenza 1 (PCR) (Not Detect) Parainfluenza 2 (PCR) (Not Detect) Parainfluenza 3 (PCR) (Not Detect) Parainfluenza 4 (PCR) (Not Detect) RSV (PCR) (Not Detect) Entero/Rhino (PCR) (Not Detect) Blood Type O Positive Antibody Screen Positive Antibody Identification Anti-K Point of Care Testing Glucose POC 122 Urine Dip Bedside Urine Glucose Negative Bedside Urine Bilirubin - Negative Bedside Urine Ketone - Negative Urine Specific [place] 1.015 Bedside Urine Occult Blood + Bedside Urine pH 7.5 Bedside Urine Protein +++ 300 Bedside Urine Urobilinogen +/- 1mg Bedside Urine Nitrite - Negative Bedside Urine Leukocytes ++ 125 Esterase Imaging Data Chest x-ray: Radiologist's impression: [address] [address] XRay Report Signed Patient: Kahlil Bailey RMR#: [id number] : 9Acct:[id number] Age/Sex: 67 / MDate of Service: 06/22/18 Loc: ED Accession Number: [id number] Procedure: XR chest 1V Ordering Provider: Ivan West PROCEDURE: XR CHEST 1V INDICATIONS: dyspnea TECHNIQUE: One view of the chest was acquired. COMPARISON: [facility], CT, PE STUDY (CTA CHEST), 01/27/2015, 12:26. [facility], CR, CHEST 1 VIEW, 01/15/2017, 10:54. [facility], CR, CHEST 1 VIEW, 01/17/2017, 11:14. FINDINGS: Surgical changes and devices: None. Lungs and pleura: Bilateral perihilar infiltrates, right greater than left. There is chronic interstitial prominence. Left basilar consolidation. No pleural effusions or pneumothorax. Mediastinum: Mediastinal contours appear normal. Heart size is normal. Bones and chest wall: No suspicious bony lesions. Overlying soft tissues ap pear unremarkable. IMPRESSION: 1. Bilateral perihilar infiltrates and left basilar consolidation suspicious for pneumonia. 2. There is chronic interstitial prominence. Dictated by: Tonya Cazares M.D. on 06/22/2018 at 14:09 Approved by: Tonya Cazares M.D. on 06/22/2018 at 14:11 ECG Data Interpretation: EKG shows sinus rhythm with no ST elevation or depression. No ectopy. Ventricular rate of 88. Pr interval 129. QRS duration is 68. QTC of 396. MDM Narrative Medical decision making narrative: chest x-ray shows findings of perihilar bilateral pneumonia and also left basilar pneumonia. CBC shows elevated white count of 11 kg. Neutrophils are elevated at 9000. chemistry shows decreased GFR 35.3 and elevated creatinine of 1.9. Troponin was elevated at .06. BNP was elevated at 1150. sinus symptoms presents as pneumonia. Due to patient's history of COPD and increased GFR suspect that the troponin and the BMP are elevated due to this. He was placed on Levaquin IV in the emergency room and also Rocephin. Will hold on using any diuretics at this point due to his decreased GFR and see have his BNP GFR improve with hydration. He is admitted to inpatient services. Dr. szymanski accepted. <Wayne Boothe, - Last Filed: 06/27/18 07:36> Lab Data Lab Results 06/22/18 06/22/18 06/22/18 Range/Units 14:04 14:04 14:04 WBC 11.4 H (4.5-11.0) X10^3/uL RBC 4.91 (4.5-5.9) X10^6/uL Hgb 13.8 (13.5-17.5) g/dL Hct 42.6 (41-53) % MCV 86.8 (80-100) fL MCH 28.0 (26-34) PG MCHC 32.3 (30-36) % RDW 13.7 (11.6-14.8) % Plt Count 276 (150-400) X10^3/uL Neut % (Auto) 81.4 H (50-75) % Lymph % (Auto) 10.0 L (25-40) % [place] % (Auto) 6.7 (3-14) % Eos % (Auto) 1.3 L (2-4) % Baso % (Auto) 0.6 (0-2) % Neut # (Auto) 9300 H (3681-1498) /uL Lymph # (Auto) 1100 (1772-9962) /uL [place] # (Auto) 800 (0-900) /uL Eos # (Auto) 100 (0-450) /uL Baso # (Auto) 100 (0-100) /uL Total Counted Seg Neutrophils % (38-70) % Lymphocytes % (Manual) (25-45) % Monocytes % (Manual) (2-11) % Myelocytes % (-0) % Neutrophils # (Manual) (5867-2600) /uL RBC Morphology D-Dimer 654 H (<230) ng/mL ABG pH (7.35-7.45) ABG pCO2 (35-45) mmHg ABG pO2 (80-100) mmHg ABG HCO3 (22-26) mmol/L ABG Total CO2 (21-31) mmol/L ABG O2 Saturation (95-100) % ABG Base Excess (-2-2) mmol/L FiO2 Sodium 139 (137-145) mmol/L Potassium 4.5 (3.4-5.1) mmol/L Chloride 110 H (98-107) mmol/L Carbon Dioxide 17 L (22-32) mmol/L BUN 60 H (9-20) mg/dL Creatinine 1.90 H (0.66-1.25) mg/dL Estimated GFR 35.3 L (>60) mL/min BUN/Creatinine Ratio 31.6 H (6-22) Glucose 103 (80-110) mg/dL Lactate (0.7-2.1) mmol/L Calcium 8.9 (8.4-10.2) mg/dL Magnesium 2.0 (1.6-2.3) mg/dL Total Bilirubin (0.2-1.3) mg/dL AST (17-59) IU/L ALT (21-72) IU/L Alkaline Phosphatase (38-126) U/L Total Creatine Kinase 46 L (55-170) U/L CK-MB (CK-2) TNP CK-MB (CK-2) Rel Index TNP Troponin I 0.061 H (0.01-0.034) ng/mL B-Natriuretic Peptide 1150 H (<100) Total Protein (6.3-8.2) g/dL Albumin (3.5-5.0) g/dL Globulin (1.7-4.1) g/dL Albumin/Globulin Ratio (1.0-2.8) Procalcitonin (<0.5) ng/mL Urine Color Urine Appearance Urine pH (4.5-8.0) Ur Specific [place] (1.000-1.035) Urine Protein (Negative) Urine Glucose (UA) (Negative) g/dL Urine Ketones (NEGATIVE) Urine Occult Blood (Negative) Urine Nitrate (Negative) Urine Bilirubin (NEGATIVE) Urine Urobilinogen (0.2) E.U./dL Ur Leukocyte Esterase (NEGATIVE) Urine RBC (0-5/HPF) Urine WBC (0-5/HPF) Ur Squamous Epith Cells Calcium Oxalate Crystal (None) Amorphous Sediment Urine Bacteria (None) Urine Mucus (Negative) Ur Culture Indicated? Chlamy pneumoniae PCR (Not Detect) Adenovirus (PCR) (Not Detect) B.parapertussis DNA PCR (Not Detect) Coronavirus OC43 (PCR) (Not Detect) Coronavirus HKU1 (PCR) (Not Detect) Coronavirus 229E (PCR) (Not Detect) Coronavirus NL63 (PCR) (Not Detect) Human Metapneumovir PCR (Not Detect) Influenza Type A (PCR) (Not Detect) Influenza Type B (PCR) (Not Detect) Influenza A & B (PCR) (Negative) M. pneumoniae (PCR) (Not Detect) Parainfluenza 1 (PCR) (Not Detect) Parainfluenza 2 (PCR) (Not Detect) Parainfluenza 3 (PCR) (Not Detect) Parainfluenza 4 (PCR) (Not Detect) RSV (PCR) (Not Detect) Entero/Rhino (PCR) (Not Detect) Blood Type Antibody Screen Antibody Identification 06/22/18 06/22/18 06/22/18 Range/Units 14:04 14:04 15:18 WBC (4.5-11.0) X10^3/uL RBC (4.5-5.9) X10^6/uL Hgb (13.5-17.5) g/dL Hct (41-53) % MCV (80-100) fL MCH (26-34) PG MCHC (30-36) % RDW (11.6-14.8) % Plt Count (150-400) X10^3/uL Neut % (Auto) (50-75) % Lymph % (Auto) (25-40) % [place] % (Auto) (3-14) % Eos % (Auto) (2-4) % Baso % (Auto) (0-2) % Neut # (Auto) (8223-9650) /uL Lymph # (Auto) (9664-1207) /uL [place] # (Auto) (0-900) /uL Eos # (Auto) (0-450) /uL Baso # (Auto) (0-100) /uL Total Counted Seg Neutrophils % (38-70) % Lymphocytes % (Manual) (25-45) % Monocytes % (Manual) (2-11) % Myelocytes % (-0) % Neutrophils # (Manual) (1309-5584) /uL RBC Morphology D-Dimer (<230) ng/mL ABG pH (7.35-7.45) ABG pCO2 (35-45) mmHg ABG pO2 (80-100) mmHg ABG HCO3 (22-26) mmol/L ABG Total CO2 (21-31) mmol/L ABG O2 Saturation (95-100) % ABG Base Excess (-2-2) mmol/L FiO2 Sodium (137-145) mmol/L Potassium (3.4-5.1) mmol/L Chloride (98-107) mmol/L Carbon Dioxide (22-32) mmol/L BUN (9-20) mg/dL Creatinine (0.66-1.25) mg/dL Estimated GFR (>60) mL/min BUN/Creatinine Ratio (6-22) Glucose (80-110) mg/dL Lactate 0.8 (0.7-2.1) mmol/L Calcium (8.4-10.2) mg/dL Magnesium (1.6-2.3) mg/dL Total Bilirubin (0.2-1.3) mg/dL AST (17-59) IU/L ALT (21-72) IU/L Alkaline Phosphatase (38-126) U/L Total Creatine Kinase (55-170) U/L CK-MB (CK-2) CK-MB (CK-2) Rel Index Troponin I (0.01-0.034) ng/mL B-Natriuretic Peptide (<100) Total Protein (6.3-8.2) g/dL Albumin (3.5-5.0) g/dL Globulin (1.7-4.1) g/dL Albumin/Globulin Ratio (1.0-2.8) Procalcitonin < 0.05 (<0.5) ng/mL Urine Color Urine Appearance Urine pH (4.5-8.0) Ur Specific [place] (1.000-1.035) Urine Protein (Negative) Urine Glucose (UA) (Negative) g/dL Urine Ketones (NEGATIVE) Urine Occult Blood (Negative) Urine Nitrate (Negative) Urine Bilirubin (NEGATIVE) Urine Urobilinogen (0.2) E.U./dL Ur Leukocyte Esterase (NEGATIVE) Urine RBC 0-1/hpf D (0-5/HPF) Urine WBC 10-30/hpf H (0-5/HPF) Ur Squamous Epith Cells 0-1 /hpf Calcium Oxalate Crystal (None) Amorphous Sediment 2+ Urine Bacteria Many (>30) H (None) Urine Mucus (Negative) Ur Culture Indicated? Specimen cultured Chlamy pneumoniae PCR (Not Detect) Adenovirus (PCR) (Not Detect) B.parapertussis DNA PCR (Not Detect) Coronavirus OC43 (PCR) (Not Detect) Coronavirus HKU1 (PCR) (Not Detect) Coronavirus 229E (PCR) (Not Detect) Coronavirus NL63 (PCR) (Not Detect) Human Metapneumovir PCR (Not Detect) Influenza Type A (PCR) (Not Detect) Influenza Type B (PCR) (Not Detect) Influenza A & B (PCR) (Negative) M. pneumoniae (PCR) (Not Detect) Parainfluenza 1 (PCR) (Not Detect) Parainfluenza 2 (PCR) (Not Detect) Parainfluenza 3 (PCR) (Not Detect) Parainfluenza 4 (PCR) (Not Detect) RSV (PCR) (Not Detect) Entero/Rhino (PCR) (Not Detect) Blood Type Antibody Screen Antibody Identification 06/22/18 06/22/18 06/22/18 Range/Units 15:40 21:24 21:24 WBC (4.5-11.0) X10^3/uL RBC (4.5-5.9) X10^6/uL Hgb (13.5-17.5) g/dL Hct (41-53) % MCV (80-100) fL MCH (26-34) PG MCHC (30-36) % RDW (11.6-14.8) % Plt Count (150-400) X10^3/uL Neut % (Auto) (50-75) % Lymph % (Auto) (25-40) % [place] % (Auto) (3-14) % Eos % (Auto) (2-4) % Baso % (Auto) (0-2) % Neut # (Auto) (0806-5055) /uL Lymph # (Auto) (5569-8768) /uL [place] # (Auto) (0-900) /uL Eos # (Auto) (0-450) /uL Baso # (Auto) (0-100) /uL Total Counted Seg Neutrophils % (38-70) % Lymphocytes % (Manual) (25-45) % Monocytes % (Manual) (2-11) % Myelocytes % (-0) % Neutrophils # (Manual) (8534-2944) /uL RBC Morphology D-Dimer (<230) ng/mL ABG pH (7.35-7.45) ABG pCO2 (35-45) mmHg ABG pO2 (80-100) mmHg ABG HCO3 (22-26) mmol/L ABG Total CO2 (21-31) mmol/L ABG O2 Saturation (95-100) % ABG Base Excess (-2-2) mmol/L FiO2 Sodium (137-145) mmol/L Potassium (3.4-5.1) mmol/L Chloride (98-107) mmol/L Carbon Dioxide (22-32) mmol/L BUN (9-20) mg/dL Creatinine (0.66-1.25) mg/dL Estimated GFR (>60) mL/min BUN/Creatinine Ratio (6-22) Glucose (80-110) mg/dL Lactate 0.9 (0.7-2.1) mmol/L Calcium (8.4-10.2) mg/dL Magnesium (1.6-2.3) mg/dL Total Bilirubin (0.2-1.3) mg/dL AST (17-59) IU/L ALT (21-72) IU/L Alkaline Phosphatase (38-126) U/L Total Creatine Kinase (55-170) U/L CK-MB (CK-2) CK-MB (CK-2) Rel Index Troponin I 0.075 H (0.01-0.034) ng/mL B-Natriuretic Peptide (<100) Total Protein (6.3-8.2) g/dL Albumin (3.5-5.0) g/dL Globulin (1.7-4.1) g/dL Albumin/Globulin Ratio (1.0-2.8) Procalcitonin (<0.5) ng/mL Urine Color Urine Appearance Urine pH (4.5-8.0) Ur Specific [place] (1.000-1.035) Urine Protein (Negative) Urine Glucose (UA) (Negative) g/dL Urine Ketones (NEGATIVE) Urine Occult Blood (Negative) Urine Nitrate (Negative) Urine Bilirubin (NEGATIVE) Urine Urobilinogen (0.2) E.U./dL Ur Leukocyte Esterase (NEGATIVE) Urine RBC (0-5/HPF) Urine WBC (0-5/HPF) Ur Squamous Epith Cells Calcium Oxalate Crystal (None) Amorphous Sediment Urine Bacteria (None) Urine Mucus (Negative) Ur Culture Indicated? Chlamy pneumoniae PCR (Not Detect) Adenovirus (PCR) (Not Detect) B.parapertussis DNA PCR (Not Detect) Coronavirus OC43 (PCR) (Not Detect) Coronavirus HKU1 (PCR) (Not Detect) Coronavirus 229E (PCR) (Not Detect) Coronavirus NL63 (PCR) (Not Detect) Human Metapneumovir PCR (Not Detect) Influenza Type A (PCR) (Not Detect) Influenza Type B (PCR) (Not Detect) Influenza A & B (PCR) Negative (Negative) M. pneumoniae (PCR) (Not Detect) Parainfluenza 1 (PCR) (Not Detect) Parainfluenza 2 (PCR) (Not Detect) Parainfluenza 3 (PCR) (Not Detect) Parainfluenza 4 (PCR) (Not Detect) RSV (PCR) (Not Detect) Entero/Rhino (PCR) (Not Detect) Blood Type Antibody Screen Antibody Identification 06/22/18 06/22/18 06/22/18 Range/Units 21:27 21:36 23:10 WBC (4.5-11.0) X10^3/uL RBC (4.5-5.9) X10^6/uL Hgb (13.5-17.5) g/dL Hct (41-53) % MCV (80-100) fL MCH (26-34) PG MCHC (30-36) % RDW (11.6-14.8) % Plt Count (150-400) X10^3/uL Neut % (Auto) (50-75) % Lymph % (Auto) (25-40) % [place] % (Auto) (3-14) % Eos % (Auto) (2-4) % Baso % (Auto) (0-2) % Neut # (Auto) (9558-1633) /uL Lymph # (Auto) (7875-9628) /uL [place] # (Auto) (0-900) /uL Eos # (Auto) (0-450) /uL Baso # (Auto) (0-100) /uL Total Counted Seg Neutrophils % (38-70) % Lymphocytes % (Manual) (25-45) % Monocytes % (Manual) (2-11) % Myelocytes % (-0) % Neutrophils # (Manual) (6890-2137) /uL RBC Morphology D-Dimer (<230) ng/mL ABG pH 7.30 L (7.35-7.45) ABG pCO2 30.6 L (35-45) mmHg ABG pO2 71 L (80-100) mmHg ABG HCO3 15 L (22-26) mmol/L ABG Total CO2 16 L (21-31) mmol/L ABG O2 Saturation 93 L (95-100) % ABG Base Excess -11.0 L (-2-2) mmol/L FiO2 21 Sodium (137-145) mmol/L Potassium (3.4-5.1) mmol/L Chloride (98-107) mmol/L Carbon Dioxide (22-32) mmol/L BUN (9-20) mg/dL Creatinine (0.66-1.25) mg/dL Estimated GFR (>60) mL/min BUN/Creatinine Ratio (6-22) Glucose (80-110) mg/dL Lactate (0.7-2.1) mmol/L Calcium (8.4-10.2) mg/dL Magnesium (1.6-2.3) mg/dL Total Bilirubin (0.2-1.3) mg/dL AST (17-59) IU/L ALT (21-72) IU/L Alkaline Phosphatase (38-126) U/L Total Creatine Kinase (55-170) U/L CK-MB (CK-2) CK-MB (CK-2) Rel Index Troponin I (0.01-0.034) ng/mL B-Natriuretic Peptide (<100) Total Protein (6.3-8.2) g/dL Albumin (3.5-5.0) g/dL Globulin (1.7-4.1) g/dL Albumin/Globulin Ratio (1.0-2.8) Procalcitonin (<0.5) ng/mL Urine Color Yellow Urine Appearance Turbid Urine pH 7.5 (4.5-8.0) Ur Specific [place] 1.015 (1.000-1.035) Urine Protein 3+ H (Negative) Urine Glucose (UA) Negative (Negative) g/dL Urine Ketones Negative (NEGATIVE) Urine Occult Blood 1+ H (Negative) Urine Nitrate Positive (Negative) Urine Bilirubin Negative (NEGATIVE) Urine Urobilinogen 0.2 (0.2) E.U./dL Ur Leukocyte Esterase 1+ H (NEGATIVE) Urine RBC 0-1/hpf (0-5/HPF) Urine WBC 30-100/hpf H (0-5/HPF) Ur Squamous Epith Cells 1-5 /hpf Calcium Oxalate Crystal Occasional H (None) Amorphous Sediment Urine Bacteria Many (>30) H (None) Urine Mucus 3+ H (Negative) Ur Culture Indicated? Specimen cultured Chlamy pneumoniae PCR Not detected (Not Detect) Adenovirus (PCR) Not detected (Not Detect) B.parapertussis DNA PCR Not detected (Not Detect) Coronavirus OC43 (PCR) Not detected (Not Detect) Coronavirus HKU1 (PCR) Not detected (Not Detect) Coronavirus 229E (PCR) Not detected (Not Detect) Coronavirus NL63 (PCR) Not detected (Not Detect) Human Metapneumovir PCR Not detected (Not Detect) Influenza Type A (PCR) Not detected (Not Detect) Influenza Type B (PCR) Not detected (Not Detect) Influenza A & B (PCR) (Negative) M. pneumoniae (PCR) Not detected (Not Detect) Parainfluenza 1 (PCR) Not detected (Not Detect) Parainfluenza 2 (PCR) Not detected (Not Detect) Parainfluenza 3 (PCR) Not detected (Not Detect) Parainfluenza 4 (PCR) Not detected (Not Detect) RSV (PCR) Not detected (Not Detect) Entero/Rhino (PCR) Not detected (Not Detect) Blood Type Antibody Screen Antibody Identification 06/23/18 06/23/18 06/23/18 Range/Units 01:58 06:25 06:25 WBC 6.8 (4.5-11.0) X10^3/uL RBC 4.63 (4.5-5.9) X10^6/uL Hgb 13.0 L (13.5-17.5) g/dL Hct 40.5 L (41-53) % MCV 87.4 (80-100) fL MCH 28.0 (26-34) PG MCHC 32.1 (30-36) % RDW 14.0 (11.6-14.8) % Plt Count 259 (150-400) X10^3/uL Neut % (Auto) (50-75) % Lymph % (Auto) (25-40) % [place] % (Auto) (3-14) % Eos % (Auto) (2-4) % Baso % (Auto) (0-2) % Neut # (Auto) (2231-5337) /uL Lymph # (Auto) (1602-3183) /uL [place] # (Auto) (0-900) /uL Eos # (Auto) (0-450) /uL Baso # (Auto) (0-100) /uL Total Counted 100 Seg Neutrophils % 89.0 H (38-70) % Lymphocytes % (Manual) 6.0 L (25-45) % Monocytes % (Manual) 4.0 (2-11) % Myelocytes % 1.0 H (-0) % Neutrophils # (Manual) 6052 H (3906-8678) /uL RBC Morphology Normal morphology D-Dimer (<230) ng/mL ABG pH (7.35-7.45) ABG pCO2 (35-45) mmHg ABG pO2 (80-100) mmHg ABG HCO3 (22-26) mmol/L ABG Total CO2 (21-31) mmol/L ABG O2 Saturation (95-100) % ABG Base Excess (-2-2) mmol/L FiO2 Sodium 140 (137-145) mmol/L Potassium 4.9 (3.4-5.1) mmol/L Chloride 113 H (98-107) mmol/L Carbon Dioxide 16 L (22-32) mmol/L BUN 61 H (9-20) mg/dL Creatinine 2.10 H (0.66-1.25) mg/dL Estimated GFR 31.5 L (>60) mL/min BUN/Creatinine Ratio 29.0 H (6-22) Glucose 109 (80-110) mg/dL Lactate (0.7-2.1) mmol/L Calcium 8.7 (8.4-10.2) mg/dL Magnesium 1.9 (1.6-2.3) mg/dL Total Bilirubin (0.2-1.3) mg/dL AST (17-59) IU/L ALT (21-72) IU/L Alkaline Phosphatase (38-126) U/L Total Creatine Kinase (55-170) U/L CK-MB (CK-2) CK-MB (CK-2) Rel Index Troponin I 0.075 H (0.01-0.034) ng/mL B-Natriuretic Peptide (<100) Total Protein (6.3-8.2) g/dL Albumin (3.5-5.0) g/dL Globulin (1.7-4.1) g/dL Albumin/Globulin Ratio (1.0-2.8) Procalcitonin (<0.5) ng/mL Urine Color Urine Appearance Urine pH (4.5-8.0) Ur Specific [place] (1.000-1.035) Urine Protein (Negative) Urine Glucose (UA) (Negative) g/dL Urine Ketones (NEGATIVE) Urine Occult Blood (Negative) Urine Nitrate (Negative) Urine Bilirubin (NEGATIVE) Urine Urobilinogen (0.2) E.U./dL Ur Leukocyte Esterase (NEGATIVE) Urine RBC (0-5/HPF) Urine WBC (0-5/HPF) Ur Squamous Epith Cells Calcium Oxalate Crystal (None) Amorphous Sediment Urine Bacteria (None) Urine Mucus (Negative) Ur Culture Indicated? Chlamy pneumoniae PCR (Not Detect) Adenovirus (PCR) (Not Detect) B.parapertussis DNA PCR (Not Detect) Coronavirus OC43 (PCR) (Not Detect) Coronavirus HKU1 (PCR) (Not Detect) Coronavirus 229E (PCR) (Not Detect) Coronavirus NL63 (PCR) (Not Detect) Human Metapneumovir PCR (Not Detect) Influenza Type A (PCR) (Not Detect) Influenza Type B (PCR) (Not Detect) Influenza A & B (PCR) (Negative) M. pneumoniae (PCR) (Not Detect) Parainfluenza 1 (PCR) (Not Detect) Parainfluenza 2 (PCR) (Not Detect) Parainfluenza 3 (PCR) (Not Detect) Parainfluenza 4 (PCR) (Not Detect) RSV (PCR) (Not Detect) Entero/Rhino (PCR) (Not Detect) Blood Type Antibody Screen Antibody Identification 06/23/18 06/23/18 06/23/18 Range/Units 06:25 16:09 21:38 WBC (4.5-11.0) X10^3/uL RBC (4.5-5.9) X10^6/uL Hgb (13.5-17.5) g/dL Hct (41-53) % MCV (80-100) fL MCH (26-34) PG MCHC (30-36) % RDW (11.6-14.8) % Plt Count (150-400) X10^3/uL Neut % (Auto) (50-75) % Lymph % (Auto) (25-40) % [place] % (Auto) (3-14) % Eos % (Auto) (2-4) % Baso % (Auto) (0-2) % Neut # (Auto) (8537-7289) /uL Lymph # (Auto) (3437-5915) /uL [place] # (Auto) (0-900) /uL Eos # (Auto) (0-450) /uL Baso # (Auto) (0-100) /uL Total Counted Seg Neutrophils % (38-70) % Lymphocytes % (Manual) (25-45) % Monocytes % (Manual) (2-11) % Myelocytes % (-0) % Neutrophils # (Manual) (5575-3242) /uL RBC Morphology D-Dimer (<230) ng/mL ABG pH 7.22 L* (7.35-7.45) ABG pCO2 38.7 (35-45) mmHg ABG pO2 59 L (80-100) mmHg ABG HCO3 16 L (22-26) mmol/L ABG Total CO2 17 L (21-31) mmol/L ABG O2 Saturation 85 L (95-100) % ABG Base Excess -12.0 L (-2-2) mmol/L FiO2 0.21 Sodium (137-145) mmol/L Potassium (3.4-5.1) mmol/L Chloride (98-107) mmol/L Carbon Dioxide (22-32) mmol/L BUN (9-20) mg/dL Creatinine 1.90 H (0.66-1.25) mg/dL Estimated GFR 35.3 L (>60) mL/min BUN/Creatinine Ratio (6-22) Glucose (80-110) mg/dL Lactate (0.7-2.1) mmol/L Calcium (8.4-10.2) mg/dL Magnesium (1.6-2.3) mg/dL Total Bilirubin (0.2-1.3) mg/dL AST (17-59) IU/L ALT (21-72) IU/L Alkaline Phosphatase (38-126) U/L Total Creatine Kinase (55-170) U/L CK-MB (CK-2) CK-MB (CK-2) Rel Index Troponin I 0.074 H (0.01-0.034) ng/mL B-Natriuretic Peptide (<100) Total Protein (6.3-8.2) g/dL Albumin (3.5-5.0) g/dL Globulin (1.7-4.1) g/dL Albumin/Globulin Ratio (1.0-2.8) Procalcitonin (<0.5) ng/mL Urine Color Urine Appearance Urine pH (4.5-8.0) Ur Specific [place] (1.000-1.035) Urine Protein (Negative) Urine Glucose (UA) (Negative) g/dL Urine Ketones (NEGATIVE) Urine Occult Blood (Negative) Urine Nitrate (Negative) Urine Bilirubin (NEGATIVE) Urine Urobilinogen (0.2) E.U./dL Ur Leukocyte Esterase (NEGATIVE) Urine RBC (0-5/HPF) Urine WBC (0-5/HPF) Ur Squamous Epith Cells Calcium Oxalate Crystal (None) Amorphous Sediment Urine Bacteria (None) Urine Mucus (Negative) Ur Culture Indicated? Chlamy pneumoniae PCR (Not Detect) Adenovirus (PCR) (Not Detect) B.parapertussis DNA PCR (Not Detect) Coronavirus OC43 (PCR) (Not Detect) Coronavirus HKU1 (PCR) (Not Detect) Coronavirus 229E (PCR) (Not Detect) Coronavirus NL63 (PCR) (Not Detect) Human Metapneumovir PCR (Not Detect) Influenza Type A (PCR) (Not Detect) Influenza Type B (PCR) (Not Detect) Influenza A & B (PCR) (Negative) M. pneumoniae (PCR) (Not Detect) Parainfluenza 1 (PCR) (Not Detect) Parainfluenza 2 (PCR) (Not Detect) Parainfluenza 3 (PCR) (Not Detect) Parainfluenza 4 (PCR) (Not Detect) RSV (PCR) (Not Detect) Entero/Rhino (PCR) (Not Detect) Blood Type Antibody Screen Antibody Identification 06/23/18 06/23/18 06/23/18 Range/Units 21:41 21:41 21:41 WBC 8.2 (4.5-11.0) X10^3/uL RBC 4.55 (4.5-5.9) X10^6/uL Hgb 12.8 L (13.5-17.5) g/dL Hct 40.1 L (41-53) % MCV 88.2 (80-100) fL MCH 28.1 (26-34) PG MCHC 31.9 (30-36) % RDW 14.2 (11.6-14.8) % Plt Count 267 (150-400) X10^3/uL Neut % (Auto) 92.3 H (50-75) % Lymph % (Auto) 5.8 L (25-40) % [place] % (Auto) 1.8 L (3-14) % Eos % (Auto) 0.0 L (2-4) % Baso % (Auto) 0.1 (0-2) % Neut # (Auto) 7600 H (6313-2146) /uL Lymph # (Auto) 500 L (8295-8895) /uL [place] # (Auto) 200 (0-900) /uL Eos # (Auto) 0 (0-450) /uL Baso # (Auto) 0 (0-100) /uL Total Counted Seg Neutrophils % (38-70) % Lymphocytes % (Manual) (25-45) % Monocytes % (Manual) (2-11) % Myelocytes % (-0) % Neutrophils # (Manual) (3785-8949) /uL RBC Morphology D-Dimer (<230) ng/mL ABG pH (7.35-7.45) ABG pCO2 (35-45) mmHg ABG pO2 (80-100) mmHg ABG HCO3 (22-26) mmol/L ABG Total CO2 (21-31) mmol/L ABG O2 Saturation (95-100) % ABG Base Excess (-2-2) mmol/L FiO2 Sodium 140 (137-145) mmol/L Potassium 5.2 H (3.4-5.1) mmol/L Chloride 112 H (98-107) mmol/L Carbon Dioxide 17 L (22-32) mmol/L BUN 73 H (9-20) mg/dL Creatinine 2.40 H (0.66-1.25) mg/dL Estimated GFR 27.0 L (>60) mL/min BUN/Creatinine Ratio 30.4 H (6-22) Glucose 138 H (80-110) mg/dL Lactate (0.7-2.1) mmol/L Calcium 8.8 (8.4-10.2) mg/dL Magnesium (1.6-2.3) mg/dL Total Bilirubin 0.3 (0.2-1.3) mg/dL AST 39 (17-59) IU/L ALT 45 (21-72) IU/L Alkaline Phosphatase 55 (38-126) U/L Total Creatine Kinase (55-170) U/L CK-MB (CK-2) CK-MB (CK-2) Rel Index Troponin I 0.205 H* (0.01-0.034) ng/mL B-Natriuretic Peptide (<100) Total Protein 6.2 L (6.3-8.2) g/dL Albumin 3.2 L (3.5-5.0) g/dL Globulin 3.0 (1.7-4.1) g/dL Albumin/Globulin Ratio 1.1 (1.0-2.8) Procalcitonin (<0.5) ng/mL Urine Color Urine Appearance Urine pH (4.5-8.0) Ur Specific [place] (1.000-1.035) Urine Protein (Negative) Urine Glucose (UA) (Negative) g/dL Urine Ketones (NEGATIVE) Urine Occult Blood (Negative) Urine Nitrate (Negative) Urine Bilirubin (NEGATIVE) Urine Urobilinogen (0.2) E.U./dL Ur Leukocyte Esterase (NEGATIVE) Urine RBC (0-5/HPF) Urine WBC (0-5/HPF) Ur Squamous Epith Cells Calcium Oxalate Crystal (None) Amorphous Sediment Urine Bacteria (None) Urine Mucus (Negative) Ur Culture Indicated? Chlamy pneumoniae PCR (Not Detect) Adenovirus (PCR) (Not Detect) B.parapertussis DNA PCR (Not Detect) Coronavirus OC43 (PCR) (Not Detect) Coronavirus HKU1 (PCR) (Not Detect) Coronavirus 229E (PCR) (Not Detect) Coronavirus NL63 (PCR) (Not Detect) Human Metapneumovir PCR (Not Detect) Influenza Type A (PCR) (Not Detect) Influenza Type B (PCR) (Not Detect) Influenza A & B (PCR) (Negative) M. pneumoniae (PCR) (Not Detect) Parainfluenza 1 (PCR) (Not Detect) Parainfluenza 2 (PCR) (Not Detect) Parainfluenza 3 (PCR) (Not Detect) Parainfluenza 4 (PCR) (Not Detect) RSV (PCR) (Not Detect) Entero/Rhino (PCR) (Not Detect) Blood Type Antibody Screen Antibody Identification 06/23/18 06/23/18 Range/Units 21:41 22:57 WBC (4.5-11.0) X10^3/uL RBC (4.5-5.9) X10^6/uL Hgb (13.5-17.5) g/dL Hct (41-53) % MCV (80-100) fL MCH (26-34) PG MCHC (30-36) % RDW (11.6-14.8) % Plt Count (150-400) X10^3/uL Neut % (Auto) (50-75) % Lymph % (Auto) (25-40) % [place] % (Auto) (3-14) % Eos % (Auto) (2-4) % Baso % (Auto) (0-2) % Neut # (Auto) (7273-3295) /uL Lymph # (Auto) (6617-3826) /uL [place] # (Auto) (0-900) /uL Eos # (Auto) (0-450) /uL Baso # (Auto) (0-100) /uL Total Counted Seg Neutrophils % (38-70) % Lymphocytes % (Manual) (25-45) % Monocytes % (Manual) (2-11) % Myelocytes % (-0) % Neutrophils # (Manual) (3505-0266) /uL RBC Morphology D-Dimer (<230) ng/mL ABG pH 7.25 L* (7.35-7.45) ABG pCO2 36.0 (35-45) mmHg ABG pO2 118 H (80-100) mmHg ABG HCO3 16 L (22-26) mmol/L ABG Total CO2 17 L (21-31) mmol/L ABG O2 Saturation 98 (95-100) % ABG Base Excess -12.0 L (-2-2) mmol/L FiO2 0.35 Sodium (137-145) mmol/L Potassium (3.4-5.1) mmol/L Chloride (98-107) mmol/L Carbon Dioxide (22-32) mmol/L BUN (9-20) mg/dL Creatinine (0.66-1.25) mg/dL Estimated GFR (>60) mL/min BUN/Creatinine Ratio (6-22) Glucose (80-110) mg/dL Lactate (0.7-2.1) mmol/L Calcium (8.4-10.2) mg/dL Magnesium (1.6-2.3) mg/dL Total Bilirubin (0.2-1.3) mg/dL AST (17-59) IU/L ALT (21-72) IU/L Alkaline Phosphatase (38-126) U/L Total Creatine Kinase (55-170) U/L CK-MB (CK-2) CK-MB (CK-2) Rel Index Troponin I (0.01-0.034) ng/mL B-Natriuretic Peptide (<100) Total Protein (6.3-8.2) g/dL Albumin (3.5-5.0) g/dL Globulin (1.7-4.1) g/dL Albumin/Globulin Ratio (1.0-2.8) Procalcitonin (<0.5) ng/mL Urine Color Urine Appearance Urine pH (4.5-8.0) Ur Specific [place] (1.000-1.035) Urine Protein (Negative) Urine Glucose (UA) (Negative) g/dL Urine Ketones (NEGATIVE) Urine Occult Blood (Negative) Urine Nitrate (Negative) Urine Bilirubin (NEGATIVE) Urine Urobilinogen (0.2) E.U./dL Ur Leukocyte Esterase (NEGATIVE) Urine RBC (0-5/HPF) Urine WBC (0-5/HPF) Ur Squamous Epith Cells Calcium Oxalate Crystal (None) Amorphous Sediment Urine Bacteria (None) Urine Mucus (Negative) Ur Culture Indicated? Chlamy pneumoniae PCR (Not Detect) Adenovirus (PCR) (Not Detect) B.parapertussis DNA PCR (Not Detect) Coronavirus OC43 (PCR) (Not Detect) Coronavirus HKU1 (PCR) (Not Detect) Coronavirus 229E (PCR) (Not Detect) Coronavirus NL63 (PCR) (Not Detect) Human Metapneumovir PCR (Not Detect) Influenza Type A (PCR) (Not Detect) Influenza Type B (PCR) (Not Detect) Influenza A & B (PCR) (Negative) M. pneumoniae (PCR) (Not Detect) Parainfluenza 1 (PCR) (Not Detect) Parainfluenza 2 (PCR) (Not Detect) Parainfluenza 3 (PCR) (Not Detect) Parainfluenza 4 (PCR) (Not Detect) RSV (PCR) (Not Detect) Entero/Rhino (PCR) (Not Detect) Blood Type O Positive Antibody Screen Positive Antibody Identification Anti-K Point of Care Testing Glucose POC 122 Urine Dip Bedside Urine Glucose Negative Bedside Urine Bilirubin - Negative Bedside Urine Ketone - Negative Urine Specific [place] 1.015 Bedside Urine Occult Blood + Bedside Urine pH 7.5 Bedside Urine Protein +++ 300 Bedside Urine Urobilinogen +/- 1mg Bedside Urine Nitrite - Negative Bedside Urine Leukocytes ++ 125 Esterase Discharge Plan Departure Patient Disposition: Admitted As Inpatient Clinical Impression: Pneumonia Qualifiers: Pneumonia type: due to unspecified organism Laterality: bilateral Lung location: lower lobe of lung Qualified Code(s): J18.1 - Lobar pneumonia, unspeci fied organism Discharge Date/Time: 06/22/18 18:35 Interventions: ED Discharge Assessment Last Done: 06/22/18 18:33 Admit Date/Time: 06/23/18 11:02 Admit Provider: Rubi Szymanski <Wayne Boothe DO - Last Filed: 06/27/18 07:36> Cosign ED Attending Terry Attestation: I was available for consultation during this patient's emergency department encounter
[2018-06-22] MEDS: CEFTRIAXONE 1 GM/50 ML FROZ.PIGGY IV (19:17)
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
--- NOTE | 2018-06-22 20:53 | PC.NURSE ---
Addendum entered by Yvette Olvera R.N. 06/22/18 22:37: Photographs taken of pt's excoriated buttocks and scrotum. Zinc barrier cream applied. Pt's bp 165/75 with HR 75 when FUR STYLIST informed this bid writer pt had 7 beat run of vtach. Nifedipine held as current vital signs do not meet vital sign criteria in label comments. 02 @1L per NC sats 100%.Villa bag changed as pt has significant sediment in bag. [facility] hospitalist made aware of these events. Waffle cushion placed under pt's buttocks. Original Note: Addendum entered by Yvette Olvera R.N. 06/22/18 21:21: Hospitalist orders stat ABG and makes pt NPO. No current orders for IV fluids per [facility]. Tele placed as per orders from [facility] R[facility]T. in [facility] in and unable to draw ABG. Hospitalist was made aware. Lab in to draw blood. Original Note: Pt to room 213 from [facility] awake, alert, conversant. Pt is wheelchair bound and requires max assistance with four staff members to transfer from stretcher to bed. Positioned off of buttocks. Pt smells strongly of urine. 02 sats on room air 92% via ear probe. Pt expresses desire to eat and this was discussed with offgoing and ongoing hospitalists. Verbal order to proceed with heart healthy diet. Pt was set up, but requires assistance d/t contractures of hands BL.
[2018-06-22 21:39] LABS: Fractionated Inspired Oxygen 21; HCO3 ABG 15 mmol/L (22-26); Oxygen Saturation ABG 93 % (95-100); PCO2 ABG 30.6 mmHg (35-45); PO2 ABG 71 mmHg (80-100); TCO2 ABG 16 mmol/L (21-31)
[2018-06-22 21:42] LABS: Lactate 2HR (Lactic Acid Rflx) 0.9 mmol/L (0.7-2.1)
[2018-06-22 21:46] LABS: Appearance Urine UA TURBID; Bilirubin Urine UA NEGATIVE (NEGATIVE); Color Urine UA YELLOW; Glucose Urine UA NEGATIVE (Negative); Ketones Urine UA NEGATIVE (NEGATIVE); Leukocyte Esterase Urine UA 1+ (NEGATIVE); Nitrite Urine UA POSITIVE (Negative); Occult Blood Urine UA 1+ (Negative); Protein Urine UA 3+ (Negative); Specific Gravity Urine UA 1.015 (1.000-1.035); Urobilinogen Urine UA 0.2 E.U./dL (0.2); pH Urine UA 7.5 (4.5-8.0)
[2018-06-22 21:55] LABS: Troponin I 0.075 ng/mL (0.01-0.034)
[2018-06-22 21:55] LABS: Bacteria Urine Many (>30); Calcium Oxalate Crystals Urine Occasional; Culture Indicated Urine Specimen Cultured; Mucus Urine 3+ (Negative); RBC Urine 0-1/HPF (0-5/HPF); Squamous Epithelial Cell Urine 1-5 /HPF; WBC Urine 30-100/HPF (0-5/HPF)
[2018-06-22] MEDS: SODIUM CHLORIDE 0.9% 1,000 ML 80 ML IV (22:26)
[2018-06-22] MEDS: GABAPENTIN 100 MG CAPSULE 200 MG PO (22:30)
[2018-06-22] MEDS: NIFEdipine 10 MG CAPSULE PO (23:46)
[2018-06-23] VITALS (17 sets, daily range): BP systolic 135–190; BP diastolic 73–119; PULSE 63–81; RESP 10–32; TEMP 32–36.8; O2SAT 91–100; BMI 17.4
--- NOTE | 2018-06-23 | DI.RAD.S_ITS ---
PROCEDURE: XR CHEST 1V INDICATIONS: SOB, large bilateral pleural eff on echo? TECHNIQUE: One view of the chest was acquired. COMPARISON: [facility], CR, XR CHEST 1V, 06/22/2018, 13:45. FINDINGS: Surgical changes and devices: None. Lungs and pleura: There is increased left lower lobe and retrocardiac opacity compared to prior exam. Increased right basilar opacity is also present. Increased pulmonary vascular is present. There is blunting of the costophrenic angles bilaterally. Mediastinum: Mediastinal contours appear normal. Heart size is normal. Bones and chest wall: No suspicious bony lesions. Overlying soft tissues appear unremarkable. IMPRESSION: 1. Mild bilateral pleural effusions, left greater than right mildly increased compared to prior exam. There is a superimposed atelectasis and/or pneumonia cannot be excluded particularly on the left. Dictated by: Christa Cruz M.D. on 06/23/2018 at 20:40 Approved by: Christa Cruz M.D. on 06/23/2018 at 20:41
--- NOTE | 2018-06-23 | DI.CT.S_ITS ---
PROCEDURE: CT CHEST WO CON INDICATIONS: dypnea, pleural effusion, empyema? TECHNIQUE: Noncontrast 5 mm thick sections acquired from the pulmonary apices to the posterior costophrenic angles. 7 mm thick coronal and sagittal MIP reformats were then acquired. For radiation dose reduction, the following was used: automated exposure control, adjustment of mA and/or kV according to patient size. COMPARISON: [facility], CR, XR CHEST 1V, 06/23/2018, 20:11. [facility], CT, PE STUDY (CTA CHEST), 01/27/2015, 12:26. FINDINGS: Image quality: Excellent. Lungs and pleura: Mild bilateral pleural effusions with areas of superimposed consolidation. Mediastinum: Heart size is normal. No pericardial effusion. Mildly prominent mediastinal lymph nodes are present the largest at the alfonzo measuring 15 mm in short axis. Thoracic aorta and central pulmonary arteries are normal in size. Esophagus is normal in caliber. No hiatal hernia. Bones and chest wall: No suspicious bony lesions. No vertebral body compression fractures. No axillary or supraclavicular adenopathy by size criteria. Thyroid gland demonstrates areas of low attenuation and calcification bilaterally, unchanged. Abdomen: Significant right renal atrophy is noted. Visualized upper abdominal solid organs and bowel loops appear normal in the absence of contrast. IMPRESSION: 1. Mild bilateral pleural effusions a superimposed dependent changes representing atelectasis or potentially developing pneumonia. 2. Mild mediastinal adenopathy possibly reactive in nature. Dictated by: Christa Cruz M.D. on 06/23/2018 at 21:33 Approved by: Christa Cruz M.D. on 06/23/2018 at 21:35
--- NOTE | 2018-06-23 | DI.RAD.S_ITS ---
PROCEDURE: XR CHEST 1V INDICATIONS: UPRIGHT in anticipation of possible tap TECHNIQUE: One view of the chest was acquired. COMPARISON: [facility], CR, XR CHEST 1V, 06/23/2018, 20:11. FINDINGS: Surgical changes and devices: None. Lungs and pleura: Small bilateral pleural fluid collections, right greater than left are stable compared to 06/23/18. Patchy opacity in the right lung concerning for pneumonia is unchanged. Cephalization of the pulmonary vasculature and Loni B-lines with pulmonary edema are stable. Mediastinum: Mediastinal contours appear normal. Heart size is normal. Bones and chest wall: No suspicious bony lesions. Overlying soft tissues appear unremarkable. IMPRESSION: Stable examination compared to 06/23/18. Small bilateral pleural effusions, pulmonary edema and right lung pneumonia versus atelectasis not significantly changed. Dictated by: Gloria Mckeon MD, PhD on 06/24/2018 at 8:37 Approved by: Gloria Mckeon MD, PhD on 06/24/2018 at 8:39
--- NOTE | 2018-06-23 | DI.ECHO.S_ITS ---
[place] [facility]---------+ [facility] +---------+ : : [address] : : : : [id number] : : : : Phone: [phone]+ Echocardiogram Report + + :Name: JESSICA FOUNTAIN Study Date: 06/23/2018 Height: 72 in : :[facility] Weight: 128 lb : : Gender: Male BSA: 1.8 m2 : :: 1950 Age: 67 yrs BP: 180/119 mmHg: :Reason For Study: Congestive Heart Failure : : Performed By: Mary Moura : :Referring: MAYA SOLITARIO : + + Interpretation Summary The left ventricle is normal in size. Left ventricular wall thickness is mildly increased. The left ventricular ejection fraction is normal. The ejection fraction is estimated to be 60-65%. There are no obvious focal wall motion abnormalities noted but poor endocardial definition reduces the sensitivity for the detection of such. Diastolic function could not be accurately assessed due to unobtainable data. Borderline right ventricular enlargement. Right ventricular systolic function is borderline reduced. The right ventricular systolic pressure is estimated to be at least 41 mmHg based on an estimated right atrial pressure of 8 mm Hg. The left atrial size is normal. The right atrium grossly appears normal in size. There is mild mitral regurgitation. There is mild to moderate tricuspid regurgitation. There is no other significant valvular heart disease. The aortic root is normal size. There is no pericardial effusion. There is a very large right-sided pleural effusion. There is a large left-sided pleural effusion. Procedure: A two-dimensional transthoracic echocardiogram with color flow and Doppler was performed. The study quality was technically limited. There is no prior echocardiogram noted for this patient. The patient was in normal sinus rhythm during the exam. Left Ventricle: The left ventricle is normal in size. Left ventricular wall thickness is mildly increased. The left ventricular ejection fraction is normal. The ejection fraction is estimated to be 60-65%. There are no obvious focal wall motion abnormalities noted but poor endocardial definition reduces the sensitivity for the detection of such. Diastolic function could not be accurately assessed due to unobtainable data. Right Ventricle: Borderline right ventricular enlargement. Right ventricular systolic function is borderline reduced. Atria: The left atrial size is normal. The right atrium grossly appears normal in size. The interatrial septum is intact with no evidence for an atrial septal defect. Mitral Valve: The mitral valve leaflets appear mildly thickened, but open well. There is mild mitral regurgitation. Aortic Valve: The aortic valve is trileaflet. The aortic valve opens well. No aortic regurgitation is present. Tricuspid Valve: The tricuspid valve leaflets are thin and pliable. There is mild to moderate tricuspid regurgitation. The right ventricular systolic pressure is estimated to be at least 41 mmHg based on an estimated right atrial pressure of 8 mm Hg. Pulmonic Valve: The pulmonic valve is not well seen, but is grossly normal. There is trace pulmonic regurgitation. There is no other significant valvular heart disease. Great Vessels: The aortic root is normal size. The dimensions of the ascending aorta are normal. The ascending aorta is normal in size. The IVC is dilated (diameter is greater than 2.1 cm) yet it collapses greater than 50% with a sniff. This suggests a right atrial pressure of 8 mm Hg. Pericardium/ Pleura There is no pericardial effusion. There is a very large right-sided pleural effusion. There is a large left-sided pleural effusion. MMode/2D Measurements & Calculations LVIDd: 4.2 cm Ao root diam: 3.3 cm LVIDs: 3.0 cm Aortic Jxn: 2.7 cm FS: 27.5 % asc Aorta Diam: 3.4 cm EPSS: 0.88 cm Ao Arch Diam (Prox Trans): 2.9 cm IVSd: 1.2 cm LVPWd: 0.85 cm LV dee. diameter/BSA (cm/m^2): 2.4 LV sys. diameter/BSA (cm/m^2): 1.7 LA dimension: 3.1 cm IVC diam: 2.0 cm Doppler Measurements & Calculations TR max chiara: 287.2 cm/sec TR max P.0 mmHg PA V2 max: 67.1 cm/sec PA V2 mean: 41.9 cm/sec PA mean P.82 mmHg PA Accel Time: 0.06 sec Reading Physician:05:54 PM
[2018-06-23 00:46] LABS: Adenovirus Not Detected (Not Detect); Coronavirus 229E Not Detected (Not Detect); Coronavirus HKU1 Not Detected (Not Detect); Coronavirus NL 63 Not Detected (Not Detect); Coronavirus OC43 Not Detected (Not Detect); Human Metapneumovirus Not Detected (Not Detect); Human Rhinovirus/Enterovirus Not Detected (Not Detect); Influenza A Not Detected (Not Detect); Influenza B Not Detected (Not Detect); Parainfluenza Virus 1 Not Detected (Not Detect)
[2018-06-23 00:47] LABS: Bordetella pertussis Not Detected (Not Detect); Chlamydophila pneumoniae Not Detected (Not Detect); Mycoplasma pneumoniae Not Detected (Not Detect); Parainfluenza Virus 2 Not Detected (Not Detect); Parainfluenza Virus 3 Not Detected (Not Detect); Parainfluenza Virus 4 Not Detected (Not Detect); Respiratory Syncytial Virus Not Detected (Not Detect)
[2018-06-23 02:29] LABS: Troponin I 0.075 ng/mL (0.01-0.034)
[2018-06-23 07:04] LABS: Hematocrit 40.5 % (41-53); Mean Corpuscular HGB Conc 32.1 % (30-36); Mean Corpuscular Volume 87.4 fL (80-100); Platelet Count 259 X10^3/uL (150-400); Red Blood Cell Count 4.63 X10^6/uL (4.5-5.9); White Blood Cell Count 6.8 X10^3/uL (4.5-11.0)
[2018-06-23 07:09] LABS: Blood Urea Nitrogen 61 mg/dL (9-20); Calcium 8.7 mg/dL (8.4-10.2); Carbon Dioxide 16 mmol/L (22-32); Chloride 113 mmol/L (98-107); Estimated Glomerular Filt Rate 31.5 mL/min (>60); Glucose 109 mg/dL (80-110); HEMOLYSIS < 15 (0-50); Magnesium 1.9 mg/dL (1.6-2.3); Potassium 4.9 mmol/L (3.4-5.1); Sodium 140 mmol/L (137-145)
[2018-06-23 07:31] LABS: Estimated Glomerular Filt Rate 35.3 mL/min (>60)
[2018-06-23 07:54] LABS: Neutrophils Absolute Manual 6052 /uL (3000-5900); Total Cells Counted 100
[2018-06-23 07:55] LABS: RBC Morphology Normal Morphology
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
[2018-06-23] MEDS: ALBUTEROL/IPRATROPIUM 3 ML AMPUL INH (09:05)
[2018-06-23] MEDS: levoFLOXacin 750 MG/150 ML PIGGYBACK 100 MG IV (09:53)
[2018-06-23] MEDS: HEPARIN 5,000 UNIT/ML VIAL 5000 UNIT SUBCUT ×2 (09:53→21:10)
--- NOTE | 2018-06-23 10:26 | PM.PN.1 ---
Subjective Date Patient Seen: 06/23/18 Interval history: Kahlil Bailey is a 67-year-old male with a past medical history significant for paraplegia since 1977 with neurogenic bladder and suprapubic catheter, COPD and peripheral arterial disease who presented with abrupt onset and progressive worsening shortness of breath. The patient is lying in bed and appears uncomfortable. He endorses shortness of breath and cough. Ordered lasix 20 IV x 1 and morphine. He also reports he hasnt slept in days as he is afraid he is going to . He has no other complaints and denies headache, chest pain, abdominal pain, nausea, vomiting, fever, chills, diarrhea or constipation. His suprapubic catheter is leaking implant to discuss with surgery. Exam Vital Signs (past 8 hours): Fraction of Inspired Oxygen 35 Oxygen Delivery Method High Flow Nasal Cannula Oxygen Flow Rate 2 Narrative Exam Narrative: General: Older male lying in bed and in no acute distress, appears uncomfortable and tachypneic, severely emaciated and thin, appropriately interactive HEENT: Normocephalic, atraumatic. External ears without defect. Pupils equal, round, and reactive to light. Anicteric sclerae, moist conjunctivae, and no lid lag. Oropharynx free of erythema and cobble stoning with moist mucosa. Neck: Supple with full range of motion. No lymphadenopathy or thyromegaly. Cardiovascular: Regular rate and rhythm without murmurs, rubs, or gallops appreciated. Pectus excavatum present. Pulmonary: Diminished throughout but clear to auscultation bilaterally with bibasilar crackles and occasional wheeze. Normal respiratory effort with no use of accessory muscles. Abdomen: Bowel tones present. Soft, nontender, nondistended. No hepatosplenomegaly or masses appreciated. Extremities: No clubbing, cyanosis, or edema. Skin: Normal temperature, turgor, and texture; no rash, ulcers, or subcutaneous nodules appreciated. Neurological: Paraplegic in able to computer help desk specialist grab bar to sit up and to reposition. Objective Labs Result Diagrams: 06/23/18 21:41 06/23/18 21:41 Assessment & Plan Assessment & Plan narrative: Kahlil Bailey is a 67-year-old male with a past medical history significant for paraplegia since 1977 with neurogenic bladder and suprapubic catheter, COPD and peripheral arterial disease who presented with abrupt onset and progressive worsening shortness of breath. 1. Acute hypoxemic respiratory failure, present on admission. Active. -Patient presented tachypneic and dyspneic, but no evidence of hypoxia per continuous pulse ox monitor -History of COPD, tobacco dependence (currently smokes at least to 1/2 ppd equivalent w/ cigarettes and tobacco via pipe), and recurrent pneumonia. -Chest x-ray demonstrate bilateral perihilar infiltrates (R > L), left basilar consolidation, chronic interstitial prominence, abnormal, concerning for pneumonia. -Received 125 mg solumedrol in ED. -ABG demonstrated: pH 7.299 pCO2 30.6 pO2 71 HCO3 15 (SpO2 93% on RA) which is primary metabolic acidosis with normal AG and full respiratory compensation. -Consulted RT for evaluation and treatment. Continue duo nebs 4 times daily while awake and albuterol nebs every 2 hours as needed for shortness of breath and wheezing. Continue supplemental oxygen with oxygen saturation goal 88-92%. -Will suspend cardiac diet and make NPO d/t moderate respiratory distress w/ high risk for decompensation. -Ordered Lasix 20 mg IV x1 and morphine as needed for tachypnea. 2. Acute left lower lobe pneumonia, present on admission. Active. -Potentially 2/2 pseudomonus species. 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 Potential for MRSA given open sacral wound. -Chest x-ray demonstrated bilateral perihilar infiltrates (R > L), left basilar consolidation, chronic interstitial prominence. -WBC 11.4 PCT < 0.05 HGB 13.8 Trop 0.061 BNP 1150 D-Dimer 654 ng/dL -Ordered complete pneumonia workup including: Respiratory viral PCR, strep pneumoniae and Legionella urine antigens, sputum culture and blood cultures x2. -Continue levofloxacin x7 days. Low threshold to broaden antibiotics coverage. 3. Acute kidney injury, present on admission. Improving. -Baseline creatinine 0.7-0.9. Initial creatinine on admission 1.9. -Avoid nephrotoxic agents. Decreased gabapentin 200 mg x1 tonight, adjusted for CrCl -IVF NS gentle hydration at 80 ml/hr. -Normalize hypertension, optimize renal perfusion. -Replete electrolytes accordingly. 4. COPD with acute exacerbation, present on admission. Active. -Received nebulizer tx and solumedrol 125 mg in ED. Continue prednisone 40 mg daily x5 days. -Consulted respiratory therapy for evaluation and treatment. Oxygen saturation goal 88% and greater. 5. Acute type 2 [place], present on admission. Active. -Likely in the setting of demand ischemia and KIAH -Elevated Troponin, 0.061. Continue to monitor serial troponins. -EKG 06/22/18 at 1602: SR (v-rate 88), possible left atrial enlargement. -Continue to monitor closely on telemetry and for angina, angina -like / ACS symptoms. 6. Hypertensive urgency, acute, present on admission. Active. -In setting of C6 paraplegia and suspected UTI. -Nifedipine IR 10 mg prn Q20 minutes for SBP > 180 and/or DBP > 110; up to a total dose of 30 mg. 7. Acute non-anion gap metabolic acidosis, present on admission. Active. -Secondary to acute renal failure. -Treat underlying cause as above. Correct metabolic abnormalities. 8. Sacral decubutis ulcer stage III, chronic, present on admission -Consulted wound care, pending. -Reposition patient Q2H. -Alleviate pressure of bony prominences, if prolonged stay may need to consider a special bed to help. 9. Tobacco dependence, chronic condition, present on admission. Stable. -Current every day smoker. -Ordered nicotine patch as needed for nicotine withdrawal. -Counseled patient on smoking cessation. Disposition: Patient's status is tenuous as he continues to be tachypneic and will begin diuresis. Quality VTE Deep Vein Thrombosis/Pulmonary Embolism Present on Admission: No
--- NOTE | 2018-06-23 12:04 | PC.NURSE ---
Addendum entered by Enid Diego R.N. 06/23/18 14:47: Suprapubic catheter leaking at insertion site. Surrounding area cleansed with bath wipes, then NS and gauze, pat dry. Skin prep applied to act as barrier then drain gauze applied around catheter tube. Pt did not want catheter securing device. Repositioned frequently in bed. Pt uses trapeze to shift his upper body. had a few spoonfuls of chicken noodle soup without difficulty. Tolerating water. Drank 1/2 bottle of chocolate ensure per suggestion by Well Logging Operator Mud Analysis. Original Note: Day Shift- Spoke with Dr. Szymanski at 1140, clarify need for pt to be NPO, new diet order rec'd for heart healthy. Started on Prednisone per SENIOR APPLICATIONS DEVELOPER note from 06/22. Verbal order rec'd from Dr. szymanski. Pt repositioned in bed supported with waffle cushion and pillows. Also using bed turning feature on BETSY bed. Pt prefers to be turned on left side or on back, motivated to offload right buttock area. Right buttock/coccyx area covered with white zinc cream. Redness, no drainage, edges of redness is blanchable. Pt weaned off O2 NC this AM, on continuous O2 monitoring. O2 sat 98% on RA, RR in the 20's. Did have one episode this AM around 0750 where pt stated it was hard to breath. Pt repositioned in bed and pt stated feeling better, O2 sat 98% on 2LNC, RR 32 per MANAGER UROLOGY at that time. Placed over-bed trapeze for pt per his request as he uses this at home as well.
[2018-06-23] MEDS: SODIUM CHLORIDE 0.9% 1,000 ML 80 ML IV (12:44)
[2018-06-23] MEDS: predniSONE 20 MG TABLET 40 MG PO (12:46)
[2018-06-23] MEDS: LACTOBACILLUS ACIDOPHILUS TABLET 1 EACH PO ×2 (12:46→17:21)
--- NOTE | 2018-06-23 14:58 | PT.IPTN ---
Physical Therapy Treatment Note M3 PT-IP Subjective Start: 06/23/18 14:55 Freq: NEEDED Status: Active Protocol: Document 06/23/18 14:55 AB (Rec: 06/23/18 14:58 AB [id number]) Subjective Physical Therapy Visit Type Type Patient Refusal Notes checked pt for PT eval. pt stated that his brother helps him at home and also has a 5 hour caregiver. stated that he is usually in bed and only get out of the bed into his manual w/c when he has a doctor's appointment. pt refused PT. asked pt if PT can check on him tomorrow but pt stated that he will not do it. pt requested to d/c PT eval order.
[2018-06-23] MEDS: FUROSEMIDE 20 MG/2 ML VIAL IV (16:05)
[2018-06-23] MEDS: MORPHINE 2 MG/ML INJ 1 MG IV ×2 (16:14→20:19)
--- NOTE | 2018-06-23 16:31 | OT.IP.TRT ---
Occupational Therapy Treatment Note M3 OT- IP Subjective and Pain Start: 06/23/18 16:18 Freq: Status: Active Protocol: Document 06/23/18 16:20 [facility] (Rec: 06/23/18 16:31 [facility] [id number]) OT- Subjective Occupational Therapy Visit Type Type Patient Refusal Notes Pt states does not want any therapy at this time as per pt mainly stays in bed at home except for hospital appointments- pt did have questions for OT to how to manage the TV as right hand in fist and not able to use his fingers. Based on the call light/TV remote pt will have to ask for assist at all times as unable to use controls. Did request from nursing to get large lukas pad for pt to call for assist. Therefore discharge OT eval orders. Pt states brother asissts at home and also has caregivers 5 hours during the day.
--- NOTE | 2018-06-23 16:35 | PC.NURSE ---
Addendum entered by Yvette Olvera R.N. 06/23/18 22:06: Pt transferred to ICU and report given to JERRY Mccain. Original Note: Addendum entered by Yvette Olvera R.N. 06/23/18 21:03: BP rechecked s/p nifedipine administration for 135/79. Hospitalist Yessenia involved in pt's care and present @ bedside. Informs this data analyst report writer plans to move pt to ICU. Original Note: Addendum entered by Yvette Olvera R.N. 06/23/18 20:06: Pt now beginning to produce urine per suprapubic catheter. 125 cc's pale yellow urine emptied from lester bag. BP188/93, HR 68 with respiratory rate labored @ 22 breaths per minute. 02 2l nc sats 97%. Tight breath sounds to all posterior acosta. Pt is dyspneic using accessory muscles with respiratory effort. Repositioned in bed with head of bed elevated as pt will allow. Is resistant to head elevated past 30-40 degrees. All of these findings were discussed with Dr. Lafleur via telephone. Per Dr. Lafleur, JANI Yessenia was informed by this data analyst report writer pt has large pleural effusions BL per diagnostic imaging. Original Note: Dr. Lafleur makes rounds @ change of shift. Orders pt's suprapubic catheter be replaced. Policy was provided to Jaelyn Monique R.N, who states has replaced suprapubic catheters and is agreeable to performing this task. Pt informed and verbal consent provided by pt. Observing protocol, 24 Mosotho catheter was inserted following removal of existing suprapubic catheter by JERRY Christy. Balloon inflated with 30 cc's normal saline. No return of urine, but pt verbalizes feels as though bladder is empty and placement feels accurate. Will monitor. Cardiac echo in progress.
--- NOTE | 2018-06-23 16:40 | PC.NURSE ---
1600: Pt stopped fluids, BP 180/119, o2 100%, Pulse [address] Dr. Lafleur ordered 20mg of lasix, and 1mg Morphine given for pain. Echo ordered, suprapubic cath changed w/ 24 nigerien.
[2018-06-23 16:46] LABS: Troponin I 0.074 ng/mL (0.01-0.034)
[2018-06-23] MEDS: NIFEdipine 10 MG CAPSULE PO (20:04)
--- NOTE | 2018-06-23 20:41 | P.EN_ITS ---
Date Patient Seen: 06/23/18 Time Patient Seen: 20:30 Patient is dyspneic and tachypneic. He is not overtly hypoxic, however is wearing 2 L of oxygen. Work of breathing significantly increased from yesterday and what sounds like from earlier in the day. Now, over the course of 24 hr developed pleural effusions. Patient seen at bedside. Lung sounds diminished. Vital signs, BP and HR stable. Tachypneic w/ subcostal retraction. SpO2 93% on 2L. Patient's condition is guarded and rapidly deteriorating. Denies chest pain, palpitations, dizziness, lightheadedness. Cognition is at his baseline. Awake and alert and oriented x3. VS 2119: BP 153/85 HR 67 RR 44 SpO2 93% Patient had repeat chest x-ray ordered this evening, findings reviewed below CXR, 06/23/2018 at 8:40 p.m. Mild bilateral pleural effusions, left greater than right mildly increased compared to prior exam. There is a superimposed atelectasis and/or pneumonia cannot be excluded particularly on the left. Echo completed earlier in the day also reviewed Echo, 06/23/2018 The left ventricle is normal in size. Left ventricular wall thickness is mildly increased. The left ventricular ejection fraction is normal. The ejection fraction is estimated to be 60-65%. There are no obvious focal wall motion abnormalities noted but poor endocardial definition reduces the sensitivity for the detection of such. Diastolic function could not be accurately assessed due to unobtainable data. Borderline RV enlargement. RV systolic function is borderline reduced. The right ventricular systolic pressure is estimated to be at least 41 mmHg based on an estimated right atrial pressure of 8 mm Hg. The left atrial size is normal. The right atrium grossly appears normal in size. There is mild mitral regurgitation. There is mild to moderate tricuspid regurgitation. There is no other significant valvular heart disease. The aortic root is normal size. There is no pericardial effusion. There is a very large right-sided pleural effusion. There is a large left-sided pleural effusion. - CT of chest without contrast ordered earlier, pending - V/Q scan ordered, however unable to perform as it is the weekend and there is no one on-call The patient is at risk for PE. Unable to do CT of the chest yesterday due to KIAH. Most recent sCr still outside the range for CTA Chest. Will start patient on IV heparin drip, prophylactically until he can get appropriate imaging - bilateral pleural effusions, worsening, consulted General surgery to evaluate, patient may potentially need a thoracentesis - patient's condition is guarded, at high risk for decompensation, will transfer to ICU - repeat CBC, CMP, Trop, ABG STAT, type and screen - consult vascular access - will broaden ABX coverage, discontinue levofloxacin and start on Zosyn Patient is full code. I have discussed with him the potential complications that can take place. I have discussed the process of cardiopulmonary resuscitation detail. At this time patient has made a decision to change code status to limited. He does not wish to have chest compressions. However, is open to BiPAP, intubation, cardioversion, and pharmacological care. Patient also voiced that he does not wish to have any further intervention or treatment if a cerebrovascular event were to ensue. Patient was transferred to the ICU and was seen there. He continues to rapidly decompensate. That time decision was made to transfer patient to another facility with higher level of care and appropriate resources. Patient was ac cepted by [facility]. Spoke with Dr. Tenorio about patient and his acute decompensation. Patient was immediately excepted. Plan to transfer immediately, will go to the ICU of the transferring facility. There was a concern for potential respiratory compromise prior to transfer as blood gases now worsening. Discussed with ER physician, Dr. Hughes, requested to have patient seen and determine if he will need to be intubated prior to transfer. In the interim patient was trialed on the BiPAP an tolerated well with improved respiratory state. Patient was transferred on BiPAP.
[2018-06-23] MEDS: GABAPENTIN 400 MG CAPSULE PO (21:10)
--- NOTE | 2018-06-23 22:09 | PM.CN ---
History of Present Illness Date Patient Seen: 06/23/18 Time Patient Seen: 21:51 Chief complaint: couldn't breathe Reason for consult: Effusions Requesting provider: Yessenia Bishop Narrative: Patient is a gentleman who is a longstanding C6 quad. He has a suprapubic tube. He states his problems began after May 02 when he fell and his cystostomy tube dislodged. He went to the ER and it was replaced. He said that he was treated for pneumonia about that time but I have none of those records. He believes he was treated with Levaquin but did not take all of it because of diarrhea. He developed a cough again a few days ago and presented the ER was found to have ammonia was admitted yesterday and begun on Zosyn. He had received a dose it appears of ceftriaxone and or Levaquin in the emergency room. Despite this treatment he has rapidly deteriorated. Thus I was asked to see him and possibly tap his lungs. He denies any abdominal pain. He is short of breath. Does have a cough. He is a smoker. [facility] Medical History Aortic stenosis (Chronic Unknown) COPD (chronic obstructive pulmonary disease) (Chronic Unknown) Erectile dysfunction (Chronic Unknown) Neurogenic bladder (Chronic Unknown) PAD (peripheral artery disease) (Chronic Unknown) Paraplegia (Chronic ~1969) Suprapubic catheter (Chronic Unknown) Surgical History History of ankle surgery (Resolved Unknown) History of bladder stone (Resolved ~09/2014) History of bladder surgery (Resolved Unknown) History of open reduction and internal fixation (ORIF) procedure (Resolved Unknown) History of pressure ulcer (Resolved Unknown) Hx of cataract surgery (Resolved Unknown) Family History Brother Diabetes mellitus Father Skin cancer Mother Diabetes mellitus Social History household members: family Smoking Status: Current every day smoker alcohol intake: current substance use type: marijuana Family History Brother Diabetes mellitus Father Skin cancer Mother Diabetes mellitus Social History household members: family Smoking Status: Current every day smoker alcohol intake: current substance use type: marijuana Meds Home Medications Medication Instructions Recorded Confirmed Type Wheelchair Air Compression Cushion #1 ea 12/21/17 06/22/18 Rx gabapentin 400 mg capsule 400 mg PO TID #90 cap 12/21/17 06/22/18 Rx disabled parking permit #1 ea 01/24/18 06/22/18 Rx Allergies Allergy/AdvReac Type Severity Reaction Status Date / Time No Known Drug Allergies Allergy Unverified 06/22/18 12:12 Review of Systems Review of Systems No chest pain. No prior heart attacks. No nausea and vomiting. Does not think his urinary catheter is quite right. Is a C6 quad. Has been having treatment for a sacral decubitus. Exam Vital Signs (past 8 hours): - 06/23/18 16:08 06/23/18 16:38 06/23/18 17:15 Temperature 97.9 F 97.5 F L Pulse Rate 72 Respiratory Rate 20 Blood Pressure 151/85 H 190/119 H Pulse Oximetry 100 06/23/18 17:23 06/23/18 19:54 06/23/18 20:06 Temperature 97.5 F L 97.5 F L Pulse Rate 78 73 Respiratory Rate 24 22 Blood Pressure 190/93 H 188/93 H Pulse Oximetry 96 96 97 06/23/18 21:03 06/23/18 22:02 Temperature Pulse Rate 75 67 Respiratory Rate 20 Blood Pressure 135/79 Pulse Oximetry 93 96 Oxygen Delivery Method High Flow Nasal Cannula Oxygen Flow Rate 2 Narrative Exam Narrative: Breathing hard. No nodes the neck or supraclavicular areas. His trachea is midline. No crepitance of his chest wall. His lungs are essentially clear anteriorly. Decreased in the bases. Percuss equally Heart regular rate and rhythm little rapid. No heave lift or thrill Abdomen is scaphoid soft nontender without mass. Liver and spleen are not palpably enlarged Suprapubic tube is in place at present. Objective Labs Result Diagrams: 06/23/18 06:25 06/23/18 06:25 Labs: Laboratory Results - last 24 hr 06/22/18 06/23/18 06/23/18 23:10 01:58 06:25 WBC 6.8 RBC 4.63 Hgb 13.0 L Hct 40.5 L MCV 87.4 MCH 28.0 MCHC 32.1 RDW 14.0 Plt Count 259 Total Counted 100 Seg Neutrophils % 89.0 H Lymphocytes % (Manual) 6.0 L Monocytes % (Manual) 4.0 Myelocytes % 1.0 H Neutrophils # (Manual) 6052 H RBC Morphology Normal morphology Sodium Potassium Chloride Carbon Dioxide BUN Creatinine Estimated GFR BUN/Creatinine Ratio Glucose Calcium Magnesium Troponin I 0.075 H Chlamy pneumoniae PCR Not detected Adenovirus (PCR) Not detected B.parapertussis DNA PCR Not detected Coronavirus OC43 (PCR) Not detected Coronavirus HKU1 (PCR) Not detected Coronavirus 229E (PCR) Not detected Coronavirus NL63 (PCR) Not detected Human Metapneumovir PCR Not detected Influenza Type A (PCR) Not detected Influenza Type B (PCR) Not detected M. pneumoniae (PCR) Not detected Parainfluenza 1 (PCR) Not detected Parainfluenza 2 (PCR) Not detected Parainfluenza 3 (PCR) Not detected Parainfluenza 4 (PCR) Not detected RSV (PCR) Not detected Entero/Rhino (PCR) Not detected 06/23/18 06/23/18 06/23/18 06:25 06:25 16:09 WBC RBC Hgb Hct MCV MCH MCHC RDW Plt Count Total Counted Seg Neutrophils % Lymphocytes % (Manual) Monocytes % (Manual) Myelocytes % Neutrophils # (Manual) RBC Morphology Sodium 140 Potassium 4.9 Chloride 113 H Carbon Dioxide 16 L BUN 61 H Creatinine 2.10 H 1.90 H Estimated GFR 31.5 L 35.3 L BUN/Creatinine Ratio 29.0 H Glucose 109 Calcium 8.7 Magnesium 1.9 Troponin I 0.074 H Chlamy pneumoniae PCR Adenovirus (PCR) B.parapertussis DNA PCR Coronavirus OC43 (PCR) Coronavirus HKU1 (PCR) Coronavirus 229E (PCR) Coronavirus NL63 (PCR) Human Metapneumovir PCR Influenza Type A (PCR) Influenza Type B (PCR) M. pneumoniae (PCR) Parainfluenza 1 (PCR) Parainfluenza 2 (PCR) Parainfluenza 3 (PCR) Parainfluenza 4 (PCR) RSV (PCR) Entero/Rhino (PCR) Assessment & Plan Assessment & Plan narrative: Patient has deteriorated last 24 hr remarkably. I have reviewed his chest x-rays for admission and a CT scan and chest x-rays from today. He has developed significant bilateral pleural effusions that are not really well seen in upright view suggesting he may have deep sulci posteriorly that much fluid. The appearance of his lungs has worsened as well over the last day. Renal function was quite abnormal and admission and it is not clear to me whether the suprapubic tube has anything to do with that. His UA is quite abnormal but it probably would be given the chronicity of this tube. He does not seem to have any intra-abdominal pathology that is obvious though he is a C6 quad. Blood gas is worrisome as he is acidotic though he is and hypoxic though he is maintaining a normal CO2. Given the rapidity with which she is breathing it suggests that he can't quite compensate for his acidosis. Given the degree of deterioration we have seen in the last 24 hr I think this patient is best served by treatment in a higher level of care with pulmonology ID and Urology available. Determination is be made now whether we should intubate him but 1st BiPAP will be tried.
[2018-06-23 22:12] LABS: pH ABG 7.22 (7.35-7.45)
[2018-06-23 22:13] LABS: Fractionated Inspired Oxygen 0.21; HCO3 ABG 16 mmol/L (22-26); Oxygen Saturation ABG 85 % (95-100); PCO2 ABG 38.7 mmHg (35-45); PO2 ABG 59 mmHg (80-100); TCO2 ABG 17 mmol/L (21-31)
[2018-06-23 22:22] LABS: Add Manual Diff / Slide Review NO; Basophils Absolute Auto 0 /uL (0-100); Basophils Percent Auto 0.1 % (0-2); Eosinophils Absolute Auto 0 /uL (0-450); Hematocrit 40.1 % (41-53); Hemoglobin 12.8 g/dL (13.5-17.5); Lymphocytes Absolute Auto 500 /uL (1100-4500); Lymphocytes Percent Auto 5.8 % (25-40); Mean Corpuscular HGB Conc 31.9 % (30-36); Mean Corpuscular Hemoglobin 28.1 PG (26-34); Mean Corpuscular Volume 88.2 fL (80-100); Monocytes Absolute Auto 200 /uL (0-900); Monocytes Percent Auto 1.8 % (3-14); Neutrophils Absolute Auto 7600 /uL (1500-7000); Neutrophils Percent Auto 92.3 % (50-75); Platelet Count 267 X10^3/uL (150-400); Red Blood Cell Count 4.55 X10^6/uL (4.5-5.9); Red Cell Distribution Width 14.2 % (11.6-14.8); White Blood Cell Count 8.2 X10^3/uL (4.5-11.0)
[2018-06-23 22:35] LABS: Alanine Aminotransferase 45 IU/L (21-72); Albumin 3.2 g/dL (3.5-5.0); Albumin Globulin Ratio 1.1 (1.0-2.8); Alkaline Phosphatase 55 U/L (38-126); Aspartate Aminotransferase 39 IU/L (17-59); BUN Creatinine Ratio 30.4 (6-22); Bilirubin Total 0.3 mg/dL (0.2-1.3); Blood Urea Nitrogen 73 mg/dL (9-20); Calcium 8.8 mg/dL (8.4-10.2); Carbon Dioxide 17 mmol/L (22-32); Chloride 112 mmol/L (98-107); Glucose 138 mg/dL (80-110); HEMOLYSIS < 15 (0-50); Potassium 5.2 mmol/L (3.4-5.1); Sodium 140 mmol/L (137-145); Total Protein 6.2 g/dL (6.3-8.2)
[2018-06-23] MEDS: PIPERACILLIN-TAZO 3.375 GM/50 ML FROZ.PIGGY IV (23:09)
[2018-06-23 23:13] LABS: Troponin I 0.205 ng/mL (0.01-0.034)
[2018-06-23 23:15] LABS: pH ABG 7.25 (7.35-7.45)
[2018-06-23 23:16] LABS: HCO3 ABG 16 mmol/L (22-26); Oxygen Saturation ABG 98 % (95-100); PO2 ABG 118 mmHg (80-100); TCO2 ABG 17 mmol/L (21-31)
[2018-06-23 23:17] LABS: Fractionated Inspired Oxygen 0.35
--- NOTE | 2018-06-23 23:35 | PC.NURSE ---
2315 - Received critical troponin of 0.205. ED Dr. Hughes on phone with Dario BRIDGE MANAGER when result received. Notified both Saul and Dario and patient's nurse Kalyn of result.
--- NOTE | 2018-06-23 23:53 | PC.NURSE ---
2350- Patient transferred to room 105 at 2115-pm Patient is working hard to breathe and states he feels unwell. Patient started on o2 and respiratory therapy called. ABG obtained and MD notified of critical result. Patient placed on Bipap. Patient medicated for anxiety per order. Patient in NSR. Dr. Rodriguez here to see patient. CXR done. Patient continues to feel significant air hunger. 2230- Dr. Hughes here to evaluate need for intubation. Patient states he is feeling better with Bipap. Work of breathing is still high. Patient ABG obtained at 2255 and it is improved. Patient will transfer to [facility] in [place]. Patient aware of plan and patient brother notified. Report called to Vishal EDWARDS. Report and transfer documents given to transport team. Patient remains alert and is aware of the plan. Vitals are stable at the time of transfer.
--- NOTE | 2018-06-24 00:14 | RT ---
PT LEFT W/ [facility]
== END 2018-06-24 00:20 | disposition short-term general hospital (02) | DRG 193 ==
LOC: ED 17:20 → AC 06-23 00:26 → ICU 04-30 15:47
PROVIDERS: Emergency Medicine; Nurse Practitioner Gerontology; Admitting Provider Internal Medicine; Emergency Provider Nurse Practitioner Family; PCP Family Medicine; Visit Provider Internal Medicine
DX: J18.9 Pneumonia, unspecified organism (principal); L89.153 Pressure ulcer of sacral region, stage 3; J90 Pleural effusion, not elsewhere classified; E87.2 Acidosis; N17.9 Acute kidney failure, unspecified; G82.20 Paraplegia, unspecified; J44.9 Chronic obstructive pulmonary disease, unspecified; T14.8XXS Other injury of unspecified body region, sequela; F17.210 Nicotine dependence, cigarettes, uncomplicated; R06.03 Acute respiratory distress
CPT/HCPCS: 36415; 36600; 71045; 71250; 80048; 80053; 81001; 81003; 81015; 82550; 82565; 82805; 82962; 83605; 83735; 83880; 84145; 84484; 85025; 85379; 86850; 86870; 86900; 86901; 87040; 87077; 87086; 87186; 87400; 87449; 87633; 93005; 93010; 93306; 94640; 94660; 94760; 94762; 96361; 96365; 96366; 96375; 99232; 99284; 99285; 99406; G0378; J1644; J1940; J1956; J2270; J2543; J2930